=== PATIENT | female | born 1980 | race Caucasian/White ===

== ENCOUNTER 2017-12-31 21:08 | Emergency (ER) | payer SELFPAY ==
[2017-12-31 21:57] LABS: Absolute Lymphocytes (CBC) 3.4 K/uL (0.7-4.9); Absolute Neutrophil 9.4 K/uL (1.8-8.0); Eosinophils % 1.1 % (0-4.4); Hematocrit 43.8 % (36.0-45.0); Lymphocytes % 24.2 % (15.3-44.8); MCH 34.2 pg (27.0-35.0); MCV 102.4 fL (80-100); MPV 8.1 fL (7.6-11.3); Monocytes % 6.9 % (3.3-12.3); RBC Red Blood Cell Count 4.27 M/uL (3.86-4.86)
[2017-12-31 22:00] LABS: Protime INR 1.01
[2017-12-31 22:06] LABS: Bicarbonate 31 mEq/L (21-31); Glucose Level 117 mg/dL (65-120); Potassium 3.5 mEq/L (3.6-5.0); Sodium Level 138 mEq/L (135-145)
[2017-12-31 22:12] LABS: ALT/SGPT 33 IU/L (10-60); AST/SGOT 57 IU/L (10-42); Albumin 3.6 g/dL (3.2-5.5); Alkaline Phosphatase 134 IU/L (42-121); BUN Blood Urea Nitrogen 8 mg/dL (6-20); Bilirubin Direct 0.2 mg/dL (0-0.2); Bilirubin Total 0.6 mg/dL (0.3-1.2); Creatine Phosphokinase 36 IU/L (22-269); Glomerular Filtration Rate > 90 mL/min (=/>90); Magnesium 1.7 mg/dL (1.8-2.5); Protein, Total 7.1 g/dL (6.0-8.3)
[2017-12-31 22:15] LABS: CKMB Creatine Kinase MB 1.4 ng/ml (0.3-4.0)
[2017-12-31] MEDS ORDERED: KETOROLAC 30 MG/ML INJ ONE (23:55)
[2018-01-01 00:05] LABS: Urine Blood NEGATIVE (NEG); Urine Glucose NEGATIVE (NEG); Urine Protein 1+ (NEG)
--- NOTE | 2018-01-01 03:12 | EDPHYS ---
Physician Documentation [facility] Name: Yari Smith Age: 37 yrs Sex: Female : 1980 Arrival Date: 12/31/2017 Time: 21:10 Bed 8 Private MD: ED Physician Jaylen Gutierrez HPI: 12/31 23:33 This 37 yrs old Female presents to ER via Wheelchair with complaints of LEG tw4 NUMBNESS, High Blood Pressure. 23:33 The patient has elevated blood pressure and discovered this at home. Onset: The tw4 symptoms/episode began/occurred today. Modifying factors:. Severity of symptoms: At its worst the blood pressure was moderate, in the emergency department the blood pressure is unchanged. The patient has not experienced similar symptoms in the past. 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 - Social history:: Smoking status: Patient uses tobacco products, smokes one pack cigarettes per day. Patient uses street drugs, marijuana. ROS: 23:33 Constitutional: Negative for fever, chills, and weight loss, Cardiovascular: Negative tw4 for chest pain, palpitations, and edema, Respiratory: Negative for shortness of breath, cough, wheezing, and pleuritic chest pain, Abdomen/GI: Negative for abdominal pain, nausea, vomiting, diarrhea, and constipation, MS/Extremity: Negative for injury and deformity, Skin: Negative for injury, rash, and discoloration. 23:33 Neuro: Positive for numbness, Negative for altered mental status, dizziness, gait disturbance, headache, speech changes, syncope, near syncope, tingling, tinnitus, tremor, visual changes. Exam: 23:33 Constitutional: This is a well developed, well nourished patient who is awake, alert, tw4 and in no acute distress. Head/Face: Normocephalic, atraumatic. Chest/axilla: Normal chest wall appearance and motion. Nontender with no deformity. No lesions are appreciated. Cardiovascular: Regular rate and rhythm with a normal S1 and S2. No gallops, murmurs, or rubs. Normal PMI, no JVD. No pulse deficits. Respiratory: Lungs have equal breath sounds bilaterally, clear to auscultation and percussion. No rales, rhonchi or wheezes noted. No increased work of breathing, no retractions or nasal flaring. Abdomen/GI: Soft, non-tender, with normal bowel sounds. No distension or tympany. No guarding or rebound. No evidence of tenderness throughout. Back: No spinal tenderness. No costovertebral tenderness. Full range of motion. 23:33 Musculoskeletal/extremity: Extremities: grossly normal except: left foot cool to touch compared to right, good cap refill and perfusion, ROM: no acute changes, Perfusion: the patient is normally perfused throughout, Perfusion: the extremity is pink, warm. Vital Signs: 21:20 BP 128 / 80; Pulse 96; Resp 16; Temp 97.4; Pulse Ox 100% on R/A; Weight 63.5 kg (R); la1 Height 5 ft. 3 in. (160.02 cm); 21:52 BP 139 / 104; Pulse 88; Resp 14; Pulse Ox 97% on R/A; Pain 8/10; tl1 22:19 BP 115 / 79; Pulse 77; Resp 19; Pulse Ox 98% ; tl1 0407 00:44 BP 137 / 86; Pulse 90; Resp 18; Pulse Ox 98% on R/A; tl2 01:30 BP 136 / 97; Pulse 83; Resp 16; Pulse Ox 97% on R/A; tl2 03:18 BP 139 / 81; Pulse 87; Resp 17; Temp 97.6; Pulse Ox 98% ; Pain 2/10; tl1 12/31 21:20 Body Mass Index 24.80 (63.50 kg, 160.02 cm) la1 MDM: 12/31 21:28 Patient medically screened. tw4 23:33 Differential diagnosis: hypertensive crisis, arterial occlusion, deep venous tw4 thrombosis. Data reviewed: vital signs, nurses notes. Counseling: I had a detailed discussion with the patient and/or guardian regarding: the historical points, exam findings, and any diagnostic results supporting the discharge/admit diagnosis. 12/31 21:31 Order name: Basic Metabolic Panel; Complete Time: 22:48 tw4 12/31 21:31 Order name: BNP; Complete Time: 22:48 12/31 21:31 Order name: CBC with Diff; Complete Time: 22:48 12/31 21:31 Order name: Ckmb; Complete Time: 22:48 12/31 21:31 Order name: CPK; Complete Time: 22:48 12/31 21:31 Order name: LFT's; Complete Time: 22:48 12/31 21:31 Order name: Magnesium; Complete Time: 22:48 12/31 21:31 Order name: PT-INR; Complete Time: 22:48 12/31 21:31 Order name: Ptt, Activated; Complete Time: 22:48 12/31 21:31 Order name: Troponin (emerg Dept Use Only); Complete Time: 22:48 12/31 21:31 Order name: XRAY Chest (1 view) 12/31 22:39 Order name: Urine Dipstick--Ancillary (enter results); Complete Time: 00:19 oe 12/31 22:40 Order name: Urine --Ancillary (enter results); Complete Time: 00:19 oe 01/01 00:55 Order name: Troponin (emerg Dept Use Only) 12/31 21:31 Order name: Urine Test (obtain specimen); Complete Time: 22:38 12/31 21:31 Order name: Cardiac monitoring; Complete Time: 21:45 12/31 21:31 Order name: EKG - Nurse/Tech; Complete Time: 21:38 12/31 21:31 Order name: IV Saline Lock; Complete Time: 21:39 12/31 21:31 Order name: Labs collected and sent; Complete Time: 21:39 12/31 21:31 Order name: O2 Per Protocol; Complete Time: 21:45 12/31 21:31 Order name: O2 Sat Monitoring; Complete Time: 21:45 12/31 21:31 Order name: Urine Dipstick-Ancillary (obtain specimen); Complete Time: 22:38 12/31 21:36 Order name: Extrem Venous W Compress Adrian EDMS 12/31 21:38 Order name: CT Chest For PE Angio tw4 Administered Medications: 23:58 Drug: TORadol 30 mg Route: IVP; Infused Over: 2 mins; Site: left upper arm; tl1 01/01 03:17 Follow up: Response: No adverse reaction; Marked relief of symptoms; Pain is decreased tl1 Disposition: 01/01/18 03:11 Discharged to Home. Impression: Myalgia. - Condition is Stable. - Discharge Instructions: Musculoskeletal Pain, Muscle Pain, Adult, Smoking Cessation, Smoking Cessation, Tips For Success. - Prescriptions for Ibuprofen 800 mg Oral Tablet - take 1 tablet by ORAL route every 8 hours As needed take with food; 30 tablet. - Medication Reconciliation Form, Thank You Letter, Antibiotic Education, Prescription Opioid Use form. - Follow up: Private Physician; When: As needed; Reason: Recheck today's complaints, Continuance of care, Re-evaluation by your physician. - Problem is new. - Symptoms have improved. Signatures: Dispatcher [employer] EDMS Kali Pope RN RN la1 Yaneth Ng RN RN tl1 Jaylen Gutierrez MD MD tw4 Corrections: (The following items were deleted from the chart) 12/31 21:36 21:32 Extremity Venous Uni Ltd+VAS.RAD.BRZ ordered. EDMS EDMS 21:36 21:32 Extremity Venous Uni Ltd+VAS.RAD.BRZ ordered. EDMS EDMS 21:38 21:32 Lower Extremity Artery Uni Ltd+VAS.RAD.BRZ ordered. EDMS EDMS 21:38 21:32 Lower Extremity Artery Uni Ltd+VAS.RAD.BRZ ordered. EDMS EDMS
--- NOTE | 2018-01-01 03:12 | ER ---
Nurse's Notes [facility] Name: Yari Smith Age: 37 yrs Sex: Female : 1980 Arrival Date: 12/31/2017 Time: 21:10 Bed 8 Private MD: Diagnosis: Myalgia Presentation: 12/31 21:19 Presenting complaint: Patient states: I am having pain in numbness in both of my legs, la1 last time this happened I had ULICES DVT and was [place]. Pt reports pain started today. Pt reports chest pain that started last night as well. Transition of care: patient was not received from another setting of care. Onset of symptoms was December 31, 2017. Care prior to arrival: None. 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 - Social history:: Smoking status: Patient uses tobacco products, smokes one pack cigarettes per day. Patient uses street drugs, marijuana. Screenin:37 Abuse screen: Denies threats or abuse. Denies injuries from another. Nutritional tl1 screening: No deficits noted. Tuberculosis screening: No symptoms or risk factors identified. Fall Risk IV access (20 points). Assessment: 21:53 General: Appears uncomfortable, Behavior is calm, cooperative, appropriate for age. tl1 Pain: Complains of pain in chest, right arm, left arm, right leg and left leg Pain currently is 8 out of 10 on a pain scale. Quality of pain is described as burning, aching, sharp. Neuro: Level of Consciousness is awake, alert, obeys commands, Oriented to person, place, time, situation. Cardiovascular: Reports chest pain, Capillary refill < 3 seconds Patient's skin is warm and dry. Respiratory: Airway is patent Trachea midline Respiratory effort is even, unlabored, Respiratory pattern is regular, symmetrical, Breath sounds are clear bilaterally. GI: Abdomen is non-distended, Bowel sounds present X 4 quads. Abd is soft and non tender X 4 quads. : No signs and/or symptoms were reported regarding the genitourinary system. Musculoskeletal: Reports numbness in right leg and left leg pain in right leg and left leg. 22:25 Reassessment: Patient appears in no apparent distress at this time. Patient and/or tl2 family updated on plan of care and expected duration. Pain level reassessed. Patient is alert, oriented x 3, equal unlabored respirations, skin warm/dry/pink. sent pt to restroom to give urine sample for UPT before CT scan. 01/01 00:44 Reassessment: Patient appears in no apparent distress at this time. Patient and/or tl2 family updated on plan of care and expected duration. Pain level reassessed. Patient is alert, oriented x 3, equal unlabored respirations, skin warm/dry/pink. Vital Signs: 12/31 21:20 BP 128 / 80; Pulse 96; Resp 16; Temp 97.4; Pulse Ox 100% on R/A; Weight 63.5 kg (R); la1 Height 5 ft. 3 in. (160.02 cm); 21:52 BP 139 / 104; Pulse 88; Resp 14; Pulse Ox 97% on R/A; Pain 8/10; tl1 22:19 BP 115 / 79; Pulse 77; Resp 19; Pulse Ox 98% ; tl1 01/01 00:44 BP 137 / 86; Pulse 90; Resp 18; Pulse Ox 98% on R/A; tl2 01:30 BP 136 / 97; Pulse 83; Resp 16; Pulse Ox 97% on R/A; tl2 03:18 BP 139 / 81; Pulse 87; Resp 17; Temp 97.6; Pulse Ox 98% ; Pain 2/10; tl1 12/31 21:20 Body Mass Index 24.80 (63.50 kg, 160.02 cm) la1 ED Course: 12/31 21:10 Patient arrived in ED. al2 21:20 Triage completed. la1 21:21 Arm band placed on left wrist. la1 21:21 Patient has correct armband on for positive identification. Placed in gown. Bed in low tl1 position. Call light in reach. Side rails up X 1. Adult w/ patient. 21:28 Jaylen Gutierrez MD is Attending Physician. tw4 21:37 Yaneth Ng, RN is Primary Nurse. tl1 21:37 No provider procedures requiring assistance completed. Inserted saline lock: 20 gauge tl1 in right antecubital area, using aseptic technique. Blood collected. 21:41 Radiology exam delayed due to lab results not completed at this time. (BUN/Creatinine) jg1 test not completed at this time. 21:51 XRAY Chest (1 view) In Process Unspecified. EDMS 21:51 X-ray completed. Portable x-ray completed in exam room. Patient tolerated procedure kc2 well. 22:27 Radiology exam delayed due to test not completed at this time. jg1 22:37 Patient taken to ultrasound. abel 23:[address] abel 23:31 Extrem Venous W Compress Ulices In Process Unspecified. EDMS 23:44 Radiology exam delayed due to IV insertion attempt and/or patient not having jg1 appropriate IV at this time. 23:50 Inserted 18 gauge 10 cm midline to left upper basilic vein on first attempt. Line with fc good blood return and flushes well. 0407 00:09 CT Chest For PE Angio In Process Unspecified. EDMS 03:18 IV discontinued, intact, bleeding controlled, No redness/swelling at site. Pressure tl1 dressing applied. Administered Medications: 04 23:58 Drug: TORadol 30 mg Route: IVP; Infused Over: 2 mins; Site: left upper arm; tl1 04 03:17 Follow up: Response: No adverse reaction; Marked relief of symptoms; Pain is decreased tl1 Outcome: 03:11 Discharge ordered by . tw4 03:19 Discharged to home ambulatory, with family. tl1 03:19 Condition: good 03:19 Discharge instructions given to patient, family, Instructed on discharge instructions, follow up and referral plans. medication usage, Demonstrated understanding of instructions, follow-up care, medications, Prescriptions given X 1. 03:19 Patient left the ED. tl1 Signatures: Dispatcher [employer] EDMS Felicia Patterson Felicia, RN RN fc Attema, Lee, RN RN stephen1 Yaneth Ng, RN RN tl1 Dmitri Cook jd, Kelsie 2 Margaret Thornton RN RN gene2 Love, Jaylen Perez, [place] tw4
[2018-01-01 03:32] VITALS: BP 139/81; TEMP 97.6; O2SAT 98
--- NOTE | 2018-01-01 10:05 | RAD REPORT ---
EXAM DESCRIPTION: VAS - Extrem Venous W Compress Adrian - 12/31/2017 11:31 pm CLINICAL HISTORY: Bilateral leg edema and swelling. COMPARISON: None. TECHNIQUE: Real-time sonographic interrogation of the left and right lower extremity deep venous sys tems was performed. FINDINGS: Normal compressibility, flow augmentation, phasic flow and spontaneous flow is identified in both the left and right lower extremity deep venous systems. IMPRESSION: No sonographic evidence of left or right lower extremity deep venous thrombosis.
--- NOTE | 2018-01-01 10:38 | RAD REPORT ---
EXAM DESCRIPTION: RAD - Chest Single View - 12/31/2017 9:52 pm CLINICAL HISTORY: Chest pain. COMPARISON: 05/12/2016 FINDINGS: Portable technique limits examination quality. The lungs are grossly clear. The heart is normal in size. No displaced fractures. IMPRESSION: No acute intrathoracic process suspected.
--- NOTE | 2018-01-01 11:02 | RAD REPORT ---
EXAM DESCRIPTION: VAS - Lower Extremity Arterial Bilat - 12/31/2017 11:31 pm CLINICAL HISTORY: Leg pain COMPARISON: None. TECHNIQUE: Bilateral lower extremity arterial Doppler examination was performed with waveform charlotte santo FINDINGS: The right common femoral artery, superficial femoral artery and popliteal artery are triphasic. The r ight posterior tibial artery appears biphasic. The right dorsalis pedis artery appears monophasic and blunted. The left common femoral artery, superficial femoral artery and popliteal artery appear triphasic. The left posterior tibial artery and dorsalis pedis artery are biphasic. No occlusion is seen. IMPRESSION: Monophasic flow seen in the right dorsalis pedis artery suggesting distal disease on the right. Consider followup CT angiography of the lower extremities for better detailed assessment and evaluation for possible treatable lesion.
--- NOTE | 2018-01-01 11:07 | RAD REPORT ---
EXAM DESCRIPTION: CT - Chest For Pe Angio - 01/01/2018 6:47 am CLINICAL HISTORY: Chest pain. COMPARISON: None. TECHNIQUE: CT angiogram of the pulmonary arteries was performed with MIP. All CT scans are performed using dose optimization technique as appropriate and may include automated exposure control or mA/KV adjustment according to patient size. FINDINGS: No evidence of pulmonary thromboembolism. No acute aortic finding demonstrated. The lungs are clear. No significant pericardial or pleural fluid. No concerning bony finding. Fatty liver. IMPRESSION: No evidence of pulmonary thromboembolism. No acute lung findings.
--- NOTE | 2018-01-01 12:04 | EKG ---
Test Date: 2017-12-31 Test Time: 21:37:28 [employer]: CHAKA MEASUREMENT RESULTS: Intervals: Rate: 82 AK: 150 QRSD: 76 QT: 378 QTc: 441 [place]: P: 66 AK: 150 QRS: 25 T: 44 INTERPRETIVE STATEMENTS: Normal sinus rhythm Normal ECG Compared to ECG 05/10/2016 09:24:20 Sinus arrhythmia no longer present Myocardial infarct finding no longer present Electronically Signed On 01-01-18 12:03:31 CDT by Heraclio Aguilar
== END 2018-01-01 03:19 | disposition home or self-care (01) ==
LOC: ER 21:08
DX: M79.1 Myalgia (principal); Z86.718 Personal history of other venous thrombosis and embolism; Z79.01 Long term (current) use of anticoagulants
CPT/HCPCS: 36415; 71045; 71275; 80048; 80076; 81003; 81025; 82550; 82553; 83735; 83880; 84484; 85025; 85610; 85730; 93005; 93925; 93970; 96374; 99284; Q9967

== ENCOUNTER 2018-02-16 18:24 | Emergency (ER) | payer SELFPAY ==
[2018-02-16] MEDS ORDERED: ASPIRIN 81 MG CHEWABLE TABLET ONE (19:08)
[2018-02-16] MEDS ORDERED: CLOPIDOGREL 75 MG TABLET ONE (19:09)
[2018-02-16] MEDS ORDERED: ONDANSETRON 4 MG/2 ML VIAL ONE (19:18)
[2018-02-16] MEDS ORDERED: MORPHINE 4 MG/ML SYR ONE ×2 (19:24→19:40)
[2018-02-16 19:29] LABS: Absolute Lymphocytes (CBC) 2.9 K/uL (0.7-4.9); Absolute Monocytes 0.6 K/uL (0.1-1.3); Absolute Neutrophil 14.8 K/uL (1.8-8.0); Basophils % 0.8 % (0-1.3); Eosinophils % 0.6 % (0-4.4); Hematocrit 47.1 % (36.0-45.0); Lymphocytes % 15.5 % (15.3-44.8); MCV 102.1 fL (80-100); MPV 7.9 fL (7.6-11.3); Monocytes % 3.1 % (3.3-12.3); RBC Red Blood Cell Count 4.61 M/uL (3.86-4.86)
[2018-02-16] MEDS ORDERED: HEPARIN 5000 UNIT/ML 1 ML VIAL ONE (19:32)
[2018-02-16] MEDS ORDERED: HEPARIN/D5W 25,000 UNIT/500 ML BAG IV ONE (19:32)
[2018-02-16 19:36] LABS: Bicarbonate 21 mEq/L (21-31); Glucose Level 200 mg/dL (65-120); Potassium 3.9 mEq/L (3.6-5.0); Sodium Level 138 mEq/L (135-145)
[2018-02-16 19:42] LABS: ALT/SGPT 48 IU/L (10-60); AST/SGOT 51 IU/L (10-42); Albumin 4.4 g/dL (3.2-5.5); Alkaline Phosphatase 123 IU/L (42-121); BUN Blood Urea Nitrogen 14 mg/dL (6-20); Bilirubin Direct 0.1 mg/dL (0-0.2); Bilirubin Total 0.8 mg/dL (0.3-1.2); Creatine Phosphokinase 90 IU/L (22-269); Protein, Total 8.1 g/dL (6.0-8.3)
--- NOTE | 2018-02-16 19:55 | RAD REPORT ---
EXAM DESCRIPTION: RAD - Chest Single View - 02/16/2018 7:45 pm CLINICAL HISTORY: Chest pain COMPARISON: December 31 TECHNIQUE: AP portable chest image was obtained 1943 hours . FINDINGS: Lungs are clear. Heart and vasculature are normal. No measurable pleural effusion and no p neumothorax. No gross bony abnormality seen. No acute aortic findings suspected. IMPRESSION: No acute cardiopulmonary process. No significant interval change.
[2018-02-16 20:07] LABS: CKMB Creatine Kinase MB 6.4 ng/ml (0.3-4.0)
--- NOTE | 2018-02-16 21:08 | ER ---
Nurse's Notes [facility] Name: Yari Smith Age: 37 yrs Sex: Female : 1980 Arrival Date: 02/16/2018 Time: 18:25 Bed 2 Private MD: Out, [facility] Diagnosis: STEMI Presentation: 02/16 18:40 Presenting complaint: Patient states: Chest pain started 30-40 min. ago, goes down jl7 bilateral arms. Transition of care: patient was not received from another setting of care. Onset of symptoms was February 16, 2018. Risk Assessment: Do you want to hurt yourself or someone else? Patient reports no desire to harm self or others. Initial Sepsis Screen: Does the patient meet any 2 criteria? No. Patient's initial sepsis screen is negative. Does the patient have a suspected source of infection? No. Patient's initial sepsis screen is negative. Care prior to arrival: None. 18:40 Method Of Arrival: Ambulatory jl7 18:40 Acuity: RITO 2 jl7 Triage Assessment: 18:43 General: Appears uncomfortable, Behavior is cooperative, anxious. Pain: Complains of jl7 pain in diaphragm \\T\\ chest Pain radiates to right arm and left arm Pain currently is 10 out of 10 on a pain scale. Quality of pain is described as pressure, stabbing, Pain began 1 hour ago. Is continuous. EENT: No signs and/or symptoms were reported regarding the EENT system. Neuro: Level of Consciousness is awake, alert, obeys commands, Oriented to person, place, time, situation. Cardiovascular: Patient's skin is warm and dry. Respiratory: Airway is patent Respiratory effort is even, unlabored, Respiratory pattern is regular, symmetrical. Derm: Skin is pink, warm \\T\\ dry. 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 - Social history:: Smoking status: Patient uses tobacco products, smokes one pack cigarettes per day. Patient uses alcohol, on a daily basis. couple glasses of wine/day. street drugs, marijuana. - Ebola Screening: : No symptoms or risks identified at this time. Screenin:52 Abuse screen: Denies threats or abuse. Denies injuries from another. Nutritional hb screening: No deficits noted. Tuberculosis screening: No symptoms or risk factors identified. Fall Risk None identified. Assessment: 19:00 Also complains of nausea, shortness of breath. bp 19:00 General: Appears distressed, uncomfortable, Behavior is cooperative, appropriate for bp age, anxious. Pain: Complains of pain in chest Pain radiates to right arm and left arm. Neuro: Level of Consciousness is awake, alert, obeys commands, Oriented to person, place, time, situation, Appropriate for age. Cardiovascular: Reports chest pain, Chest pain is described as "worst pain of my life". Respiratory: Reports shortness of breath. GI: No signs and/or symptoms were reported involving the gastrointestinal system. : No signs and/or symptoms were reported regarding the genitourinary system. EENT: No deficits noted. Derm: No deficits noted. Musculoskeletal: No deficits noted. 19:33 Reassessment: Spoke to life flight who will be here in about 20 min. ao 19:53 Reassessment: [facility] AT B/S FOR TRANSPORT. bp Vital Signs: 18:35 BP 152 / 126; Pulse 81; Resp 24 S; Temp 98; Pulse Ox 100% on R/A; Weight 63.5 kg (R); jl7 Height 5 ft. 3 in. (160.02 cm) (R); Pain 10/10; 18:49 BP 147 / 125; Pulse 90; Resp 20; Pulse Ox 100% ; Pain 10/10; jl7 18:50 BP 146 / 113; Pulse 97; Resp 20; Pulse Ox 100% on R/A; mt 19:00 BP 152 / 127; Pulse 108; Resp 20; Pulse Ox 100% on R/A; mt 19:12 BP 148 / 122; Pulse 107; Resp 20; Pulse Ox 99% on R/A; mt 19:30 BP 156 / 123; Pulse 105; Resp 22; Pulse Ox 99% on R/A; mt 18:35 Body Mass Index 24.80 (63.50 kg, 160.02 cm) 7 ED Course: 18:25 Patient arrived in ED. sb2 18:29 Out, [facility] is Private Physician. sb2 18:32 Alisson Bone, SYDNI is Primary Nurse. jl7 18:41 Triage completed. jl7 18:43 Arm band placed on right wrist. jl7 18:52 Patient has correct armband on for positive identification. Placed in gown. Bed in low hb position. Call light in reach. Side rails up X 1. 18:52 Inserted saline lock: 22 gauge in left antecubital area, using aseptic technique. Blood hb collected. 19:00 campus monitor on. Pulse ox on. NIBP on. bp 19:03 Easton Toscano PA is PHCP. cp 19:03 Chang Daigle MD is Attending Physician. cp 19:10 Inserted saline lock: 20 gauge in right antecubital area, using aseptic technique. ao 19:15 Attending Physician role handed off by Chang Daigle MD ps1 19:15 Clemente Portillo MD is Attending Physician. ps1 19:18 Primary Nurse role handed off by Alisson Bone RN bp 19:18 Houston Wilson, SYDNI is Primary Nurse. bp 19:40 Report given to MONO TROY AT [facility] CON[facility]. bp 19:40 No provider procedures requiring assistance completed. Patient transferred, IV remains bp in place. Oxygen administration via nasal cannula \\T\\ 2L/min. Administered Medications: 19:08 Drug: Aspirin Chewable Tablet 324 mg Route: PO; jl7 19:56 Follow up: Response: No adverse reaction bp 19:10 Drug: PlaVIX 600 mg Route: PO; jl7 19:56 Follow up: Response: No adverse reaction bp 19:22 Drug: Zofran 4 mg Route: IVP; Site: right antecubital; fc 19:55 Follow up: Response: Nausea is decreased bp 19:27 Drug: morphine 4 mg Route: IVP; Site: right antecubital; fc 19:55 Follow up: Response: Pain is decreased bp 19:36 Drug: Heparin (OH-Bolus No thrombolytic) - HEParin 60 units/kg {Co-Signature: bp (Dana Self RN).} Route: IVP; Site: left antecubital; 19:56 Follow up: Response: No adverse reaction bp 19:36 Drug: Heparin (OH Drip) 12 units/kg/hr - (HEParin 79187 units, D5W 500 ml) bp {Co-Signature: fc (Dana Self RN).} Route: IV; Rate: calculated rate; Site: left antecubital; 19:55 Follow up: IV Status: Infusion continued upon transfer bp 19:43 Drug: morphine 4 mg Route: IVP; Site: left antecubital; bp 19:55 Follow up: Response: No adverse reaction; Pain is decreased bp Outcome: 19:54 Transferred by helicopter to [facility]. bp 19:54 critical 19:54 Instructed on the need for transfer. 20:02 ER care complete, transfer ordered by . ps1 20:13 Patient left the ED. bp Signatures: Dispatcher [employer] Dana Vuong RN RN fc Easton Toscano PA PA cp Ortiz, Alex, RN RN Viola Flores RN RN Alisson Underwood RN RN jl7 Irma Norton mo Houston Wilson RN RN bp Clemente Portillo MD MD ps1 Nicolasa Lanza kw1 Velma Yan sb2 Dana Self RN fc Corrections: (The following items were deleted from the chart) 19:40 19:[address] via stretcher. kw1 mw3 19:42 19:40 BP 146 / 113; Pulse 97bpm; Resp 20bpm; Pulse Ox 100% RA; mt mo 20:06 19:46 In radiology for Chest Single View+RAD.RAD.BRLuis. ED mw3
--- NOTE | 2018-02-16 21:08 | EDPHYS ---
Physician Documentation [facility] Name: Yari Smith Age: 37 yrs Sex: Female : 1980 Arrival Date: 02/16/2018 Time: 18:25 Bed 2 Private MD: Out, [facility] ED Physician Clemente Portillo HPI: 02/16 19:15 This 37 yrs old Female presents to ER via Ambulatory with complaints of Chest ps1 Pain. 19:15 The patient or guardian reports chest pain that is located primarily in the anterior ps1 chest wall. The pain radiates to both shoulders. Associated signs and symptoms: Pertinent positives: diaphoresis, nausea. The chest pain is described as a pressure. started 45 min manager paper. Non exertional. Hx of DVT on warfarin 2mg. Has not had levels checked in a while. STEMI on EKG. . 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 - Social history:: Smoking status: Patient uses tobacco products, smokes one pack cigarettes per day. Patient uses alcohol, on a daily basis. couple glasses of wine/day. street drugs, marijuana. - Ebola Screening: : No symptoms or risks identified at this time. ROS: 19:15 Constitutional: Negative for fever, chills, and weight loss, Eyes: Negative for injury, ps1 pain, redness, and discharge, ENT: Negative for injury, pain, and discharge, Neck: Negative for injury, pain, and swelling, Respiratory: Negative for shortness of breath, cough, wheezing, and pleuritic chest pain, Abdomen/GI: Negative for abdominal pain, nausea, vomiting, diarrhea, and constipation, Back: Negative for injury and pain, : Negative for injury, bleeding, discharge, and swelling, MS/Extremity: Negative for injury and deformity. 19:15 Cardiovascular: Positive for chest pain, of the anterior aspect of left upper chest. Exam: 19:15 Constitutional: This is a well developed, well nourished patient who is awake, alert, ps1 and in no acute distress. Head/Face: Normocephalic, atraumatic. Eyes: Pupils equal round and reactive to light, extra-ocular motions intact. Lids and lashes normal. Conjunctiva and sclera are non-icteric and not injected. Chest/axilla: Normal chest wall appearance and motion. Nontender with no deformity. No lesions are appreciated. Respiratory: Lungs have equal breath sounds bilaterally, clear to auscultation and percussion. No rales, rhonchi or wheezes noted. No increased work of breathing, no retractions or nasal flaring. Abdomen/GI: Soft, non-tender, with normal bowel sounds. No distension or tympany. No guarding or rebound. No evidence of tenderness throughout. Back: No spinal tenderness. No costovertebral tenderness. Full range of motion. Skin: Warm, dry with normal turgor. Normal color with no rashes, no lesions, and no evidence of cellulitis. MS/ Extremity: Pulses equal, no cyanosis. Neurovascular intact. Full, normal range of motion. Neuro: Awake and alert, GCS 15, oriented to person, place, time, and situation. Cranial nerves II-XII grossly intact. Sensory grossly intact. 19:15 Cardiovascular: Rate: tachycardic, Rhythm: regular, Pulses: no pulse deficits are appreciated, Edema: is not appreciated. 19:15 ECG was reviewed by the Attending Physician. ps1 Vital Signs: 18:35 BP 152 / 126; Pulse 81; Resp 24 S; Temp 98; Pulse Ox 100% on R/A; Weight 63.5 kg (R); jl7 Height 5 ft. 3 in. (160.02 cm) (R); Pain 10/10; 18:49 BP 147 / 125; Pulse 90; Resp 20; Pulse Ox 100% ; Pain 10/10; jl7 18:50 BP 146 / 113; Pulse 97; Resp 20; Pulse Ox 100% on R/A; mt 19:00 BP 152 / 127; Pulse 108; Resp 20; Pulse Ox 100% on R/A; mt 19:12 BP 148 / 122; Pulse 107; Resp 20; Pulse Ox 99% on R/A; mt 19:30 BP 156 / 123; Pulse 105; Resp 22; Pulse Ox 99% on R/A; mt 18:35 Body Mass Index 24.80 (63.50 kg, 160.02 cm) jl7 MDM: 19:03 Patient medically screened. cp 19:10 ED course: Pt brought back, when triage was doen, ECG performed, ECG at [address] rn elevation anterolateral leads with depression inferior leads. 40 min chest pain. Paged Dr. aguilar, returned call at 1911, recommends transfer given no after hours capability at this facility.. 19:15 Data reviewed: vital signs, nurses notes, EKG. ps1 19:37 Data interpreted: riprap placer: Pulse oximetry:. Test interpretation: by ED ps1 physician or midlevel provider: ECG. Physician consultation: Called Dr. Aguilar for STEMI requested pt to be transferred as they do not have staff to activate labor arbitrator hearing office.. Special discussion:. ED course: STEMI protocol initiated. Pt to be flown to [facility] with STEMI activation. Pt unable to be scanned for PE as this would delay care. Pt given ASA, Morphine, Plavix. Any episodes of hypotension we will thrombolyse. . 02/16 19:06 Order name: Basic Metabolic Panel 02/16 19:06 Order name: BNP; Complete Time: 20:08 02/16 19:06 Order name: CBC with Diff; Complete Time: 19:46 02/16 19:06 Order name: Ckmb 02/16 19:06 Order name: CPK 02/16 19:06 Order name: LFT's; Complete Time: 20:08 02/16 19:06 Order name: Magnesium; Complete Time: 20:08 02/16 19:06 Order name: PT-INR; Complete Time: 19:46 rn 02/16 19:06 Order name: Ptt, Activated; Complete Time: 19:46 rn 02/16 19:06 Order name: Troponin (emerg Dept Use Only); Complete Time: 19:46 rn 02/16 19:07 Order name: Basic Metabolic Panel; Complete Time: 20:08 EDCA 02/16 19:07 Order name: CKMB Creatine Kinase MB; Complete Time: 20:08 [facility] 02/16 19:07 Order name: Creatine Phosphokinase; Complete Time: 20:08 EDCA 02/16 19:04 Order name: EKG; Complete Time: 19:05 cp 02/16 19:04 Order name: EKG - Nurse/Tech; Complete Time: 19:23 cp 02/16 19:06 Order name: XRAY Chest (1 view); Complete Time: 20: rn 02/16 19:06 Order name: EKG; Complete Time: : rn 02/16 19:06 Order name: Cardiac monitoring; Complete Time: : rn 02/16 19:06 Order name: EKG - Nurse/Tech; Complete Time: : rn 02/16 19:06 Order name: IV Saline Lock; Complete Time: : rn 02/16 19:06 Order name: Labs collected and sent; Complete Time: : rn 02/16 19:06 Order name: O2 Per Protocol; Complete Time: rn 02/16 19:06 Order name: O2 Sat Monitoring; Complete Time: rn EC:15 Rate is 108 beats/min. Rhythm is regular. QRS [place] is Normal. MN interval is normal. ps1 QRS interval is normal. QT interval is normal. Q waves are Present. ST Segment is elevated in leads V2, V3, V4, V5. ST Segment is depressed in leads II, III, aVF. Clinical impression: STEMI. Interpreted by me. Administered Medications: 19:08 Drug: Aspirin Chewable Tablet 324 mg Route: PO; 7 19:56 Follow up: Response: No adverse reaction bp 19:10 Drug: PlaVIX 600 mg Route: PO; jl7 19:56 Follow up: Response: No adverse reaction bp 19:22 Drug: Zofran 4 mg Route: IVP; Site: right antecubital; 19:55 Follow up: Response: Nausea is decreased bp 19:27 Drug: morphine 4 mg Route: IVP; Site: right antecubital; fc 19:55 Follow up: Response: Pain is decreased bp 19:36 Drug: Heparin (CO-Bolus No thrombolytic) - HEParin 60 units/kg {Co-Signature: fc bp (Dana Self RN).} Route: IVP; Site: left antecubital; 19:56 Follow up: Response: No adverse reaction bp 19:36 Drug: Heparin (CO Drip) 12 units/kg/hr - (HEParin 15685 units, D5W 500 ml) bp {Co-Signature: fc (Dana Self RN).} Route: IV; Rate: calculated rate; Site: left antecubital; 19:55 Follow up: IV Status: Infusion continued upon transfer bp 19:43 Drug: morphine 4 mg Route: IVP; Site: left antecubital; bp 19:55 Follow up: Response: No adverse reaction; Pain is decreased bp Disposition: 19:37 Critical Care:. ps1 19:42 Critical Care:. ps1 Disposition: 02/16/18 20:02 Transfer ordered to [facility]. Diagnosis is STEMI. - Reason for transfer: Higher level of care. - Accepting physician is Mike. - Condition is Serious. - Problem is new. - Symptoms are unchanged. Critical care time excluding procedures: 19:37 Critical care time: Bedside Care: 30 minutes, Consultation: 10 minutes. Total time: 40 ps1 minutes Signatures: Dispatcher [employer] Dana Vuong RN RN fc Chang Daigle MD MD rn Page, Corey, PA PA cp Leal, Jahala RN RN jl7 Houston Wilson RN RN bp Singer, Phillip, MD MD ps1 Dana Self RN fc Corrections: (The following items were deleted from the chart) 20:13 20:02 02/16/2018 20:02 Transfer ordered to [facility]. bp Diagnosis is STEMI. Reason for transfer: Higher level of care. Accepting physician is Mike. Condition is Serious. Problem is new. Symptoms are unchanged. ps1
[2018-02-16 21:33] VITALS: TEMP 98
[2018-02-16 21:38] VITALS: O2SAT 99
[2018-02-16 21:39] VITALS: BP 156/123
--- NOTE | 2018-02-17 06:44 | EKG ---
Test Date: 2018-02-16 Test Time: 18:56:33 Geographic Analyst: NUNU MEASUREMENT RESULTS: Intervals: Rate: 100 TX: 130 QRSD: 84 QT: 362 QTc: 466 [place]: P: 63 TX: 130 QRS: -28 T: 40 INTERPRETIVE STATEMENTS: Sinus rhythm Anteroseptal infarct, possibly acute Lateral injury pattern ACUTE MS / STEMI Abnormal ECG Compared to ECG 02/16/2018 18:55:21 Atrial premature complex(es) no longer present Myocardial infarct finding still present Electronically Signed On 02-17-18 06:43:37 CDT by Heraclio Aguilar
--- NOTE | 2018-02-17 06:45 | EKG ---
Test Date: 2018-02-16 Test Time: 18:55:21 Cable Installer: NUNU MEASUREMENT RESULTS: Intervals: Rate: 99 LA: QRSD: 78 QT: 348 QTc: 446 [place]: P: LA: QRS: -57 T: -13 INTERPRETIVE STATEMENTS: Sinus rhythm with premature supraventricular complexes Anteroseptal infarct, possibly acute Lateral injury pattern ACUTE PA / STEMI Abnormal ECG Compared to ECG 12/31/2017 21:37:28 Atrial premature complex(es) now present Myocardial infarct finding now present Electronically Signed On 02-17-18 06:44:40 CDT by Heraclio Aguilar
--- NOTE | 2018-02-17 10:04 | EKG ---
Test Date: 2018-02-16 Test Time: 18:58:51 Senior Hr Generalist: NUNU MEASUREMENT RESULTS: Intervals: Rate: 108 LA: 134 QRSD: 104 QT: 354 QTc: 474 [place]: P: 75 LA: 134 QRS: -50 T: 51 INTERPRETIVE STATEMENTS: Age and gender specific ECG analysis Sinus tachycardia with occasional premature ventricular complexes and fusion complexes Incomplete right bundle branch block Left anterior fascicular block Anteroseptal infarct, possibly acute Lateral injury pattern ACUTE MO / STEMI Abnormal ECG Compared to ECG 02/16/2018 18:57:37 Fusion complex(es) now present Ventricular premature complex(es) now present Incomplete right bundle-branch block now present Myocardial infarct finding still present Electronically Signed On 02-17-18 10:03:28 CDT by Tomás Rivera
--- NOTE | 2018-02-17 10:05 | EKG ---
Test Date: 2018-02-16 Test Time: 18:57:37 House Servant: NUNU MEASUREMENT RESULTS: Intervals: Rate: 96 [place]: QRSD: 84 QT: 356 QTc: 449 [place]: P: AL: QRS: -46 T: 23 INTERPRETIVE STATEMENTS: Age and gender specific ECG analysis Undetermined rhythm Left anterior fascicular block Anterolateral infarct, possibly acute ACUTE PR / STEMI Abnormal ECG Compared to ECG 02/16/2018 18:56:33 Left anterior fascicular block now present Sinus rhythm no longer present Myocardial infarct finding still present Electronically Signed On 02-17-18 10:03:29 CDT by Tomás Rivera
== END 2018-02-16 20:13 | disposition short-term general hospital (02) ==
LOC: ER 18:24
DX: I21.3 ST elevation (STEMI) myocardial infarction of unspecified site (principal); F17.210 Nicotine dependence, cigarettes, uncomplicated; Z79.01 Long term (current) use of anticoagulants; Z86.718 Personal history of other venous thrombosis and embolism
CPT/HCPCS: 36415; 71045; 80048; 80076; 82550; 82553; 83735; 83880; 84484; 85025; 85610; 85730; 93005; 99285; J1644; J2405

== ENCOUNTER 2018-03-05 23:51 | Emergency (ER) | payer OTHER, SELFPAY ==
[2018-03-06] MEDS ORDERED: MORPHINE 4 MG/ML SYR ONE ×2 (00:42→03:14)
[2018-03-06 01:12] LABS: Absolute Lymphocytes (CBC) 1.4 K/uL (0.7-4.9); Absolute Monocytes 0.6 K/uL (0.1-1.3); Absolute Neutrophil 8.2 K/uL (1.8-8.0); Basophils % 1.3 % (0-1.3); Eosinophils % 1.5 % (0-4.4); Hematocrit 33.3 % (36.0-45.0); Lymphocytes % 12.9 % (15.3-44.8); MCH 34.2 pg (27.0-35.0); MCV 101.2 fL (80-100); MPV 7.8 fL (7.6-11.3); Monocytes % 6.1 % (3.3-12.3); RBC Red Blood Cell Count 3.29 M/uL (3.86-4.86)
[2018-03-06 01:20] LABS: Protime INR 4.45
[2018-03-06 01:21] LABS: Bicarbonate 26 mEq/L (21-31); Glucose Level 106 mg/dL (65-120); Potassium 3.7 mEq/L (3.6-5.0); Sodium Level 141 mEq/L (135-145)
[2018-03-06 01:24] LABS: BUN Blood Urea Nitrogen 6 mg/dL (6-20); Creatine Phosphokinase 39 IU/L (22-269)
[2018-03-06 01:30] LABS: CKMB Creatine Kinase MB 2.9 ng/ml (0.3-4.0)
--- NOTE | 2018-03-06 01:57 | ER ---
Nurse's Notes [facility] Name: Yari Smith Age: 37 yrs Sex: Female : 1980 Arrival Date: 03/05/2018 Time: 23:53 Bed 4 Private MD: Diagnosis: Chest pain, unspecified;Elevated troponin Presentation: 03/05 23:45 Presenting complaint: Patient states: that she started to have left arm pain at 2130. fc She thought if she rested it would go away. The pain progressed to her chest and then she became short of breath. EMS called. Transition of care: patient was not received from another setting of care. Onset of symptoms was March 05, 2018 at 21:30. Risk Assessment: Do you want to hurt yourself or someone else? Patient reports no desire to harm self or others. Initial Sepsis Screen: Does the patient meet any 2 criteria? HR > 90 bpm. Does the patient have a suspected source of infection? No. Patient's initial sepsis screen is negative. Care prior to arrival: Medication(s) given: ASA, 81 mg, x 3, IV initiated. 20 GA, in the right wrist. 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 - Social history:: Smoking status: Patient/guardian denies using tobacco, the patient reports quitting approximately .1 years ago. - Family history:: not pertinent. - Ebola Screening: : Patient negative for fever greater than or equal to 101.5 degrees Fahrenheit, and additional compatible Ebola Virus Disease symptoms Patient denies exposure to infectious person Patient denies travel to an Ebola-affected area in the 21 days before illness onset. - Hospitalizations: : Patient was recently seen at. Screenin/09 23:58 Abuse screen: Denies threats or abuse. Nutritional screening: No deficits noted. fc Tuberculosis screening: No symptoms or risk factors identified. Fall Risk None identified. Assessment: 03/06 00:00 General: Appears in no apparent distress. Behavior is calm, cooperative. Pain: bb Complains of pain in mid-sternal area Pain currently is 4 out of 10 on a pain scale. Neuro: Level of Consciousness is awake, alert, obeys commands, Oriented to person, place, time, situation. Cardiovascular: Heart tones S1 S2 present Capillary refill < 3 seconds Patient's skin is warm and dry. Pulses are all present. Edema is absent. Rhythm is sinus rhythm. Respiratory: Airway is patent Respiratory effort is even, unlabored, Respiratory pattern is regular, Breath sounds are clear bilaterally. GI: Abdomen is non-distended, Bowel sounds present X 4 quads. Abd is soft and non tender X 4 quads. : No signs and/or symptoms were reported regarding the genitourinary system. Derm: Skin is dry, Skin is pale, Skin temperature is warm. Musculoskeletal: Circulation, motion, and sensation intact. 00:11 Reassessment: attempted to draw blood from IV unsuccessful, attempted butterfly draw bb from R AC unsuccessful lab called for blood draw. 01:01 Reassessment: Patient and/or family updated on plan of care and expected duration. Pain bb level reassessed. Patient is alert, oriented x 3, equal unlabored respirations, skin warm/dry/pink. Patient states feeling better. 02:02 Reassessment: Patient and/or family updated on plan of care and expected duration. Pain bb level reassessed. Patient is alert, oriented x 3, equal unlabored respirations, skin warm/dry/pink. pt instructed on need for transfer verbalized understanding of and agrees to plan of care. 02:44 Reassessment: report called to Suzette Espana RN at [facility]. bb 02:56 Reassessment: Patient and/or family updated on plan of care and expected duration. Pain bb level reassessed. Patient is alert, oriented x 3, equal unlabored respirations, skin warm/dry/pink. pt resting quietly, IV site intact, awaiting transport to [facility] for further evaluation and treatment. 03:16 Reassessment: EMS at bedside for transfer of pt to [facility] pt c/o bb worsening chest pain 03/06 Dr Daigle notified pt medicated see NOV. Pt is A\T\O x 4, resp unlabored, IV site intact, patent. Vital Signs: 03/05 23:45 BP 118 / 87; Pulse 97; Resp 18; Temp 98.2(O); Pulse Ox 99% on R/A; Weight 66.22 kg (R); fc Height 5 ft. 3 in. (160.02 cm) (R); Pain 02/03; 03/06 01:01 BP 108 / 87; Pulse 95; Resp 14 S; Pulse Ox 96% on R/A; Pain 01/04; bb 02:02 BP 102 / 75; Pulse 97; Resp 12 S; Pulse Ox 100% on R/A; bb 02:56 BP 114 / 86; Pulse 99; Resp 18; Temp 98.1(O); Pulse Ox 97% on R/A; bb 03/05 23:45 Body Mass Index 25.86 (66.22 kg, 160.02 cm) fc ED Course: 03/05 23:45 Arm band placed on Patient placed in an exam room, on a stretcher, on cardiac/vascular sonographer, fc on pulse oximetry. 23:45 Patient has correct armband on for positive identification. Placed in gown. Bed in low fc position. Call light in reach. Side rails up X2. traffic monitor specialist on. Pulse ox on. NIBP on. 23:45 No provider procedures requiring assistance completed. Maintain EMS IV. Dressing fc intact. Good blood return noted. Site clean \T\ dry. Gauge \T\ site: 20 gauge to right wrist. 23:53 Patient arrived in ED. rn 23:53 Chang Daigle MD is Attending Physician. rn 23:57 Triage completed. fc 03/06 00:07 Amna Gómez RN is Primary Nurse. bb 00:42 X-ray completed. Portable x-ray completed in exam room. Patient tolerated procedure kw well. 00:43 XRAY Chest (1 view) In Process Unspecified. EDMS 01:20 Notified ED physician of a critical lab result(s). INR of 4.45. 02:58 Patient transferred, IV remains in place. bb Administered Medications: 00:38 Drug: morphine 4 mg Route: IVP; Site: right wrist; bb 01:02 Follow up: Response: No adverse reaction; Pain is decreased bb 03:15 Drug: morphine 4 mg Route: IVP; Site: right wrist; bb 03:16 Follow up: Response: medication administered at transfer bb Outcome: 01:57 ER care complete, transfer ordered by . rn 02:58 Instructed on the need for transfer. bb 03:18 Transferred by ground EMS to [facility], Transfer form completed. X-rays sent bb w/ patient. 03:18 Condition: unchanged 03:18 Patient left the ED. bb Signatures: Dispatcher [employer] Dana Vuong RN RN fc Ballard, Brenda, RN RN bb Chang Daigle MD MD rn Whitley, Kimberlee kw
--- NOTE | 2018-03-06 01:57 | EDPHYS ---
Physician Documentation [facility] Department Name: Yari Smith Age: 37 yrs Sex: Female : 1980 Arrival Date: 03/05/2018 Time: 23:53 Bed 4 Private MD: ED Physician Chang Daigle HPI: 03/05 23:55 This 37 yrs old Female presents to ER via Unassigned with complaints of chest rn pain. 23:56 The patient or guardian reports chest pain that is located primarily in the chest rn diffusely. The pain radiates to both arms. Associated signs and symptoms: Pertinent positives: None. Pertinent negatives: shortness of breath, syncope, vomiting. The chest pain is described as dull. Duration: The patient or guardian reports multiple episodes, that are intermittent. Modifying factors: The symptoms are alleviated by nothing. the symptoms are aggravated by nothing. Severity of pain: At its worst the pain was moderate in the emergency department the pain has improved. The patient has experienced a previous episode. Pt with STEMI 1.5 weeks ago, home for 1 week, had stent placed, told prob had clotting disorder, on warfarin, report aching to left arm, spread to chest, now spread to right arm, feels different from recentMI. . 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 - Social history:: Smoking status: Patient/guardian denies using tobacco, the patient reports quitting approximately .1 years ago. - Family history:: not pertinent. - Ebola Screening: : Patient negative for fever greater than or equal to 101.5 degrees Fahrenheit, and additional compatible Ebola Virus Disease symptoms Patient denies exposure to infectious person Patient denies travel to an Ebola-affected area in the 21 days before illness onset. - Hospitalizations: : Patient was recently seen at. ROS: 03/05 23:57 Constitutional: Negative for fever, chills, and weight loss, Eyes: Negative for injury, rn pain, redness, and discharge, Neck: Negative for injury, pain, and swelling, Cardiovascular: Negative for palpitations, and edema, Respiratory: Negative for shortness of breath, cough, wheezing, and pleuritic chest pain, Abdomen/GI: Negative for abdominal pain, nausea, vomiting, diarrhea, and constipation, MS/Extremity: Negative for injury and deformity, Skin: Negative for injury, rash, and discoloration, Neuro: Negative for headache, weakness, numbness, tingling, and seizure. Exam: 23:57 Constitutional: This is a well developed, well nourished patient who is awake, alert, rn and in no acute distress. Head/Face: Normocephalic, atraumatic. Eyes: Pupils equal round and reactive to light, extra-ocular motions intact. Lids and lashes normal. Conjunctiva and sclera are non-icteric and not injected. Cornea within normal limits. Periorbital areas with no swelling, redness, or edema. Neck: Trachea midline, no thyromegaly or masses palpated, and no cervical lymphadenopathy. Supple, full range of motion without nuchal rigidity, or vertebral point tenderness. No Meningismus. Chest/axilla: Pacemaker in place with healing wounds, c/d/i Cardiovascular: Regular rate and rhythm with a normal S1 and S2. No gallops, murmurs, or rubs. Normal PMI, no JVD. No pulse deficits. Respiratory: Lungs have equal breath sounds bilaterally, clear to auscultation and percussion. No rales, rhonchi or wheezes noted. No increased work of breathing, no retractions or nasal flaring. Abdomen/GI: Soft, non-tender, with normal bowel sounds. No distension or tympany. No guarding or rebound. No evidence of tenderness throughout. MS/ Extremity: Pulses equal, no cyanosis. Neurovascular intact. Full, normal range of motion. Equal circumference. Neuro: Awake and alert, GCS 15, oriented to person, place, time, and situation. Cranial nerves II-XII grossly intact. Motor strength 5/5 in all extremities. Sensory grossly intact. Vital Signs: 23:45 BP 118 / 87; Pulse 97; Resp 18; Temp 98.2(O); Pulse Ox 99% on R/A; Weight 66.22 kg (R); fc Height 5 ft. 3 in. (160.02 cm) (R); Pain 5/10; 03/06 01:01 BP 108 / 87; Pulse 95; Resp 14 S; Pulse Ox 96% on R/A; Pain 4/10; bb 02:02 BP 102 / 75; Pulse 97; Resp 12 S; Pulse Ox 100% on R/A; bb 02:56 BP 114 / 86; Pulse 99; Resp 18; Temp 98.1(O); Pulse Ox 97% on R/A; bb 03/05 23:45 Body Mass Index 25.86 (66.22 kg, 160.02 cm) fc MDM: 03/05 23:53 Patient medically screened. 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 rn 03/06 01:56 Differential diagnosis: acute myocardial infarction, acute pericarditis, anxiety, rn coronary artery disease pleurisy, pneumonia, pneumothorax. Data reviewed: vital signs, nurses notes, lab test result(s), EKG, radiologic studies, plain films, and as a result, I will admit patient. Counseling: I had a detailed discussion with the patient and/or guardian regarding: the historical points, exam findings, and any diagnostic results supporting the discharge/admit diagnosis, lab results, radiology results, the need to transfer to another facility, for higher level of care. Response to treatment: the patient's symptoms have markedly improved after treatment. Admission orders: after a detailed discussion of the patient's condition and case, the admit orders are written by me. 03/05 23:54 Order name: Basic Metabolic Panel; Complete Time: rn 03/05 23:54 Order name: BNP rn 03/05 23:54 Order name: CBC with Diff; Complete Time: 01: rn 03/05 23:54 Order name: Ckmb; Complete Time: : rn 03/05 23:54 Order name: CPK; Complete Time: rn 03/05 23:54 Order name: PT-INR; Complete Time: 01:21 rn 03/05 23:54 Order name: Ptt, Activated; Complete Time: 01:21 rn 03/05 23:54 Order name: Troponin (emerg Dept Use Only); Complete Time: 01:30 rn 03/05 23:54 Order name: XRAY Chest (1 view) 03/05 23:54 Order name: EKG; Complete Time: 23:55 rn 03/06 02:40 Order name: Urine Dipstick--Ancillary (enter results) [facility] 03/06 02:40 Order name: Urine --Ancillary (enter results) [facility] 03/05 23:54 Order name: Cardiac monitoring; Complete Time: 00:07 rn 03/05 23:54 Order name: EKG - Nurse/Tech; Complete Time: 00:07 rn 03/05 23:54 Order name: IV Saline Lock; Complete Time: 00:07 rn 03/05 23:54 Order name: Labs collected and sent; Complete Time: 00:38 rn 03/05 23:54 Order name: O2 Per Protocol; Complete Time: 00:08 rn 03/05 23:54 Order name: O2 Sat Monitoring; Complete Time: 00:08 rn Administered Medications: 00:38 Drug: morphine 4 mg Route: IVP; Site: right wrist; bb 01:02 Follow up: Response: No adverse reaction; Pain is decreased bb 03:15 Drug: morphine 4 mg Route: IVP; Site: right wrist; bb 03:16 Follow up: Response: medication administered at transfer bb Disposition: 03/06/18 01:57 Transfer ordered to [facility]. Diagnosis are Chest pain, unspecified, Elevated troponin. - Reason for transfer: Higher level of care. - Accepting physician is MD Gustabo. - Condition is Stable. - Problem is new. - Symptoms have improved. Signatures: Dispatcher [employer] EDMS Dana Self RN RN fc Amna Gómez RN RN bb Chang Daigle MD MD furnace reliner: (The following items were deleted from the chart) 03:18 01:57 03/06/2018 01:57 Transfer ordered to [facility]. bb Diagnosis is Chest pain, unspecified; Elevated troponin. Reason for transfer: Higher level of care. Accepting physician is MD Gustabo. Condition is Stable. Problem is new. Symptoms have improved. rn
[2018-03-06 03:32] LABS: Urine Blood NEGATIVE (NEG); Urine Glucose NEGATIVE (NEG); Urine Protein NEGATIVE (NEG); Urine pH 5.5 (5.0-7.0)
[2018-03-06 03:43] VITALS: BP 114/86; TEMP 98.1; O2SAT 97
--- NOTE | 2018-03-06 09:10 | EKG ---
Test Date: 2018-03-05 Test Time: 23:53:10 [employer] L[employer] Monitor: CHAKA MEASUREMENT RESULTS: Intervals: Rate: 96 IA: 148 QRSD: 90 QT: 404 QTc: 510 [place]: P: 27 IA: 148 QRS: 151 T: 256 INTERPRETIVE STATEMENTS: Normal sinus rhythm Anterolateral infarct, age undetermined Prolonged QT Abnormal ECG Compared to ECG 02/16/2018 18:58:51 Prolonged QT interval now present Sinus tachycardia no longer present Fusion complex(es) no longer present Ventricular premature complex(es) no longer present Incomplete right bundle-branch block no longer present Left anterior fascicular block no longer present Myocardial infarct finding still present Electronically Signed On 03-06-18 09:08:29 CDT by Tomás Rivera
--- NOTE | 2018-03-06 10:46 | RAD REPORT ---
EXAM DESCRIPTION: Aryan Single View03/06/2018 12:45 am CLINICAL HISTORY: Chest pain COMPARISON: January 2018 FINDINGS: The lungs appear clear of acute infiltrate. The heart is borderline enlarged. Pacemaker l elsa are in place. IMPRESSION: No acute abnormalities displayed
== END 2018-03-06 03:18 | disposition short-term general hospital (02) ==
LOC: ER 23:51
DX: R07.9 Chest pain, unspecified (principal); R79.89 Other specified abnormal findings of blood chemistry; Z79.01 Long term (current) use of anticoagulants
CPT/HCPCS: 36415; 71045; 80048; 81003; 81025; 82550; 82553; 83880; 84484; 85025; 85610; 85730; 93005; 96374; 99285

== ENCOUNTER 2018-03-11 13:25 | Emergency (ER) | payer OTHER, SELFPAY ==
[2018-03-11] MEDS ORDERED: NA CHLORIDE 0.9% 500 ML ONE (13:44)
[2018-03-11] MEDS ORDERED: MORPHINE 4 MG/ML SYR ONE ×2 (13:44→14:02)
[2018-03-11] MEDS ORDERED: ONDANSETRON 4 MG/2 ML VIAL ONE (13:44)
[2018-03-11] MEDS ORDERED: METOPROLOL TARTRATE 5 MG/5 ML INJ IV ONE (13:44)
[2018-03-11] MEDS ORDERED: ASPIRIN 81 MG CHEWABLE TABLET ONE (13:58)
--- NOTE | 2018-03-11 14:05 | EKG ---
Test Date: 2018-03-11 Test Time: 13:27:31 Stitch Wheeler: MERCEDES MEASUREMENT RESULTS: Intervals: Rate: 102 WV: 150 QRSD: 84 QT: 346 QTc: 450 [place]: P: 56 WV: 150 QRS: 162 T: 85 INTERPRETIVE STATEMENTS: Sinus tachycardia Low voltage QRS Anterolateral infarct, age undetermined Abnormal ECG Compared to ECG 03/05/2018 23:53:10 Low QRS voltage now present Sinus rhythm no longer present Prolonged QT interval no longer present Myocardial infarct finding still present Electronically Signed On 03-11-18 14:04:05 CDT by Heraclio Aguilar
[2018-03-11 14:08] LABS: Absolute Lymphocytes (CBC) 2.2 K/uL (0.7-4.9); Absolute Monocytes 0.5 K/uL (0.1-1.3); Absolute Neutrophil 6.2 K/uL (1.8-8.0); Basophils % 1.3 % (0-1.3); Eosinophils % 1.4 % (0-4.4); Hematocrit 35.5 % (36.0-45.0); MCH 33.6 pg (27.0-35.0); MCV 100.8 fL (80-100); MPV 8.2 fL (7.6-11.3); RBC Red Blood Cell Count 3.52 M/uL (3.86-4.86)
[2018-03-11] MEDS ORDERED: FENTANYL CITR 100 MCG/2 ML ONE (14:12)
[2018-03-11] MEDS ORDERED: LEVALBUTEROL 1.25 MG/3 ML NEB ONE (14:31)
[2018-03-11] MEDS ORDERED: FUROSEMIDE 40 MG/4 ML VIAL ONE ×2 (14:32→15:22)
[2018-03-11 14:47] LABS: Bicarbonate 21 mEq/L (21-31); Glucose Level 156 mg/dL (65-120); Sodium Level 137 mEq/L (135-145)
[2018-03-11 14:54] LABS: ALT/SGPT 11 IU/L (10-60); AST/SGOT 20 IU/L (10-42); Albumin 3.2 g/dL (3.2-5.5); Alkaline Phosphatase 134 IU/L (42-121); BUN Blood Urea Nitrogen 7 mg/dL (6-20); Bilirubin Direct 0.1 mg/dL (0-0.2); Bilirubin Total 0.7 mg/dL (0.3-1.2); Magnesium 1.7 mg/dL (1.8-2.5); Protein, Total 7.3 g/dL (6.0-8.3)
[2018-03-11 15:09] LABS: Protime INR 3.16
--- NOTE | 2018-03-11 15:15 | RAD REPORT ---
EXAM DESCRIPTION: CT - Chest For Pe Angio - 03/11/2018 3:04 pm CLINICAL HISTORY: Chest pain. Chest pain;SOB COMPARISON: Chest For Pe Angio dated 12/31/2017; Chest Single View dated 03/11/2018; Chest Single View dated 03/06/2018 TECHNIQUE: CT angiogram of the pulmonary arteries was performed with MIP. All CT scans are performed using dose optimization technique as appropriate and may include automated exposure control or mA/KV adjustment according to patient size. FINDINGS: No evidence of pulmonary thromboembolism. No acute aortic finding demonstrated, although contrast opacification is somewhat suboptimal. Pacer d evice is noted. Moderate bilateral pulmonary opacities are noted likely representing pulmonary edema. Small moderate bilateral pleural effusions. Atelectasis is suspected in both bases. No concerning bony finding. IMPRESSION: No evidence of pulmonary thromboembolism. Moderate CHF/ volume overload pattern is seen.
--- NOTE | 2018-03-11 15:24 | RAD REPORT ---
EXAM DESCRIPTION: Aryan Single View03/11/2018 2:14 pm CLINICAL HISTORY: Chest pain COMPARISON: March 06, 2018 FINDINGS: Mild bilateral pulmonary opacities are present. Small pleural effusions are seen. The hea rt is normal size. Pacemaker leads in place IMPRESSION: Mild bilateral pulmonary opacities may represent pulmonary edema
[2018-03-11 15:36] LABS: Arterial Blood Carboxyhemoglob 0.9 % (0-1.5); Blood Gas Oxyhemoglobin 96.2 % (94-97)
--- NOTE | 2018-03-11 19:12 | EDPHYS ---
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 - Social history:: Smoking status: unknown. - Ebola Screening: : No symptoms or risks identified at this time. Vital Signs: 13:26 BP 175 / 135; Pulse 102; Resp 36; Pulse Ox 94% on 3 lpm NC; sv 13:46 BP 127 / 104; Pulse 108; Resp 34; Pulse Ox 100% on 3 lpm NC; sv 14:00 BP 131 / 100; Pulse 111; Resp 36; Pulse Ox 92% on 5 lpm NC; sv 14:10 Pain 8/10; sv 14:27 BP 132 / 105; Pulse 116; Resp 42; Pulse Ox 96% on 15% Non-rebreather mask; sv 14:30 Pain 8/10; sv 14:41 BP 124 / 101; Pulse 120; Resp 33; Pulse Ox 98% on 15% Non-rebreather mask; sv 15:00 Pain 8/10; sv 15:01 BP 149 / 93; Pulse 118; Resp 32; Pulse Ox 96% on 15% Non-rebreather mask; sv 15:15 Pulse Ox 88% on Mask: Nebulizer Mask; sv 15:30 BP 106 / 95; Pulse 111; Resp 38; Pulse Ox 99% on 15% Non-rebreather mask; sv 16:00 BP 103 / 82; Pulse 102; Resp 20; Pulse Ox 100% on 15% Non-rebreather mask; sv 17:00 BP 102 / 68; Pulse 101; Resp 24; Pulse Ox 100% on 15% Non-rebreather mask; sv 17:30 BP 106 / 84; Pulse 97; Resp 30; Pulse Ox 100% on 15% Non-rebreather mask; sv 18:00 BP 110 / 75; Pulse 97; Resp 18; Pulse Ox 100% on 15% Non-rebreather mask; sv 18:30 BP 106 / 90; Pulse 101; Resp 22; Pulse Ox 99% on 15% Non-rebreather mask; sv 18:31 Temp 97.6(TE); Weight 66.22 kg (R); Height 5 ft. 3 in. (160.02 cm); sv 18:31 Body Mass Index 25.86 (66.22 kg, 160.02 cm) sv 14:00 Pt placed on 50% venturi mask. O2 sat up to 95%. sv MDM: 19:11 Patient medically screened. [facility] 03/11 13:35 Order name: Basic Metabolic Panel; Complete Time: 15:18 kdr 03/11 13:35 Order name: BNP; Complete Time: 15:18 kdr 03/11 13:35 Order name: CBC with Diff; Complete Time: 14:19 [facility] 03/11 13:35 Order name: LFT's; Complete Time: 15:18 kdr 03/11 13:35 Order name: Magnesium; Complete Time: 15:18 [facility] 03/11 13:35 Order name: PT-INR; Complete Time: 15:18 [facility] 03/11 13:35 Order name: Ptt, Activated; Complete Time: 15:18 [facility] 03/11 13:35 Order name: Troponin (emerg Dept Use Only); Complete Time: 15:18 kdr 03/11 13:35 Order name: XRAY Chest (1 view); Complete Time: 15:35 kdr 03/11 14:20 Order name: CT Chest For PE Angio; Complete Time: 15:18 kdr 03/11 15:19 Order name: ABG kdr 03/11 16:45 Order name: Echo w/ Doppler bd 03/11 17:34 Order name: Urine Dipstick--Ancillary (enter results) em1 03/11 13:35 Order name: EKG; Complete Time: 13:36 kdr 03/11 13:35 Order name: Cardiac monitoring; Complete Time: 15:31 kdr 03/11 15:31 Order name: EKG; Complete Time: 15:31 sv 03/11 13:35 Order name: EKG - Nurse/Tech; Complete Time: 15:30 kdr 03/11 13:35 Order name: IV Saline Lock; Complete Time: 15:31 kdr 03/11 13:35 Order name: Labs collected and sent; Complete Time: 15:31 kdr 03/11 13:35 Order name: O2 Per Protocol; Complete Time: 15:31 kdr 03/11 13:35 Order name: O2 Sat Monitoring; Complete Time: 15:30 kdr 03/11 13:35 Order name: Urine Dipstick-Ancillary (obtain specimen); Complete Time: 17:29 kdr 03/11 15:31 Order name: EKG - Nurse/Tech; Complete Time: 17:28 sv Administered Medications: 13:50 Drug: Zofran 4 mg Route: IVP; Site: right antecubital; sv 14:00 Follow up: Response: No adverse reaction sv 13:50 Drug: NS 0.9% 500 ml Route: IV; Rate: bolus; Site: right antecubital; sv 14:20 Follow up: Response: No adverse reaction; IV Status: Completed infusion; IV Intake: sv 500ml 13:52 Drug: morphine 5 mg Route: IVP; Site: right antecubital; sv 14:00 Follow up: Response: No adverse reaction sv 14:00 Drug: morphine 5 mg Route: IVP; Site: right antecubital; sv 14:10 Follow up: Pain 8/10 Adult; Response: No adverse reaction sv 14:14 Drug: Aspirin Chewable Tablet 324 mg Route: PO; sv 14:30 Follow up: Response: No adverse reaction sv 14:14 Drug: fentaNYL (PF) 25 mcg Route: IVP; Site: right antecubital; sv 14:30 Follow up: Pain 8/10 Adult; Response: No adverse reaction sv 14:50 Drug: fentaNYL (PF) 25 mcg Route: IVP; Site: left antecubital; sv 15:00 Follow up: Pain 8/10 Adult; Response: No adverse reaction sv 14:52 Drug: Lasix 40 mg Route: IVP; Site: left antecubital; sv 15:27 Follow up: Response: No adverse reaction sv 15:09 Drug: Xopenex (3) 1.25 mg Route: Inhalation; sv 15:15 Follow up: Pulse Ox 88% Mask: Nebulizer Mask; Response: No adverse reaction; Pt sv switched back to 100% NRB. Informed Dr Freitas of the pt's O2 sat of 88% during nebulizer treatment. Pt up to 96%. 15:20 Drug: fentaNYL (PF) 25 mcg Route: IVP; Site: right forearm; sv 15:30 Follow up: Response: No adverse reaction sv 15:26 Drug: Lasix 40 mg Route: IVP; Site: right forearm; sv 15:30 Follow up: Response: No adverse reaction sv 17:45 Drug: fentaNYL (PF) 25 mcg Route: IVP; Site: right forearm; sv 18:00 Follow up: Response: No adverse reaction sv 17:56 CANCELLED (not needed at this time): Lopressor 5 mg IVP every 5 minutes; Hold for SBP < sv 100 or HR < 60. x3 Disposition: 14:49 Critical Care:. kdr Disposition: 03/11/18 19:11 Transfer ordered to [facility]. Diagnosis are Unspecified combined systolic (congestive) and diastolic (congestive) heart failure, Chest pain, unspecified, ACS. - Reason for transfer: Higher level of care. - Accepting physician is [facility]/Cardiolgy. - Condition is Serious. - Problem is an acute exacerbation. - Symptoms have improved. Critical care time excluding procedures: 14:49 Critical care time: Bedside Care: 45 minutes, Consultation: 15 minutes, Family kdr Intervention: 10 minutes. 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 She states she had an CT last week and had a stent placed. Her pain today is similar to the pain she had at that time. . Addendum: ROS: Const: No fever, chills or weight loss Eyes: no visual changes or c/o, Neck: no pain or injury, CV: no palpitations - she had chest pain 45 minutes WHEEL BUFFER Resp: no SOB, cough or congestion, Abd: no n/v/d or pain, Back: no pain or injury, : no pain or bleeding, MS/Ext: no pain, injury, swelling, tingling, Skin: no lacerations, pain, injury, skin turgor good, Neuro: CN grossly intact and no other deficits, Psych: Appropriate for age, Allergy/Immunology: no rashes or other s/s, Endo: no evidence of polyuria, polydipsia, temperature control or other s/s . Addendum: Exam: Const: WDWN WF in mild distress, Head/Face: no injury, pain or deformity, Eyes: PERRLA, ENT: no pain, injury or bleeding, Neck: no pain, injury or deformity, full ROM, Chest/Axilla: No pain, injury or deformity, CV: no rubs, gallops, murmurs, regular rate, Resp: CTAB, regular rate, Abd/GI: soft, NT, BS present in all quads and normal, Back: no injury or deformity, full ROM, MS/Extremity: no injury or deformity, FROM, distal pulses good and equal, Skin: no rashes, ecchymosis skin turgor good, Neuro: CN grossly intact, no other neuro deficits, Psych: appropriate for age, no SI/HI, no depression . Addendum: MDM (Transfer) All VS and nursing notes reviewed. The patient and/or family was counseled on the results and need for transfer. The patient was transferred in stable condition. They were happy with the care they received and the plan for transfer for further evaluation and treatment. . Signatures: Dispatcher [employer] [facility] Julianne Horn RN RN Colin Freitas MD MD [facility] Anuradha Talley RN RN ss Corrections: (The following items were deleted from the chart) 03/11 14:26 14:26 CREATININE, SERUM+C.LAB.BRZ ordered. EDWV EDMS 17:56 13:55 Lopressor 5 mg IVP every 5 minutes; Hold for SBP < 100 or HR < 60. x3 ordered. sv 17:56 17:56 Lopressor 5 mg IVP every 5 minutes; Hold for SBP < 100 or HR < 60. x3 ordered. sv sv 19:26 19:11 03/11/2018 19:11 Transfer ordered to [facility]. Diagnosis is sv Unspecified combined systolic (congestive) and diastolic (congestive) heart failure; Chest pain, unspecified; ACS. Reason for transfer: Higher level of care. Accepting physician is [facility] /Cardiolgy. Condition is Serious. Problem is an acute exacerbation. Symptoms have improved. kdr
--- NOTE | 2018-03-11 19:12 | ER ---
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 Pt reports a history of [place] last weekend. Pt states that they placed a stent. Transition of care: patient was not received from another setting of care. Onset of symptoms was March 11, 2018. Risk Assessment: Do you want to hurt yourself or someone else? Patient reports no desire to harm self or others. Initial Sepsis Screen: Does the patient meet any 2 criteria? RR > 20 per min. Does the patient have a suspected source of infection? No. Patient's initial sepsis screen is negative. Care prior to arrival: None. 13:36 Method Of Arrival: Ambulatory ss 13:36 Acuity: RITO 1 ss Historical: - Allergies: 15:33 No Known Allergies; sv - Home Meds: 13:41 warfarin 2 mg Oral tab 1 tab once daily [Active]; Plavix 75 mg Oral tab 1 tab once ss daily [Active]; aspirin 81 mg Oral TbEC 1 tab once daily [Active]; atorvastatin 40 mg Oral tab 1 tab once daily [Active]; amiodarone 200 mg Oral tab 1 tab once daily [Active]; - PMHx: 13:41 Anxiety; blood clots in legs in hips; CHRONIC NAUSEA; Depression; DVT; HEART FAILURE; ss Myocardial infarction; PTSD; pulmonary emboli; UTI; - PSHx: 13:41 pacer; Heart stents; dvt's on bilateral legs; ss - Immunization history:: Adult Immunizations up to date. - Social history:: Smoking status: unknown. - Ebola Screening: : No symptoms or risks identified at this time. Screenin:50 Abuse screen: Denies threats or abuse. Denies injuries from another. Nutritional sv screening: No deficits noted. Tuberculosis screening: No symptoms or risk factors identified. Fall Risk None identified. Assessment: 13:50 General: Appears distressed, uncomfortable, well developed, Behavior is cooperative, sv appropriate for age, anxious. Pain: Complains of pain in chest Pain radiates to right arm and left arm Pain currently is 10 out of 10 on a pain scale. Quality of pain is described as sharp, Pain began 1 hour ago. Is continuous, Alleviated by nothing. Noted to be grimacing, Also complains of diaphoresis, shortness of breath, Current management - is no interventions. Neuro: Level of Consciousness is awake, alert, obeys commands, Oriented to person, place, time, situation, Moves all extremities. Full function Gait is steady, Speech is normal. Cardiovascular: Heart tones S1 S2 present Patient's skin is warm and dry. Pulses are 3+ in right radial artery and left radial artery Rhythm is sinus tachycardia. Respiratory: Reports shortness of breath at rest on exertion labored breathing since an hour ago Airway is patent Respiratory effort is even, labored, Respiratory pattern is symmetrical, tachypnea. GI: No signs and/or symptoms were reported involving the gastrointestinal system. : No signs and/or symptoms were reported regarding the genitourinary system. EENT: No signs and/or symptoms were reported regarding the EENT system. Derm: Skin is clammy, Skin is normal. Musculoskeletal: Range of motion: intact in all extremities. 14:14 Reassessment: Patient and/or family updated on plan of care and expected duration. Pain sv level reassessed. Respiratory: Respiratory effort is even, labored, Respiratory pattern is symmetrical, tachypnea. 14:27 Reassessment: Patient and/or family updated on plan of care and expected duration. Pain sv level reassessed. Respiratory: Reports shortness of breath at rest labored breathing Respiratory effort is even, labored, Respiratory pattern is symmetrical, tachypnea. 14:50 Reassessment: Patient appears in no apparent distress at this time. Patient and/or sv family updated on plan of care and expected duration. Pain level reassessed. Pain: Complains of pain in chest Pain currently is 8 out of 10 on a pain scale. Aggravated by "deep breathing". 15:20 Reassessment: Patient and/or family updated on plan of care and expected duration. Pain sv level reassessed. Respiratory: Respiratory effort is even, labored, Respiratory pattern is symmetrical, tachypnea. 16:00 Reassessment: Patient and/or family updated on plan of care and expected duration. Pain sv level reassessed. Neuro: Level of Consciousness is awake, alert, obeys commands, Oriented to person, place, time, situation. Respiratory: Respiratory effort is even, unlabored, Respiratory pattern is symmetrical, tachypnea. 17:45 Reassessment: Patient and/or family updated on plan of care and expected duration. Pain sv level reassessed. Respiratory: Reports SOB has improved and is only now when she takes a deep breath. Airway is patent Respiratory effort is even, unlabored, Respiratory pattern is symmetrical, tachypnea. 18:05 Reassessment: Patient appears in no apparent distress at this time. Patient and/or sv family updated on plan of care and expected duration. Pain level reassessed. Patient is alert, oriented x 3, equal unlabored respirations, skin warm/dry/pink. Patient states feeling better. Patient states symptoms have improved. 18:49 Reassessment: Patient appears in no apparent distress at this time. Patient and/or sv family updated on plan of care and expected duration. Pain level reassessed. Patient is alert, oriented x 3, equal unlabored respirations, skin warm/dry/pink. Report given to [facility]. Vital Signs: 13:26 BP 175 / 135; Pulse 102; Resp 36; Pulse Ox 94% on 3 lpm NC; sv 13:46 BP 127 / 104; Pulse 108; Resp 34; Pulse Ox 100% on 3 lpm NC; sv 14:00 BP 131 / 100; Pulse 111; Resp 36; Pulse Ox 92% on 5 lpm NC; sv 14:10 Pain 8/10; sv 14:27 BP 132 / 105; Pulse 116; Resp 42; Pulse Ox 96% on 15% Non-rebreather mask; sv 14:30 Pain 8/10; sv 14:41 BP 124 / 101; Pulse 120; Resp 33; Pulse Ox 98% on 15% Non-rebreather mask; sv 15:00 Pain 8/10; sv 15:01 BP 149 / 93; Pulse 118; Resp 32; Pulse Ox 96% on 15% Non-rebreather mask; sv 15:15 Pulse Ox 88% on Mask: Nebulizer Mask; sv 15:30 BP 106 / 95; Pulse 111; Resp 38; Pulse Ox 99% on 15% Non-rebreather mask; sv 16:00 BP 103 / 82; Pulse 102; Resp 20; Pulse Ox 100% on 15% Non-rebreather mask; sv 17:00 BP 102 / 68; Pulse 101; Resp 24; Pulse Ox 100% on 15% Non-rebreather mask; sv 17:30 BP 106 / 84; Pulse 97; Resp 30; Pulse Ox 100% on 15% Non-rebreather mask; sv 18:00 BP 110 / 75; Pulse 97; Resp 18; Pulse Ox 100% on 15% Non-rebreather mask; sv 18:30 BP 106 / 90; Pulse 101; Resp 22; Pulse Ox 99% on 15% Non-rebreather mask; sv 18:31 Temp 97.6(TE); Weight 66.22 kg (R); Height 5 ft. 3 in. (160.02 cm); sv 18:31 Body Mass Index 25.86 (66.22 kg, 160.02 cm) sv 14:00 Pt placed on 50% venturi mask. O2 sat up to 95%. sv ED Course: 13:27 Patient arrived in ED. sb2 13:27 Bert Bone MD is Private Physician. sb2 13:34 Colin Freitas MD is Attending Physician. kdr 13:38 Triage completed. ss 13:40 EKG done, by test lab technician. reviewed by Colin Freitas MD. at1 13:50 Inserted saline lock: 22 gauge in right antecubital area, using aseptic technique. sv ,using aseptic technique. done by foundry technician. 13:50 Oxygen administration via nasal cannula \\T\\ 2L/min. sv 13:50 Patient has correct armband on for positive identification. Bed in low position. Call sv light in reach. Side rails up X2. Adult w/ patient. monitoring and evaluation advisor on. Pulse ox on. NIBP on. Head of bed elevated. 13:50 Arm band placed on right wrist. sv 13:54 Julianne Horn, SYDNI is Primary Nurse. sv 14:03 X-ray completed. Portable x-ray completed in exam room. Patient tolerated procedure jb2 well. 14:12 XRAY Chest (1 view) In Process Unspecified. EDMS 14:15 Initial lab(s) drawn, by me, sent to lab. Inserted saline lock: 22 gauge in left sv antecubital area, using aseptic technique. Blood collected. 14:45 Radiology exam delayed due to PT GETTING MEDS AND A YEUNG AT THIS TIME, NURSE TO CALL jj2 WHEN READY. 14:45 Yeung cath inserted, using sterile technique, 16 Fr., by me, balloon inflated, to sv gravity drainage, returned clear yellow urine. 14:45 IV discontinued, intact, bleeding controlled, Pressure dressing applied, to left AC, sv d/t infiltration. 14:50 Missed attempt(s): 22 gauge in right forearm. Bleeding controlled, band aid applied, sv catheter tip intact. 14:52 Missed attempt(s): 22 gauge in left forearm. done by Ro foundry technician. Bleeding sv controlled, band aid applied, catheter tip intact. 15:00 Inserted saline lock: 22 gauge in right forearm, using aseptic technique. Blood sv collected. Flushed right forearm with 5 ml normal saline. 15:04 CT Chest For PE Angio In Process Unspecified. EDMS 15:45 EKG done, by test lab technician. reviewed by Colin Freitas MD. sm3 16:16 attempted transfer to [facility], they are currently have no beds. bd 18:50 No provider procedures requiring assistance completed. sv Administered Medications: 13:50 Drug: Zofran 4 mg Route: IVP; Site: right antecubital; sv 14:00 Follow up: Response: No adverse reaction sv 13:50 Drug: NS 0.9% 500 ml Route: IV; Rate: bolus; Site: right antecubital; sv 14:20 Follow up: Response: No adverse reaction; IV Status: Completed infusion; IV Intake: sv 500ml 13:52 Drug: morphine 5 mg Route: IVP; Site: right antecubital; sv 14:00 Follow up: Response: No adverse reaction sv 14:00 Drug: morphine 5 mg Route: IVP; Site: right antecubital; sv 14:10 Follow up: Pain 8/10 Adult; Response: No adverse reaction sv 14:14 Drug: Aspirin Chewable Tablet 324 mg Route: PO; sv 14:30 Follow up: Response: No adverse reaction sv 14:14 Drug: fentaNYL (PF) 25 mcg Route: IVP; Site: right antecubital; sv 14:30 Follow up: Pain 8/10 Adult; Response: No adverse reaction sv 14:50 Drug: fentaNYL (PF) 25 mcg Route: IVP; Site: left antecubital; sv 15:00 Follow up: Pain 8/10 Adult; Response: No adverse reaction sv 14:52 Drug: Lasix 40 mg Route: IVP; Site: left antecubital; sv 15:27 Follow up: Response: No adverse reaction sv 15:09 Drug: Xopenex (3) 1.25 mg Route: Inhalation; sv 15:15 Follow up: Pulse Ox 88% Mask: Nebulizer Mask; Response: No adverse reaction; Pt sv switched back to 100% NRB. Informed Dr Freitas of the pt's O2 sat of 88% during nebulizer treatment. Pt up to 96%. 15:20 Drug: fentaNYL (PF) 25 mcg Route: IVP; Site: right forearm; sv 15:30 Follow up: Response: No adverse reaction sv 15:26 Drug: Lasix 40 mg Route: IVP; Site: right forearm; sv 15:30 Follow up: Response: No adverse reaction sv 17:45 Drug: fentaNYL (PF) 25 mcg Route: IVP; Site: right forearm; sv 18:00 Follow up: Response: No adverse reaction sv 17:56 CANCELLED (not needed at this time): Lopressor 5 mg IVP every 5 minutes; Hold for SBP < sv 100 or HR < 60. x3 Intake: 14:20 IV: 500ml; Total: 500ml. sv Output: 18:50 Urine: 600ml (Yeung); Total: 600ml. sv Outcome: 18:38 Transferred by helicopter to [facility], Transfer form completed. sv X-rays sent w/ patient. Note: Report called to Cornelia TROY at [facility]. 18:38 Condition: stable 18:38 Instructed on the need for transfer. 19:00 Patient left the ED. sv 19:11 ER care complete, transfer ordered by . kdr Signatures: Dispatcher [employer] EDMS Glenda Edge Stephanie RN Colin Gregorio MD MD kdr Buechter, Jesse jb2 Jaramillo, Justin jj2 Jones, Susan sj Smirch, Shelby, RN RN ss Matilde meredith, carcass splitter EKG Tat1 Velma Yan sb2 Stella Garcia sm3 Corrections: (The following items were deleted from the chart) 14:45 14:[address] via stretcher. sj jj2 18:50 18:31 66.22 kg Reported; sv sv 20:00 19:26 Patient left the ED. sv sv
[2018-03-11 19:18] LABS: Urine Blood NEGATIVE (NEG); Urine Glucose NEGATIVE (NEG); Urine Protein NEGATIVE (NEG); Urine Specific Gravity <1.005 (1.005-1.030); Urine pH 5.5 (5.0-7.0)
[2018-03-11 20:06] VITALS: BP 106/90; O2SAT 99
[2018-03-11 20:07] VITALS: TEMP 97.6
--- NOTE | 2018-03-12 06:15 | EKG ---
Test Date: 2018-03-11 Test Time: 15:39:04 [employer] Machine Tender: NAJMA MEASUREMENT RESULTS: Intervals: Rate: 111 DC: 152 QRSD: 92 QT: 342 QTc: 465 [place]: P: 70 DC: 152 QRS: -64 T: 79 INTERPRETIVE STATEMENTS: Sinus tachycardia Low voltage QRS Left anterior fascicular block Anterolateral infarct, age undetermined Abnormal ECG Compared to ECG 03/11/2018 13:27:31 Left anterior fascicular block now present Myocardial infarct finding still present Electronically Signed On 03-12-18 06:15:18 CDT by Heraclio Aguilar
--- NOTE | 2018-03-14 07:37 | ECHO ---
HEIGHT: 5 ft 3 in WEIGHT: 146 lb 0 oz DATE OF STUDY: 03/11/[address]: Colin Freitas MD 2-DIMENSIONAL: YES M.MODE: YES DOPPLER: YES COLOR FLOW: YES TDS: NO PORTABLE: NO DEFINITY: NO BUBBLE STUDY: NO DIAGNOSIS: SHORTNESS OF BREATH CARDIAC HISTORY: CATHERIZATION: YES SURGERY: NO PROSTHETIC VALVE: NO PACEMAKER: YES MEASUREMENTS (cm) DIASTOLIC (NORMALS) SYSTOLIC (NORMALS) IVSd 0.8 (0.6-1.2) LA Diam 3.7 (1.9-4.0) LVEF 20-25% LVIDd 5.3 (3.5-5.7) LVIDs 4.6 (2.0-3.5) %FS 12% LVPWd 0.8 (0.6-1.2) Ao Diam 2.5 (2.0-3.7) 2 DIMENSIONAL ASSESSMENT: RIGHT ATRIUM: DILATED LEFT ATRIUM: DILATED RIGHT VENTRICLE: PACEMAKER CATHETER LEFT VENTRICLE: NORMAL TRICUSPID VALVE: NORMAL MITRAL VALVE: NORMAL PULMONIC VALVE: NORMAL AORTIC VALVE: NORMAL PERICARDIAL EFFUSION: NONE AORTIC ROOT: NORMAL LEFT VENTRICULAR WALL MOTION: SEPTAL ANTERIOR, LATERAL, APICAL AKINESIS. DOPPLER/COLOR FLOW: MILD MITRAL REGURGITATION. COMMENTS: DEPRESSED LEFT VENTRICULAR EJECTION FRACTION WITH WALL MOTION ABNORMALITY. PACEMAKER CATHETER IN RIGHT VENTRICLE. DILATED LEFT AND RIGHT ATRIUM. MILD MITRAL REGURGITATION. TECHNOLOGIST: MILLIE SHIRLEY
== END 2018-03-11 19:26 | disposition short-term general hospital (02) ==
LOC: ER 13:25
DX: I50.40 Unspecified combined systolic (congestive) and diastolic (congestive) heart failure (principal); I24.9 Acute ischemic heart disease, unspecified; I25.2 Old myocardial infarction; F32.9 Major depressive disorder, single episode, unspecified; F41.9 Anxiety disorder, unspecified; Z95.818 Presence of other cardiac implants and grafts; Z79.01 Long term (current) use of anticoagulants; Z79.82 Long term (current) use of aspirin; Z95.0 Presence of cardiac pacemaker
CPT/HCPCS: 36415; 51702; 71045; 71275; 80048; 80076; 81003; 82805; 83735; 83880; 84484; 85025; 85610; 85730; 93005; 93306; 99291; 99292; J2405; J3010; Q9967

== ENCOUNTER 2018-04-05 05:39 | Observation (INO) | payer OTHER ==
--- OUTSIDE RECORDS SUMMARY | 2018-04-05 05:42 | XMS REPORT | Clinical Summary ---
:1980 Author Organization [facility] Address [address] [place] [address] Phone Care Team Providers Name Role Phone Unavailable Primary Care Provider Unavailable Allergies No Known Allergies Current Medications Prescription Sig. Disp. Refills Start Date End Date Status acetaminophen-codei Take 1 tablet Active ne (TYLENOL #3) by mouth every 300-30 mg per 6 (six) hours tablet as needed for Pain From PPM insertion . warfarin (COUMADIN) Take 2 mg by Active 2 MG tablet mouth daily. clopidogrel Take 75 mg by Active (PLAVIX) 75 mg mouth daily. tablet amiodarone Take 200 mg by Active (PACERONE) 200 MG mouth daily. tablet levothyroxine Take 100 mcg by Active (SYNTHROID, mouth daily. LEVOTHROID) 100 MCG tablet fLUoxetine (PROZAC) Take 1 capsule 90 capsule 0 03/18/2018 Active 10 MG capsule (10 mg total) 9 by mouth nightly. folic acid Take 1 tablet 90 tablet 0 03/19/2018 Active (FOLVITE) 1 MG (1 mg total) by 8 tablet mouth daily for 90 days. furosemide (LASIX) Take 1 tablet 20 tablet 0 03/19/2018 Active 20 MG tablet (20 mg total) 8 by mouth daily for 90 days. neomycin-bacitracnZ Apply 1 packet 30 packet 0 03/18/2018 Active n-polymyxnB topically 2 (NEOSPORIN) (two) times 3.5-400-5,000 daily. rh-mirm-wcvp OiPk packet atorvastatin Take 1 tablet 90 tablet 0 03/18/2018 Active (LIPITOR) 80 MG (80 mg total) tablet by mouth daily. gabapentin Take by mouth 3 Discontinued (NEURONTIN) 100 MG (three) times 8 capsule daily. warfarin (COUMADIN) Take 2 mg by Discontinued 3 MG tablet mouth daily . 8 HYDROcodone-acetami Take 1 tablet Discontinued nophen (NORCO by mouth every 8 5-325) 5-325 mg per 6 (six) hours tablet as needed for Pain. aspirin 81 MG EC Take 81 mg by Discontinued tablet mouth daily. 8 atorvastatin Take 40 mg by Discontinued (LIPITOR) 40 MG mouth daily. 8 tablet metoprolol Take 6.125 mg Discontinued (LOPRESSOR) 25 MG by mouth every 8 tablet 12 (twelve) hours. atorvastatin Take 1 tablet 90 tablet 0 03/18/2018 Discontinued (LIPITOR) 80 MG (80 mg total) 8 tablet by mouth daily. fLUoxetine (PROZAC) Take 1 capsule 90 capsule 0 03/18/2018 Discontinued 10 MG capsule (10 mg total) 8 by mouth nightly. folic acid Take 1 tablet 90 tablet 0 03/19/2018 Discontinued (FOLVITE) 1 MG (1 mg total) by 8 tablet mouth daily for 90 days. furosemide (LASIX) Take 1 tablet 20 tablet 0 03/19/2018 Discontinued 20 MG tablet (20 mg total) 8 by mouth daily for 90 days. neomycin-bacitracnZ Apply 1 packet 30 packet 0 03/18/2018 Discontinued n-polymyxnB topically 2 8 (NEOSPORIN) (two) times 3.5-400-5,000 daily. uk-yrma-uijc OiPk packet Active Problems Problem Noted Date Moderate protein-calorie malnutrition (HCC) 03/14/2018 Acute hypoxemic respiratory failure (HCC) 03/14/2018 Paroxysmal atrial fibrillation (HCC) 03/14/2018 Acute systolic heart failure (HCC) 03/14/2018 Chest pain 03/11/2018 Ulcerative proctitis with complication (HCC) 05/15/2016 Concern for pancreatitis, low amylase/lipase. Peripanc fluid on CT, US neg for stones. H/o UC, multiple DVTs here with pancreatitis, improving Deep vein thrombosis (DVT) of iliac vein of both lower extremities (HCC) 05/15 Chronic anticoagulation 05/15/2016 Ulcerative colitis (HCC) 05/15/2016 Essential hypertension 05/15/2016 Encounters Date Type Specialty Care Team Description 03/17/2018 Documentation Transplant Ashely Pearson 03/16/2018 Abstract Transplant Deo Vora 03/15/2018 Procedure Pass 03/15/2018 Surgery Asher Saavedra MD R CATH 03/14/2018 Procedure Pass 03/12/2018 Procedure Pass 03/12/2018 Surgery Asher Saavedra MD L CATH & PCI 03/11/2018 - Hospital Encounter Cardiology Fabi Rock, Unstable angina 03/18/2018 Dale Salas ([facility]);Chronic deep MD Heraclio vein thrombosis Viola Foote (DVT) of iliac vein MD Alyse of both lower [place] joana Salcido MD ([facility]);Essential hypertension;Ulcera tive pancolitis without complication ([facility]);Chronic anticoagulation;Car diogenic shock ([facility]);NSTEMI (non-ST elevated myocardial infarction) ([facility]);Percutaneous transluminal coronary angioplasty (PTCA) within last 14 to 24 months;Acute hypoxemic respiratory failure ([facility]) 03/11/2018 Orders Only General Internal Medicine after 04/04/2017 Family History Medical History Relation Name Comments Alcohol abuse Father Deep vein thrombosis Maternal Grandfather Stroke Maternal Grandfather Heart attack Maternal Grandmother Diabetes Mother Heart attack Mother Hyperlipidemia Mother Hypertension Mother Stroke Mother Relation Name Status Comments Father Maternal Grandfather Maternal Grandmother Mother Social History Tobacco Use Types Packs/Day Years Used Date Former Smoker Cigarettes 1 15 Quit: 02/16/2018 Smokeless Tobacco: Never Used Alcohol Use Drinks/Week oz/Week Comments No 24oz 3/night or every other night Sex Assigned at Date Recorded Not on file Last Filed Vital Signs Vital Sign Reading Time Taken Blood Pressure 80/47 03/18/2018 12:30 PM CDT Pulse 96 03/18/2018 12:30 PM CDT Temperature 36.4 C (97.5 F) 03/18/2018 12:30 PM CDT Respiratory Rate 18 03/18/2018 12:30 PM CDT Oxygen Saturation 96% 03/18/2018 12:30 PM CDT Inhaled Oxygen Concentration - - Weight 64.2 kg (141 lb 8.6 oz) 03/17/2018 6:00 AM CDT Height 160 cm (5' 3") 03/11/2018 7:30 PM CDT Body Mass Index 25.07 03/17/2018 6:00 AM CDT Plan of Treatment Not on file Implants Implanted Type Area Ct Scan Technician Device Expiration Model / Identifier Date Serial / Lot Promus Premier Stents-C N/A: [place] 10/24/2018 [id number] / Implanted: Qty: 1 on 03/12/2018 by Asher Saavedra MD [facility] Coronary [employer] / [id number] Procedures Procedure Name Priority Date/Time Associated Diagnosis Comments R CATH 03/15/2018 7:08 PM CDT Disease of cardiovascular system Case Notes [id number] 1719mGy L CATH & PCI 03/12/2018 8:00 AM CDT Coronary artery disease with angina pectoris, unspecified vessel or lesion type, unspecified whether nikolski or transplanted heart (HCC) after 04/04/2017 Results CARDIAC CATH REPORT - SCAN (03/22/2018 4:22 PM)Only the most recent of3 resultswithin the time period is included.ARRYTHMIA IMPLANT REPORT - SCAN (03/21 12:12 PM)RHYTHM STRIP - SCAN (03/21/2018 12:12 PM)VASCULAR DIAGRAM -SCAN ( 03/21/2018 12:12 PM)Magnesium (03/18/2018 5:16 PM)Only the most recent of15 resultswithin the time period is included. Component Value Ref Range Magnesium 2.0 1.6 - 2.6 mg/dL Specimen Performing Laboratory Blood - Arm, Left [facility] [address] [address] Basic Metabolic Panel (03/18/2018 5:16 PM)Only the most recent of15 resultswithin the time period is included. Component Value Ref Range Sodium 139 136 - 145 meq/L Potassium 4.0 3.5 - 5.1 meq/L Chloride 101 98 - 107 meq/L CO2 28 22 - 29 meq/L BUN 10 7 - 21 mg/dL Creatinine 0.73 0.57 - 1.25 mg/dL Glucose 115 (H) 70 - 105 mg/dL Calcium 9.6 8.4 - 10.2 mg/dL EGFR 90Comment: ESTIMATED GFR IS NOT ACCURATE mL/min/1.73 sq m CREATININE CLEARANCE IN PREDICTING GLOMERULAR FILTRATION RATE. ESTIMATED GFR IS NOT APPLICABLE FOR DIALYSIS PATIENTS. Specimen Performing Laboratory Blood - Arm, Left [address] [address] CBC with platelet count + automated diff (03/18/2018 5:36 AM)Only the most recent of8 resultswithin the time period is included. Component Value Ref Range WBC 6.7 3.5 - 10.5 K/L RBC 2.38 (L) 3.93 - 5.22 M/L Hemoglobin 7.6 (L) 11.2 - 15.7 GM/DL Hematocrit 23.2 (L) 34.1 - 44.9 % MCV 97.5 (H) 79.4 - 94.8 fL MCH 31.9 25.6 - 32.2 pg MCHC 32.8 32.2 - 35.5 GM/DL RDW 14.1 11.7 - 14.4 % Platelets 294 150 - 450 K/CU MM MPV 10.1 9.4 - 12.3 fL nRBC 0 0 - 0 /100 WBC % Neutros 62 % % Lymphs 23 % % Monos 7 % % Eos 6 % % Baso 2 % # Neutros 4.11 1.56 - 6.13 K/L # Lymphs 1.51 1.18 - 3.74 K/L # Monos 0.49 (H) 0.24 - 0.36 K/L # Eos 0.43 (H) 0.04 - 0.36 K/L # Baso 0.10 (H) 0.01 - 0.08 K/L Immature Granulocytes-Relative 0 0 - 1 % Specimen Performing Laboratory Blood [address] [address] Prothrombin time/INR (03/18/2018 5:36 AM)Only the most recent of8 resultswithin the time period is included. Component Value Ref Range Protime 24.2 (H) 11.7 - 14.7 seconds INR 2.2 <=5.9 Specimen Performing Laboratory Blood [address] [address] Narrative RECOMMENDED COUMADIN/WARFARIN INR THERAPY RANGES STANDARD DOSE: 2.0 - 3.0 Includes: PROPHYLAXIS for venous thrombosis, systemic embolization; TREATMENT for venous thrombosis and/or pulmonary embolus. HIGH RISK: Target INR is 2.5-3.5 for patients with mechanical heart valves. CBC with platelet count + automated diff (03/18/2018 5:36 AM)Only the most recent of8 resultswithin the time period is included. Specimen Performing Laboratory Blood Narrative The following orders were created for panel order CBC with platelet count + automated diff. Procedure Abnormality Status --------- ------ CBC with platelet count ...[[id number]]AbnormalFinal result Please view results for these tests on the individual orders. Screen, urine (03/17/2018 4:27 PM)Only the most recent of2 resultswithin the time period is included. Component Value Ref Range Preg Test, Ur Negative Specimen Performing Laboratory Urine - Urine, Voided [address] [address] Fibrin soluble monomer (03/16/2018 4:46 PM) Component Value Ref Range Fibrin Soluble Monomer Negative Specimen Performing Laboratory Blood - Arm, [address] [address] Fibrinogen (03/16/2018 4:46 PM) Component Value Ref Range Fibrinogen 862 (H) 225 - 434 mg/dl Specimen Performing Laboratory Blood - Arm, [address] [address] D-dimer (03/16/2018 4:46 PM) Component Value Ref Range D-Dimer, Quant 2.06 (H) <0.50 MG/L FEU Specimen Performing Laboratory Blood - Arm, [address] [address] Narrative Intended Use: The D-Dimer Assay can be used to aid in the diagnosis of Deep Vein Thrombosis (DVT) and Pulmonary Embolism Disease (PED). In patients with low pre-test probability, various studies concerning STA Liatest D-dimer test have reported that with a cutoff value of 0.50 MG/L FEU, the Negative Predictive Value (NPV) regarding the exclusion of thrombosis is within 95-100% range. Peripheral Blood Smear - Path Review (03/16/2018 1:38 PM) Component Value Ref Range Pathologist Review No circulating blasts. No significantly increased schistocytes. Pathologist: Yovani Oh M.D.(electronic signature) Specimen Performing Laboratory Blood - Line, [address] [address] Vitamin B12 and Folate (03/16/2018 1:38 PM) Component Value Ref Range Vitamin B12 500 213 - 816 pg/mL Folate 3.3 (L) >=7.0 ng/mL Specimen Performing Laboratory Blood - Line, [address] [address] Reticulocyte count (03/16/2018 1:38 PM) Component Value Ref Range % Retic 4.3 (H) 0.5 - 1.7 % Specimen Performing Laboratory Blood - Line, [address] [address] Lactate dehydrogenase (LDH) (03/16/2018 1:38 PM) Component Value Ref Range LDH 475 (H) 125 - 220 U/L Specimen Performing Laboratory Blood - Line, [address] [address] Haptoglobin (03/16/2018 1:38 PM) Component Value Ref Range Haptoglobin 226 14 - 258 mg/dL Specimen Performing Laboratory Blood - Line, [address] [address] Beta-2 glycoprotein antibodies (03/14/2018 4:20 AM) Component Value Ref Range B2 Glcoprotein Ab Profile Refer to individual B2-Glycoprotein IgG, IgM and IgA results. Specimen Performing Laboratory Blood - Central Venous Line [facility] [id number] [place] [address] Cardiolipin Antibodies, IgG and IgM (03/14/2018 4:20 AM) Component Value Ref Range Anticardiolipin IgG <1.6 <20.0 GPL Anticardiolipin IgM 0.5 <20.0 MPL Specimen Performing Laboratory Blood - Central Venous Line [address] [address] Narrative Anticardiolipin IgG Result Interpretation: <20.0 GPL Normal >/=20.0 GPL Positive Anticardiolipin IgM Result Interpretation: <20.0 MPL Normal >/=20.0 MPL Positive ECHOCARDIOGRAM REPORT - SCAN (03/13/2018 4:20 PM)2D Echo W/Doppler(CW/PW/Color ) (03/13/2018 11:33 AM) Component Value Ref Range Ejection Fraction Specimen Performing Laboratory [facility] TARIQ CPACS Narrative Transthoracic Echocardiography Report (TTE) Demographics Patient NameYARI SMITH Date of Study03/13/2018 BRANDON Female Visit [id number] Unknown Room Number 6215 Number Date of 1980RefMell Saavedra MD Physician Age 37 year(s)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 Clinical History HGB 10.6 HCT 32.8 % CP, DVT, HTN, NICMP H/O IN ACID H/O PCI Contrast Medium: Definity. Amount - 2 ml Height: 63 inches Weight: 62.6 kg (138 lbs) BSA: 1.65 m^2 BMI: 24.45 kg/m^2 HR: 106 bpm BP: 115/85 mmHg Summary Sinus tachycardia during the exam. The left ventricle is chamber size (by vol index) is severely enlarged (female - LVED vol >80ml/m2). Normal LV wall thickness. The following segment(s) appear akinetic: apex, all mid-distal segments, anteroseptum . [place], mid-distal anteroseptum are heavily trabeculated. Global LV systolic function severely reduced . LVEF by Saavedra's method of disk assessment is severely reduced (<20%) . The LVEF was measured using Saavedra's bi-plane method of disk . LV endocardium is adequately visualized with IV ultrasound enhancing agent. Low (cardiac index <2 L/min/m2) cardiac output state at rest is noted. Normal diastolic function. Unable to estimate peak systolic PA pressure; inadequate TR velocity signal. The estimated RA pressure by IVC dynamics 0-5mmHg . RV chamber size is normal . Previous Study No prior exam available for comparison. Signature Findings Rhythm/BPSinus tachycardia during the exam. Left Ventricle The left ventricle is chamber size (by vol index) is severely enlarged (female - LVED vol >80ml/m2). Normal LV wall thickness. The following segment(s) appear akinetic: apex, all mid- distal segments, anteroseptum . [place], mid-distal anteroseptum are heavily trabeculated. Global LV systolic function severely reduced . LVEF by Saavedra's method of disk assessment is severely reduced (<20%) . The LVEF was measured using Saavedra's bi -plane method of disk . LV endocardium is adequately visualized with IV ultrasound enhancing agent. Low (cardiac index <2 L/min/m2) cardiac output state at rest is noted. Normal diastolic function. Left AtriumLA size is mildly enlarged (35-41 ml/m2) . Right VentricleRV pacing wire is visualized . RV chamber size is normal . Global RV systolic function is depressed . Right Atrium RA cavity size is normal . RA pacing wire is visualized . Aortic Valve Normal AoV structure and function. Mitral Valve Normal MV structure and function. Trace mitral regurgitation. Tricuspid ValveTV structure is normal. A trace of tricuspid regurgitation. Unable to estimate peak systolic PA pressure; inadequate TR velocity signal. Pulmonic Valve Normal PV structure and function. AortaAortic root size (SInus of Valsalva diameter) is normal . PericardiumNo significant pericardial effusion is visualized. IVC/SVC/PA/PV/PleuralThe right upper pulmonary vein (RUPV) is normal . The estimated RA pressure by IVC dynamics 0-5mmHg . Chambers/Structures Left Atrium LA Volume: 58.2 mlLA Area: 19.55 cm^2 LA Vol. Index: 35 ml/m^2 Left Ventricle LV Septum Diastolic: 0.68 cm LV PW Diastolic: 0.71 cm LVEDV Saavedra's:149.51 ml LVESV Saavedra's:123.31 ml LVEF Saavedra's: 17.5 % LVEDVI: 91 ml/m^2 LVOT Diameter: 1.85 cmLVESVI: 75 ml/m^2 Right Ventricle TAPSE: 0.74 cm Aorta Ao Root S of Estela.: 2.46 cm Doppler/Quantitative Measurements Mitral Valve MV Peak E-Wave: 0.75 m/sMV Peak A-Wave: 0.56 m/s E/ A Ratio: 1.35 Peak Gradient: 2.26 mmHg Deceleration Time: 96.5 msec MV Leonel. Peak: Tissue Doppler E' Lateral Velocity: 0.1 m/sE/E': 7.55 LVOT Peak Velocity: 0.68 m/s Peak Gradient: 1.87 mmHg Mean Velocity: 0.46 m/s Mean Gradient: 0.97 mmHg LVOT Diameter: 1.85 cmLVOT VTI: 9.55 cm LVOT Area: 2.69 cm^2LVOT SV:25.66 ml LVOT CO: 2.72 l/min LVOT CI: 1.65 l/min/m^2 Tricuspid Valve TR Velocity: 2.19 m/s TR Gradient: 19.21 mmHg Procedure Note Interface, External Ris In - 03/13/2018 3:32 PM CDT Transthoracic Echocardiography Report (TTE) Demographics Patient Name YARI SMITH Date of Study 03/13/2018 BRANDON Gender Female Visit Number [id number] Race Unknown Room Number 6215 Number Date of 1980 Referring Asher Saavedra MD Physician 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 Clinical History HGB 10.6 HCT 32.8 % CP, DVT, HTN, NICMP H/O IN ACID H/O PCI Contrast Medium: Definity. Amount - 2 ml Height: 63 inches Weight: 62.6 kg (138 lbs) BSA: 1.65 m^2 BMI: 24.45 kg/m^2 HR: 106 bpm BP: 115/85 mmHg Summary Sinus tachycardia during the exam. The left ventricle is chamber size (by vol index) is severely enlarged (female - LVED vol >80ml/m2). Normal LV wall thickness. The following segment(s) appear akinetic: apex, all mid-distal segments, anteroseptum . [place], mid-distal anteroseptum are heavily trabeculated. Global LV systolic function severely reduced . LVEF by Saavedra's method of disk assessment is severely reduced (<20%) . The LVEF was measured using Saavedra's bi-plane method of disk . LV endocardium is adequately visualized with IV ultrasound enhancing agent. Low (cardiac index <2 L/min/m2) cardiac output state at rest is noted. Normal diastolic function. Unable to estimate peak systolic PA pressure; inadequate TR velocity signal. The estimated RA pressure by IVC dynamics 0-5mmHg . RV chamber size is normal . Previous Study No prior exam available for comparison. Signature Findings Rhythm/BP Sinus tachycardia during the exam. Left Ventricle The left ventricle is chamber size (by vol index) is severely enlarged (female - LVED vol >80ml/m2). Normal LV wall thickness. The following segment(s) appear akinetic: apex, all mid-distal segments, anteroseptum . [place], mid-distal anteroseptum are heavily trabeculated. Global LV systolic function severely reduced . LVEF by Saavedra's method of disk assessment is severely reduced (<20%) . The LVEF was measured using Saavedra's bi-plane method of disk . LV endocardium is adequately visualized with IV ultrasound enhancing agent. Low (cardiac index <2 L/min/m2) cardiac output state at rest is noted. Normal diastolic function. Left Atrium LA size is mildly enlarged (35-41 ml/m2) . Right Ventricle RV pacing wire is visualized . RV chamber size is normal . Global RV systolic function is depressed . Right Atrium RA cavity size is normal . RA pacing wire is visualized . Aortic Valve Normal AoV structure and function. Mitral Valve Normal MV structure and function. Trace mitral regurgitation. Tricuspid Valve TV structure is normal. A trace of tricuspid regurgitation. Unable to estimate peak systolic PA pressure; inadequate TR velocity signal. Pulmonic Valve Normal PV structure and function. Aorta Aortic root size (SInus of Valsalva diameter) is normal . Pericardium No significant pericardial effusion is visualized. IVC/SVC/PA/PV/Pleural The right upper pulmonary vein (RUPV) is normal . The estimated RA pressure by IVC dynamics 0-5mmHg . Chambers/Structures Left Atrium LA Volume: 58.2 ml LA Area: 19.55 cm^2 LA Vol. Index: 35 ml/m^2 Left Ventricle LV Septum Diastolic: 0.68 cm LV PW Diastolic: 0.71 cm LVEDV Saavedra's:149.51 ml LVESV Saavedra's:123.31 ml LVEF Saavedra's: 17.5 % LVEDVI: 91 ml/m^2 LVOT Diameter: 1.85 cm LVESVI: 75 ml/m^2 Right Ventricle TAPSE: 0.74 cm Aorta Ao Root S of [place].: 2.46 cm Doppler/Quantitative Measurements Mitral Valve MV Peak E-Wave: 0.75 m/s MV Peak A-Wave: 0.56 m/s E/A Ratio: 1.35 Peak Gradient: 2.26 mmHg Deceleration Time: 96.5 msec MV Leonel. Peak: Tissue Doppler E' Lateral Velocity: 0.1 m/s E/E': 7.55 LVOT Peak Velocity: 0.68 m/s Peak Gradient: 1.87 mmHg Mean Velocity: 0.46 m/s Mean Gradient: 0.97 mmHg LVOT Diameter: 1.85 cm LVOT VTI: 9.55 cm LVOT Area: 2.69 cm^2 LVOT SV:25.66 ml LVOT CO: 2.72 l/min LVOT CI: 1.65 l/min/m^2 Tricuspid Valve TR Velocity: 2.19 m/s TR Gradient: 19.21 mmHg XR chest 1 view portable / bedside (03/13/2018 9:45 AM)Only the most recent of3 resultswithin the time period is included. Specimen Performing Laboratory GE RIS Narrative FINAL REPORT TECHNIQUE: Frontal view of the chest. INDICATION: 37-year-old woman after central line placement. COMPARISON: Chest radiograph from earlier same date. FINDINGS: LINES/TUBES: Interval repositioning of a right internal jugular central venous catheter, the tip now projects over the expected region of the right atrium. Unchanged implanted cardiac device with intact lead. LUNGS: The lungs are well inflated and clear. PLEURA: No pneumothorax or significant pleural effusions. HEART AND MEDIASTINUM: The cardiomediastinal silhouette is within normal limits. Coronary stents. SOFT TISSUES AND BONES: Unremarkable. IMPRESSION: Interval repositioning of the right internal jugular central venous catheter, the tip now projects over the expected region of the right atrium. Otherwise, no significant change since chest radiograph from earlier same date. Signed: Marcos Shaffer MD Report Verified Date/Time:03/13/2018 10:21:51 Reading Location: [address] Body Reading Room Procedure Note Interface, External Ris In - 03/13/2018 10:23 AM CDT FINAL REPORT TECHNIQUE: Frontal view of the chest. INDICATION: 37-year-old woman after central line placement. COMPARISON: Chest radiograph from earlier same date. FINDINGS: LINES/TUBES: Interval repositioning of a right internal jugular central venous catheter, the tip now projects over the expected region of the right atrium. Unchanged implanted cardiac device with intact lead. LUNGS: The lungs are well inflated and clear. PLEURA: No pneumothorax or significant pleural effusions. HEART AND MEDIASTINUM: The cardiomediastinal silhouette is within normal limits. Coronary stents. SOFT TISSUES AND BONES: Unremarkable. IMPRESSION: Interval repositioning of the right internal jugular central venous catheter, the tip now projects over the expected region of the right atrium. Otherwise, no significant change since chest radiograph from earlier same date. Signed: Marcos Shaffer MD Report Verified Date/Time: 03/13/2018 10:21:51 Reading Location: [address] Body Reading Room ACTIVATED CLOTTING TIME (03/13/2018 5:32 AM)Only the most recent of9 resultswithin the time period is included. Component Value Ref Range Activated Clotting Time 175Comment: TESTED AT [address] sec [id number] Specimen Performing Laboratory Blood [address] [address] Hemoglobin A1c (03/13/2018 5:32 AM)Only the most recent of2 resultswithin the time period is included. Component Value Ref Range Hemoglobin A1C 4.4 4.3 - 6.1 % Specimen Performing Laboratory Blood - Central Venous Line [address] [address] Lipid panel (03/12/2018 11:04 AM)Only the most recent of2 resultswithin the time period is included. Component Value Ref Range Triglycerides 92Comment: Specimen slightly hemolyzed mg/dL Cholesterol 126Comment: Specimen slightly hemolyzed mg/dL HDL 40 mg/dL LDL Calculated 68 mg/dL Specimen Performing Laboratory Blood - Line, Venous [address] [address] Narrative Triglyceride Reference Range: Low Risk <150 [id number] High Risk 200-499 Very High Risk>=500 Cholesterol Reference Range: Low Risk <200 [id number] High Risk>240 HDL Cholesterol Reference Range: Low Risk >=60 High Risk <40 LDL Cholesterol Reference Range: Optimal<100 Near [id number] [id number] [id number] Very High >=190 TSH/Free T4 If Indicated (03/12/2018 10:13 AM) Component Value Ref Range TSH 2.63 0.35 - 4.94 uIU/mL Specimen Performing Laboratory Blood - Arm, [address] [address] Troponin I (03/12/2018 10:13 AM)Only the most recent of3 resultswithin the time period is included. Component Value Ref Range Troponin I 14.03 (HH) 0.00 - 0.03 ng/mL Specimen Performing Laboratory Blood - Arm, [address] [address] Narrative Troponin I (TnI) levels must be interpreted in the context of the presenting symptoms and the clinical findings. Elevated TnI levels indicate myocardial damage, but are not specific for ischemic heart disease. Elevated TnI levels are seen in patients with other cardiac conditions (including myocarditis and congestive heart failure), and slight TnI elevations occur in patients with other conditions, including sepsis, renal failure, acidosis, acute neurological disease, and persistent tachyarrhythmia. aPTT (03/11/2018 8:40 PM) Component Value Ref Range PTT 39.7 (H) 22.5 - 36.0 seconds Specimen Performing Laboratory Blood - Arm, [facility] [address] [place] [id number] B-type natriuretic peptide (03/11/2018 8:40 PM) Component Value Ref Range BNP 1863 (H) 0 - 100 pg/mL Specimen Performing Laboratory Blood - Arm, [address] [address] ECG 12 lead (03/11/2018 7:45 PM) Specimen Performing Laboratory GE MUSE Narrative Ventricular Rate 101 BPM Atrial Rate 101 BPM P-R Interval 144 ms QRS Duration 82 ms Q-T Interval 392 ms QTC Calculation(Bazett) 508 ms P [place] 63 degrees R [place] 156 degrees T [place] -2 degrees Sinus tachycardia Possible Left atrial enlargement Low voltage QRS Right axis deviation Anterolateral infarct infarct of uncertain age Minimal ST elevation in I, aVL and V2 can indicate recent STEMI Prolonged QT Abnormal ECG No previous ECGs available Confirmed by MD CLEARY YOCHAI ([id number]) on 03/13/2018 5:41:29 AM Procedure Note Interface, External Ris In - 03/13/2018 5:41 AM CDT Ventricular Rate 101 BPM Atrial Rate 101 BPM P-R Interval 144 ms QRS Duration 82 ms Q-T Interval 392 ms QTC Calculation(Bazett) 508 ms P [place] 63 degrees R [place] 156 degrees T [place] -2 degrees Sinus tachycardia Possible Left atrial enlargement Low voltage QRS Right axis deviation Anterolateral infarct infarct of uncertain age Minimal ST elevation in I, aVL and V2 can indicate recent STEMI Prolonged QT Abnormal ECG No previous ECGs available Confirmed by MD CLEARY YOCHAI ([id number]) on 03/13/2018 5:41:29 AM after 04/04/2017
--- OUTSIDE RECORDS SUMMARY | 2018-04-05 05:43 | XMS REPORT ---
:1980 [facility] [address] [place] [address] Care Team Providers Name Role Phone TONY FRANCISCO Unavailable Unavailable Problems This patient has no known problems. Allergies, Adverse Reactions, Alerts This patient has no known allergies or adverse reactions. Medications This patient has no known medications. Results Test Description Test Time Test Comments Text Results Atomic Results Result Comments MAGNESIUM 2018-03-18 18:10:00 Test Item Value Reference Range Comments MAGNESIUM (BEAKER) (test hpso=389) 2.0 mg/dL 1.6-2.6 BASIC METABOLIC [id number] 18:10:00 Test Item Value Reference Range Comments SODIUM (BEAKER) (test 139 meq/L 136-145 vjks=119) POTASSIUM (BEAKER) (test 4.0 meq/L 3.5-5.1 vkqg=955) CHLORIDE (BEAKER) (test 101 meq/L 98-107 dfam=528) CO2 (BEAKER) (test 28 meq/L 22-29 bkmd=534) BLOOD UREA NITROGEN 10 mg/dL 7-21 (BEAKER) (test ztvt=282) CREATININE (BEAKER) (test 0.73 mg/dL 0.57-1.25 xean=878) GLUCOSE RANDOM (BEAKER) 115 mg/dL 70-105 (test agml=748) CALCIUM (BEAKER) (test 9.6 mg/dL 8.4-10.2 uilb=722) EGFR (BEAKER) (test 90 mL/min/1.73 sq m ESTIMATED GFR IS NOT jiie=5876) ACCURATE CREATININE CLEARANCE IN PREDICTING GLOMERULAR FILTRATION RATE. ESTIMATED GFR IS NOT APPLICABLE FOR DIALYSIS PATIENTS. CBC W/PLT COUNT & AUTO [id number] 07:00:00 Test Item Value Reference Range Comments WHITE BLOOD CELL COUNT (BEAKER) (test klmr=528) 6.7 K/ L 3.5-10.5 RED BLOOD CELL COUNT (BEAKER) (test bmoz=430) 2.38 M/ L 3.93-5.22 HEMOGLOBIN (BEAKER) (test djsf=468) 7.6 GM/DL 11.2-15.7 HEMATOCRIT (BEAKER) (test yqob=139) 23.2 % 34.1-44.9 MEAN CORPUSCULAR VOLUME (BEAKER) (test vdlw=757) 97.5 fL 79.4-94.8 MEAN CORPUSCULAR HEMOGLOBIN (BEAKER) (test 31.9 pg 25.6-32.2 bbew=334) MEAN CORPUSCULAR HEMOGLOBIN CONC (BEAKER) (test 32.8 GM/DL 32.2-35.5 mwsa=617) RED CELL DISTRIBUTION WIDTH (BEAKER) (test 14.1 % 11.7-14.4 mtlh=437) PLATELET COUNT (BEAKER) (test qnch=842) 294 K/CU MM 150-450 MEAN PLATELET VOLUME (BEAKER) (test lcap=461) 10.1 fL 9.4-12.3 NUCLEATED RED BLOOD CELLS (BEAKER) (test 0 /100 WBC 0-0 dpnw=347) NEUTROPHILS RELATIVE PERCENT (BEAKER) (test 62 % opiq=220) LYMPHOCYTES RELATIVE PERCENT (BEAKER) (test 23 % cpcu=494) MONOCYTES RELATIVE PERCENT (BEAKER) (test 7 % mpax=116) EOSINOPHILS RELATIVE PERCENT (BEAKER) (test 6 % ojlc=168) BASOPHILS RELATIVE PERCENT (BEAKER) (test 2 % tdmm=526) NEUTROPHILS ABSOLUTE COUNT (BEAKER) (test 4.11 K/ L 1.56-6.13 tkfo=254) LYMPHOCYTES ABSOLUTE COUNT (BEAKER) (test 1.51 K/ L 1.18-3.74 hdri=199) MONOCYTES ABSOLUTE COUNT (BEAKER) (test 0.49 K/ L 0.24-0.36 xabq=653) EOSINOPHILS ABSOLUTE COUNT (BEAKER) (test 0.43 K/ L 0.04-0.36 scgz=008) BASOPHILS ABSOLUTE COUNT (BEAKER) (test 0.10 K/ L 0.01-0.08 lhbq=788) IMMATURE GRANULOCYTES-RELATIVE PERCENT (BEAKER) 0 % 0-1 (test altk=4335) PROTHROMBIN [id number] 06:58:00 Test Item Value Reference Range Comments PROTIME (BEAKER) (test ohho=205) 24.2 seconds 11.7-14.7 INR (BEAKER) (test lkwe=160) 2.2 <=5.9 RECOMMENDED COUMADIN/WARFARIN INR THERAPY RANGESSTANDARD DOSE: 2.0 - 3.0 Includes: PROPHYLAXIS forvenous thrombosis, systemic embolization; TREATMENT for venous thrombosis and/or pulmonary embolus.HIGH RISK: Target INR is 2.5-3.5 for patients with mechanical heart valves.[id number] 06:55:00 Test Item Value Reference Range Comments MAGNESIUM (BEAKER) (test ijtl=494) 2.4 mg/dL 1.6-2.6 BASIC METABOLIC [id number] 06:55:00 Test Item Value Reference Range Comments SODIUM (BEAKER) (test 137 meq/L 136-145 adzq=270) POTASSIUM (BEAKER) (test 3.8 meq/L 3.5-5.1 tkkf=597) CHLORIDE (BEAKER) (test 102 meq/L 98-107 gedc=432) CO2 (BEAKER) (test 27 meq/L 22-29 vere=442) BLOOD UREA NITROGEN 11 mg/dL 7-21 (BEAKER) (test yjax=158) CREATININE (BEAKER) (test 0.61 mg/dL 0.57-1.25 bqzz=795) GLUCOSE RANDOM (BEAKER) 98 mg/dL 70-105 (test pjmz=259) CALCIUM (BEAKER) (test 9.2 mg/dL 8.4-10.2 rsen=892) EGFR (BEAKER) (test 111 mL/min/1.73 sq m ESTIMATED GFR IS NOT jdvi=7086) ACCURATE CREATININE CLEARANCE IN PREDICTING GLOMERULAR FILTRATION RATE. ESTIMATED GFR IS NOT APPLICABLE FOR DIALYSIS PATIENTS. [id number] 17:06:00 Test Item Value Reference Range Comments MAGNESIUM (BEAKER) (test xvdq=251) 1.8 mg/dL 1.6-2.6 BASIC METABOLIC [id number] 17:06:00 Test Item Value Reference Range Comments SODIUM (BEAKER) (test 138 meq/L 136-145 khmr=773) POTASSIUM (BEAKER) (test 4.2 meq/L 3.5-5.1 lqzd=975) CHLORIDE (BEAKER) (test 102 meq/L 98-107 axsx=992) CO2 (BEAKER) (test 27 meq/L 22-29 bpot=720) BLOOD UREA NITROGEN 10 mg/dL 7-21 (BEAKER) (test upbu=281) CREATININE (BEAKER) (test 0.64 mg/dL 0.57-1.25 mbxp=734) GLUCOSE RANDOM (BEAKER) 111 mg/dL 70-105 (test ubct=427) CALCIUM (BEAKER) (test 9.5 mg/dL 8.4-10.2 dtko=757) EGFR (BEAKER) (test 105 mL/min/1.73 sq m ESTIMATED GFR IS NOT kloi=4383) ACCURATE CREATININE CLEARANCE IN PREDICTING GLOMERULAR FILTRATION RATE. ESTIMATED GFR IS NOT APPLICABLE FOR DIALYSIS PATIENTS. SCREEN, [id number] 17:05:00 Test Item Value Reference Range Comments TEST URINE (BEAKER) (test acah=755) Negative PROTHROMBIN [id number] 05:13:00 Test Item Value Reference Range Comments PROTIME (BEAKER) (test aftz=421) 23.1 seconds 11.7-14.7 INR (BEAKER) (test gloa=024) 2.1 <=5.9 RECOMMENDED COUMADIN/WARFARIN INR THERAPY RANGESSTANDARD DOSE: 2.0 - 3.0 Includes: PROPHYLAXIS forvenous thrombosis, systemic embolization; TREATMENT for venous thrombosis and/or pulmonary embolus.HIGH RISK: Target INR is 2.5-3.5 for patients with mechanical heart valves.CBC W/PLT COUNT & AUTO [id number] 05:10:00 Test Item Value Reference Range Comments WHITE BLOOD CELL COUNT (BEAKER) (test kcpm=631) 5.8 K/ L 3.5-10.5 RED BLOOD CELL COUNT (BEAKER) (test wwio=978) 2.52 M/ L 3.93-5.22 HEMOGLOBIN (BEAKER) (test bnys=859) 8.2 GM/DL 11.2-15.7 HEMATOCRIT (BEAKER) (test psza=725) 25.1 % 34.1-44.9 MEAN CORPUSCULAR VOLUME (BEAKER) (test spss=695) 99.6 fL 79.4-94.8 MEAN CORPUSCULAR HEMOGLOBIN (BEAKER) (test 32.5 pg 25.6-32.2 uxmn=060) MEAN CORPUSCULAR HEMOGLOBIN CONC (BEAKER) (test 32.7 GM/DL 32.2-35.5 meko=844) RED CELL DISTRIBUTION WIDTH (BEAKER) (test 13.8 % 11.7-14.4 rpyz=357) PLATELET COUNT (BEAKER) (test park=516) 302 K/CU MM 150-450 MEAN PLATELET VOLUME (BEAKER) (test dxbt=033) 9.9 fL 9.4-12.3 NUCLEATED RED BLOOD CELLS (BEAKER) (test 0 /100 WBC 0-0 ergd=860) NEUTROPHILS RELATIVE PERCENT (BEAKER) (test 59 % fxus=930) LYMPHOCYTES RELATIVE PERCENT (BEAKER) (test 25 % dlzx=297) MONOCYTES RELATIVE PERCENT (BEAKER) (test 7 % dyqp=692) EOSINOPHILS RELATIVE PERCENT (BEAKER) (test 8 % dcrc=251) BASOPHILS RELATIVE PERCENT (BEAKER) (test 2 % nmlh=235) NEUTROPHILS ABSOLUTE COUNT (BEAKER) (test 3.46 K/ L 1.56-6.13 nmbr=581) LYMPHOCYTES ABSOLUTE COUNT (BEAKER) (test 1.44 K/ L 1.18-3.74 gtwq=117) MONOCYTES ABSOLUTE COUNT (BEAKER) (test 0.38 K/ L 0.24-0.36 ffsq=669) EOSINOPHILS ABSOLUTE COUNT (BEAKER) (test 0.46 K/ L 0.04-0.36 uotw=685) BASOPHILS ABSOLUTE COUNT (BEAKER) (test 0.09 K/ L 0.01-0.08 vvmy=537) IMMATURE GRANULOCYTES-RELATIVE PERCENT (BEAKER) 0 % 0-1 (test gmqe=8761) [id number] 05:10:00 Test Item Value Reference Range Comments MAGNESIUM (BEAKER) (test ojdh=460) 2.1 mg/dL 1.6-2.6 BASIC METABOLIC [id number] 05:10:00 Test Item Value Reference Range Comments SODIUM (BEAKER) (test 138 meq/L 136-145 sbwr=416) POTASSIUM (BEAKER) (test 3.8 meq/L 3.5-5.1 jlqc=992) CHLORIDE (BEAKER) (test 100 meq/L 98-107 ehoc=874) CO2 (BEAKER) (test 27 meq/L 22-29 drih=007) BLOOD UREA NITROGEN 11 mg/dL 7-21 (BEAKER) (test bsnf=572) CREATININE (BEAKER) (test 0.69 mg/dL 0.57-1.25 cphh=963) GLUCOSE RANDOM (BEAKER) 101 mg/dL 70-105 (test ncdl=056) CALCIUM (BEAKER) (test 9.6 mg/dL 8.4-10.2 fbak=180) EGFR (BEAKER) (test 96 mL/min/1.73 sq m ESTIMATED GFR IS NOT hoyx=5382) ACCURATE CREATININE CLEARANCE IN PREDICTING GLOMERULAR FILTRATION RATE. ESTIMATED GFR IS NOT APPLICABLE FOR DIALYSIS PATIENTS. FIBRIN SOLUBLE [id number] 18:22:00 Test Item Value Reference Range Comments FIBRIN SOLUBLE MONOMER (BEAKER) (test tuhp=1648) Negative [id number] 17:17:00 Test Item Value Reference Range Comments D-DIMER QUANTITATIVE (BEAKER) (test fimi=253) 2.06 MG/L FEU <0.50 Intended Use: The D-Dimer Assay can be used to aid in the diagnosis of Deep Vein Thrombosis (DVT) and Pulmonary Embolism Disease (PED).In patients with low pre-test probability, various studies concerning STA Liatest D-dimer test have reported that with a cutoff value of 0.50 MG/L FEU, the Negative Predictive Value (NPV) regarding the exclusion of thrombosis is within 95-100% range.PROTHROMBIN [id number] 17:15:00 Test Item Value Reference Range Comments PROTIME (BEAKER) (test jpyr=368) 24.2 seconds 11.7-14.7 INR (BEAKER) (test ilwq=567) 2.2 <=5.9 RECOMMENDED COUMADIN/WARFARIN INR THERAPY RANGESSTANDARD DOSE: 2.0 - 3.0 Includes: PROPHYLAXIS forvenous thrombosis, systemic embolization; TREATMENT for venous thrombosis and/or pulmonary embolus.HIGH RISK: Target INR is 2.5-3.5 for patients with mechanical heart valves.PROTHROMBIN [id number] 17:14: 00 Test Item Value Reference Range Comments PROTIME (BEAKER) (test eugk=871) 24.4 seconds 11.7-14.7 INR (BEAKER) (test nteh=645) 2.2 <=5.9 RECOMMENDED COUMADIN/WARFARIN INR THERAPY RANGESSTANDARD DOSE: 2.0 - 3.0 Includes: PROPHYLAXIS forvenous thrombosis, systemic embolization; TREATMENT for venous thrombosis and/or pulmonary embolus.HIGH RISK: Target INR is 2.5-3.5 for patients with mechanical heart valves.[id number] 17:14:00 Test Item Value Reference Range Comments FIBRINOGEN LEVEL (BEAKER) (test zubc=815) 862 mg/dl 225-434 PERIPHERAL BLOOD SMEAR - PATHOLOGIST [id number] 17:00:00 Test Item Value Reference Range Comments PERIPHERAL SMR REVIEW No circulating blasts. No (BEAKER) (test wois=0291) significantly increased schistocytes. [id number] Yovani Anjalilaeta (BEAKER) (test vhha=8186) Valerie(electronic signature) [id number] 16:22:00 Test Item Value Reference Range Comments HAPTOGLOBIN (BEAKER) (test uvxv=265) 226 mg/dL 14-258 VITAMIN B12 AND [id number] 14:58:00 Test Item Value Reference Range Comments VITAMIN B12 (BEAKER) (test nfvb=802) 500 pg/mL 213-816 FOLATE (BEAKER) (test tvqo=734) 3.3 ng/mL >=7.0 [id number] 14:23:00 Test Item Value Reference Range Comments MAGNESIUM (BEAKER) (test vxmi=107) 2.3 mg/dL 1.6-2.6 BASIC METABOLIC [id number] 14:23:00 Test Item Value Reference Range Comments SODIUM (BEAKER) (test 136 meq/L 136-145 clpl=819) POTASSIUM (BEAKER) (test 3.9 meq/L 3.5-5.1 houb=996) CHLORIDE (BEAKER) (test 100 meq/L 98-107 ekzt=475) CO2 (BEAKER) (test 27 meq/L 22-29 cnsl=091) BLOOD UREA NITROGEN 9 mg/dL 7-21 (BEAKER) (test dwuy=943) CREATININE (BEAKER) (test 0.68 mg/dL 0.57-1.25 joob=325) GLUCOSE RANDOM (BEAKER) 87 mg/dL 70-105 (test egca=794) CALCIUM (BEAKER) (test 9.5 mg/dL 8.4-10.2 decv=913) EGFR (BEAKER) (test 98 mL/min/1.73 sq m ESTIMATED GFR IS NOT lona=8061) ACCURATE CREATININE CLEARANCE IN PREDICTING GLOMERULAR FILTRATION RATE. ESTIMATED GFR IS NOT APPLICABLE FOR DIALYSIS PATIENTS. LACTATE DEHYDROGENASE (LDH)2018-03-16 14:21:00 Test Item Value Reference Range Comments LACTATE DEHYDROGENASE (BEAKER) (test hhmy=767) 475 U/L 125-220 RETICULOCYTE [id number] 14:11:00 Test Item Value Reference Range Comments RETICULOCYTE COUNT PCT (BEAKER) (test byis=448) 4.3 % 0.5-1.7 [id number] 06:07:00 Test Item Value Reference Range Comments MAGNESIUM (BEAKER) (test gvxh=983) 2.0 mg/dL 1.6-2.6 BASIC METABOLIC [id number] 06:07:00 Test Item Value Reference Range Comments SODIUM (BEAKER) (test 136 meq/L 136-145 urvd=879) POTASSIUM (BEAKER) (test 3.6 meq/L 3.5-5.1 flle=153) CHLORIDE (BEAKER) (test 99 meq/L 98-107 rnqt=648) CO2 (BEAKER) (test 26 meq/L 22-29 hzth=479) BLOOD UREA NITROGEN 11 mg/dL 7-21 (BEAKER) (test sncz=511) CREATININE (BEAKER) (test 0.67 mg/dL 0.57-1.25 gcbz=500) GLUCOSE RANDOM (BEAKER) 110 mg/dL 70-105 (test onrr=045) CALCIUM (BEAKER) (test 9.2 mg/dL 8.4-10.2 hrte=507) EGFR (BEAKER) (test 100 mL/min/1.73 sq m ESTIMATED GFR IS NOT jdaw=3225) ACCURATE CREATININE CLEARANCE IN PREDICTING GLOMERULAR FILTRATION RATE. ESTIMATED GFR IS NOT APPLICABLE FOR DIALYSIS PATIENTS. CBC W/PLT COUNT & AUTO [id number] 05:16:00 Test Item Value Reference Range Comments WHITE BLOOD CELL COUNT (BEAKER) (test cgux=929) 7.0 K/ L 3.5-10.5 RED BLOOD CELL COUNT (BEAKER) (test hwvb=825) 2.59 M/ L 3.93-5.22 HEMOGLOBIN (BEAKER) (test rlxq=117) 8.3 GM/DL 11.2-15.7 HEMATOCRIT (BEAKER) (test teai=038) 25.4 % 34.1-44.9 MEAN CORPUSCULAR VOLUME (BEAKER) (test ckrt=081) 98.1 fL 79.4-94.8 MEAN CORPUSCULAR HEMOGLOBIN (BEAKER) (test 32.0 pg 25.6-32.2 hptf=575) MEAN CORPUSCULAR HEMOGLOBIN CONC (BEAKER) (test 32.7 GM/DL 32.2-35.5 ftrm=460) RED CELL DISTRIBUTION WIDTH (BEAKER) (test 13.8 % 11.7-14.4 pvmu=302) PLATELET COUNT (BEAKER) (test ukdf=566) 276 K/CU MM 150-450 MEAN PLATELET VOLUME (BEAKER) (test zgrt=302) 9.9 fL 9.4-12.3 NUCLEATED RED BLOOD CELLS (BEAKER) (test 0 /100 WBC 0-0 zhsu=330) NEUTROPHILS RELATIVE PERCENT (BEAKER) (test 59 % vluv=410) LYMPHOCYTES RELATIVE PERCENT (BEAKER) (test 24 % zmvm=766) MONOCYTES RELATIVE PERCENT (BEAKER) (test 10 % yhoj=978) EOSINOPHILS RELATIVE PERCENT (BEAKER) (test 6 % vedr=330) BASOPHILS RELATIVE PERCENT (BEAKER) (test 2 % ojgu=574) NEUTROPHILS ABSOLUTE COUNT (BEAKER) (test 4.09 K/ L 1.56-6.13 qbeo=982) LYMPHOCYTES ABSOLUTE COUNT (BEAKER) (test 1.67 K/ L 1.18-3.74 nzym=985) MONOCYTES ABSOLUTE COUNT (BEAKER) (test 0.66 K/ L 0.24-0.36 quzt=860) EOSINOPHILS ABSOLUTE COUNT (BEAKER) (test 0.40 K/ L 0.04-0.36 otbb=816) BASOPHILS ABSOLUTE COUNT (BEAKER) (test 0.12 K/ L 0.01-0.08 huir=546) IMMATURE GRANULOCYTES-RELATIVE PERCENT (BEAKER) 0 % 0-1 (test ftij=1674) [id number] 16:31:00 Test Item Value Reference Range Comments MAGNESIUM (BEAKER) (test lvdg=408) 1.9 mg/dL 1.6-2.6 BASIC METABOLIC [id number] 16:31:00 Test Item Value Reference Range Comments SODIUM (BEAKER) (test 136 meq/L 136-145 ovbt=321) POTASSIUM (BEAKER) (test 3.7 meq/L 3.5-5.1 flpo=023) CHLORIDE (BEAKER) (test 97 meq/L 98-107 lfjr=527) CO2 (BEAKER) (test 28 meq/L 22-29 hpka=357) BLOOD UREA NITROGEN 10 mg/dL 7-21 (BEAKER) (test bmiv=277) CREATININE (BEAKER) (test 0.72 mg/dL 0.57-1.25 ypuk=834) GLUCOSE RANDOM (BEAKER) 100 mg/dL 70-105 (test bknt=102) CALCIUM (BEAKER) (test 9.2 mg/dL 8.4-10.2 jbqy=556) EGFR (BEAKER) (test 92 mL/min/1.73 sq m ESTIMATED GFR IS NOT hlca=8382) ACCURATE CREATININE CLEARANCE IN PREDICTING GLOMERULAR FILTRATION RATE. ESTIMATED GFR IS NOT APPLICABLE FOR DIALYSIS PATIENTS. [id number] 05:57:00 Test Item Value Reference Range Comments MAGNESIUM (BEAKER) (test oxia=968) 2.3 mg/dL 1.6-2.6 BASIC METABOLIC [id number] 05:57:00 Test Item Value Reference Range Comments SODIUM (BEAKER) (test 135 meq/L 136-145 zmbc=964) POTASSIUM (BEAKER) (test 3.6 meq/L 3.5-5.1 lawv=362) CHLORIDE (BEAKER) (test 97 meq/L 98-107 rvnf=231) CO2 (BEAKER) (test 29 meq/L 22-29 jody=214) BLOOD UREA NITROGEN 9 mg/dL 7-21 (BEAKER) (test pxsk=473) CREATININE (BEAKER) (test 0.65 mg/dL 0.57-1.25 jtsk=014) GLUCOSE RANDOM (BEAKER) 107 mg/dL 70-105 (test eoii=791) CALCIUM (BEAKER) (test 9.3 mg/dL 8.4-10.2 ftjr=067) EGFR (BEAKER) (test 103 mL/min/1.73 sq m ESTIMATED GFR IS NOT hezw=4081) ACCURATE CREATININE CLEARANCE IN PREDICTING GLOMERULAR FILTRATION RATE. ESTIMATED GFR IS NOT APPLICABLE FOR DIALYSIS PATIENTS. PROTHROMBIN TIME/[id number] 05:51:00 Test Item Value Reference Range Comments PROTIME (BEAKER) (test uefb=787) 29.0 seconds 11.7-14.7 INR (BEAKER) (test gwdd=894) 2.7 <=5.9 RECOMMENDED COUMADIN/WARFARIN INR THERAPY RANGESSTANDARD DOSE: 2.0 - 3.0 Includes: PROPHYLAXIS forvenous thrombosis, systemic embolization; TREATMENT for venous thrombosis and/or pulmonary embolus.HIGH RISK: Target INR is 2.5-3.5 for patients with mechanical heart valves.CBC W/PLT COUNT & AUTO [id number] 05:42:00 Test Item Value Reference Range Comments WHITE BLOOD CELL COUNT (BEAKER) (test ucuk=119) 8.1 K/ L 3.5-10.5 RED BLOOD CELL COUNT (BEAKER) (test mlut=564) 2.76 M/ L 3.93-5.22 HEMOGLOBIN (BEAKER) (test tybw=969) 8.9 GM/DL 11.2-15.7 HEMATOCRIT (BEAKER) (test bzow=914) 27.6 % 34.1-44.9 MEAN CORPUSCULAR VOLUME (BEAKER) (test qcgw=892) 100.0 fL 79.4-94.8 MEAN CORPUSCULAR HEMOGLOBIN (BEAKER) (test 32.2 pg 25.6-32.2 htiw=068) MEAN CORPUSCULAR HEMOGLOBIN CONC (BEAKER) (test 32.2 GM/DL 32.2-35.5 vnmm=154) RED CELL DISTRIBUTION WIDTH (BEAKER) (test 13.8 % 11.7-14.4 gpew=341) PLATELET COUNT (BEAKER) (test nemw=744) 312 K/CU MM 150-450 MEAN PLATELET VOLUME (BEAKER) (test bdcm=162) 9.9 fL 9.4-12.3 NUCLEATED RED BLOOD CELLS (BEAKER) (test 0 /100 WBC 0-0 lrzr=018) NEUTROPHILS RELATIVE PERCENT (BEAKER) (test 62 % ycng=081) LYMPHOCYTES RELATIVE PERCENT (BEAKER) (test 20 % btgq=715) MONOCYTES RELATIVE PERCENT (BEAKER) (test 11 % pkwi=292) EOSINOPHILS RELATIVE PERCENT (BEAKER) (test 5 % cgyj=452) BASOPHILS RELATIVE PERCENT (BEAKER) (test 1 % miop=810) NEUTROPHILS ABSOLUTE COUNT (BEAKER) (test 5.06 K/ L 1.56-6.13 dvvi=041) LYMPHOCYTES ABSOLUTE COUNT (BEAKER) (test 1.60 K/ L 1.18-3.74 wopw=870) MONOCYTES ABSOLUTE COUNT (BEAKER) (test 0.87 K/ L 0.24-0.36 zsar=214) EOSINOPHILS ABSOLUTE COUNT (BEAKER) (test 0.42 K/ L 0.04-0.36 apvu=393) BASOPHILS ABSOLUTE COUNT (BEAKER) (test 0.11 K/ L 0.01-0.08 mnww=964) IMMATURE GRANULOCYTES-RELATIVE PERCENT (BEAKER) 0 % 0-1 (test psus=8449) [id number] 18:05:00 Test Item Value Reference Range Comments MAGNESIUM (BEAKER) (test vnfh=856) 1.7 mg/dL 1.6-2.6 BASIC METABOLIC [id number] 18:05:00 Test Item Value Reference Range Comments SODIUM (BEAKER) (test 138 meq/L 136-145 eqaj=185) POTASSIUM (BEAKER) (test 3.4 meq/L 3.5-5.1 ryzc=149) CHLORIDE (BEAKER) (test 98 meq/L 98-107 bhst=098) CO2 (BEAKER) (test 32 meq/L 22-29 idwj=414) BLOOD UREA NITROGEN 9 mg/dL 7-21 (BEAKER) (test vask=957) CREATININE (BEAKER) (test 0.65 mg/dL 0.57-1.25 msam=092) GLUCOSE RANDOM (BEAKER) 122 mg/dL 70-105 (test ykly=496) CALCIUM (BEAKER) (test 9.4 mg/dL 8.4-10.2 ymok=832) EGFR (BEAKER) (test 103 mL/min/1.73 sq m ESTIMATED GFR IS NOT bldh=6883) ACCURATE CREATININE CLEARANCE IN PREDICTING GLOMERULAR FILTRATION RATE. ESTIMATED GFR IS NOT APPLICABLE FOR DIALYSIS PATIENTS. CARDIOLIPIN ANTIBODIES, IGG AND [id number] 12:59:00 Test Item Value Reference Range Comments ANTICARDIOLIPIN IGG ANTIBODY (BEAKER) (test < GPL <20.0 ugdc=730) ANTICARDIOLIPIN IGM ANTIBODY (BEAKER) (test 0.5 MPL <20.0 vipo=268) Anticardiolipin IgG Result Interpretation: <20.0 GPL Normal>/=20.0 GPL PositiveAnticardiolipin IgM Result Interpretation: <20.0 MPL Normal>/= 20.0 MPL [id number] 05:37:00 Test Item Value Reference Range Comments MAGNESIUM (BEAKER) (test vuky=724) 2.3 mg/dL 1.6-2.6 BASIC METABOLIC [id number] 05:37:00 Test Item Value Reference Range Comments SODIUM (BEAKER) (test 134 meq/L 136-145 ixzo=858) POTASSIUM (BEAKER) (test 3.6 meq/L 3.5-5.1 vixs=963) CHLORIDE (BEAKER) (test 97 meq/L 98-107 irue=709) CO2 (BEAKER) (test 28 meq/L 22-29 vipl=108) BLOOD UREA NITROGEN 8 mg/dL 7-21 (BEAKER) (test vkki=801) CREATININE (BEAKER) (test 0.65 mg/dL 0.57-1.25 kvwu=609) GLUCOSE RANDOM (BEAKER) 110 mg/dL 70-105 (test mdwh=353) CALCIUM (BEAKER) (test 9.0 mg/dL 8.4-10.2 dixt=779) EGFR (BEAKER) (test 103 mL/min/1.73 sq m ESTIMATED GFR IS NOT zvmc=5113) ACCURATE CREATININE CLEARANCE IN PREDICTING GLOMERULAR FILTRATION RATE. ESTIMATED GFR IS NOT APPLICABLE FOR DIALYSIS PATIENTS. PROTHROMBIN [id number] 04:43:00 Test Item Value Reference Range Comments PROTIME (BEAKER) (test pfgj=683) 28.9 seconds 11.7-14.7 INR (BEAKER) (test peml=151) 2.7 <=5.9 RECOMMENDED COUMADIN/WARFARIN INR THERAPY RANGESSTANDARD DOSE: 2.0 - 3.0 Includes: PROPHYLAXIS forvenous thrombosis, systemic embolization; TREATMENT for venous thrombosis and/or pulmonary embolus.HIGH RISK: Target INR is 2.5-3.5 for patients with mechanical heart valves.CBC W/PLT COUNT & AUTO [id number] 04:40:00 Test Item Value Reference Range Comments WHITE BLOOD CELL COUNT (BEAKER) (test miee=629) 8.8 K/ L 3.5-10.5 RED BLOOD CELL COUNT (BEAKER) (test glpc=146) 2.82 M/ L 3.93-5.22 HEMOGLOBIN (BEAKER) (test vjan=404) 9.2 GM/DL 11.2-15.7 HEMATOCRIT (BEAKER) (test yzet=774) 28.0 % 34.1-44.9 MEAN CORPUSCULAR VOLUME (BEAKER) (test dnfi=731) 99.3 fL 79.4-94.8 MEAN CORPUSCULAR HEMOGLOBIN (BEAKER) (test 32.6 pg 25.6-32.2 podn=092) MEAN CORPUSCULAR HEMOGLOBIN CONC (BEAKER) (test 32.9 GM/DL 32.2-35.5 zqvo=137) RED CELL DISTRIBUTION WIDTH (BEAKER) (test 13.9 % 11.7-14.4 cubf=804) PLATELET COUNT (BEAKER) (test hgup=472) 299 K/CU MM 150-450 MEAN PLATELET VOLUME (BEAKER) (test krlh=530) 9.5 fL 9.4-12.3 NUCLEATED RED BLOOD CELLS (BEAKER) (test 0 /100 WBC 0-0 oyrj=829) NEUTROPHILS RELATIVE PERCENT (BEAKER) (test 64 % vtek=376) LYMPHOCYTES RELATIVE PERCENT (BEAKER) (test 18 % clxn=309) MONOCYTES RELATIVE PERCENT (BEAKER) (test 13 % wkhs=363) EOSINOPHILS RELATIVE PERCENT (BEAKER) (test 4 % vrfz=059) BASOPHILS RELATIVE PERCENT (BEAKER) (test 1 % mpjt=079) NEUTROPHILS ABSOLUTE COUNT (BEAKER) (test 5.63 K/ L 1.56-6.13 jenb=736) LYMPHOCYTES ABSOLUTE COUNT (BEAKER) (test 1.57 K/ L 1.18-3.74 nipz=340) MONOCYTES ABSOLUTE COUNT (BEAKER) (test 1.10 K/ L 0.24-0.36 slsr=317) EOSINOPHILS ABSOLUTE COUNT (BEAKER) (test 0.35 K/ L 0.04-0.36 moyf=352) BASOPHILS ABSOLUTE COUNT (BEAKER) (test 0.09 K/ L 0.01-0.08 redn=812) IMMATURE GRANULOCYTES-RELATIVE PERCENT (BEAKER) 0 % 0-1 (test pdeu=3041) [id number] 16:33:00 Test Item Value Reference Range Comments MAGNESIUM (BEAKER) (test ryqo=895) 2.1 mg/dL 1.6-2.6 BASIC METABOLIC [id number] 16:33:00 Test Item Value Reference Range Comments SODIUM (BEAKER) (test 133 meq/L 136-145 xctx=283) POTASSIUM (BEAKER) (test 3.8 meq/L 3.5-5.1 swuy=762) CHLORIDE (BEAKER) (test 95 meq/L 98-107 wnso=998) CO2 (BEAKER) (test 27 meq/L 22-29 xsmm=498) BLOOD UREA NITROGEN 7 mg/dL 7-21 (BEAKER) (test esps=092) CREATININE (BEAKER) (test 0.67 mg/dL 0.57-1.25 aejw=929) GLUCOSE RANDOM (BEAKER) 130 mg/dL 70-105 (test tqmo=943) CALCIUM (BEAKER) (test 9.0 mg/dL 8.4-10.2 mpso=130) EGFR (BEAKER) (test 100 mL/min/1.73 sq m ESTIMATED GFR IS NOT zseb=8768) ACCURATE CREATININE CLEARANCE IN PREDICTING GLOMERULAR FILTRATION RATE. ESTIMATED GFR IS NOT APPLICABLE FOR DIALYSIS PATIENTS. PROTHROMBIN TIME/[id number] 11:16:00 Test Item Value Reference Range Comments PROTIME (BEAKER) (test ioqy=079) 28.4 seconds 11.7-14.7 INR (BEAKER) (test pukk=507) 2.7 <=5.9 RECOMMENDED COUMADIN/WARFARIN INR THERAPY RANGESSTANDARD DOSE: 2.0 - 3.0 Includes: PROPHYLAXIS forvenous thrombosis, systemic embolization; TREATMENT for venous thrombosis and/or pulmonary embolus.HIGH RISK: Target INR is 2.5-3.5 for patients with mechanical heart valves.HEMOGLOBIN [id number] 10:45:00 Test Item Value Reference Range Comments HEMOGLOBIN A1C (BEAKER) (test eegn=128) 4.4 % 4.3-6.1 RAD, CHEST, 1 VIEW, NON [id number] 10:21:00Reason for exam:->line placementShould this be performed at the bedside?->YesFINAL REPORT TECHNIQUE: Frontal view of the chest. INDICATION: 37-year-old woman after central line placement. COMPARISON: Chest radiograph from earlier same date. FINDINGS: LINES/TUBES: Interval repositioning of a right internal jugular central venous catheter, the tip now projects over the expected region of the right atrium. Unchanged implanted cardiac device with intact lead. LUNGS : The lungs are well inflated and clear. PLEURA: No pneumothorax or significant pleural effusions. HEART AND MEDIASTINUM: The cardiomediastinal silhouette is within normal limits. Coronary stents. SOFT TISSUES AND BONES: Unremarkable. IMPRESSION:Interval repositioning of the right internal jugular central venous catheter, the tip now projects over the expected region of the right atrium. Otherwise, no significant change since chest radiograph from earlier same date. Signed: Marcos Shaffer MDReport Verified Date/Time: 03/13/2018 10:21:51 Reading Location: [address] Body Reading Room RAD, CHEST, 1 VIEW, NON [id number] 08:15:00Reason for exam:->s/p central lineShould this be performed at the bedside?->YesFINAL REPORT TECHNIQUE: Frontal view of the chest. INDICATION: 37-year-old woman after central line placement. COMPARISON: Chest radiograph 03/11/2018. FINDINGS: LINES/TUBES: Thetip of a right internal jugular central venous catheter projects over the expected region of the right subclavian vein. Unchanged implanted cardiac device with intact lead. LUNGS: Central pulmonary venous congestion. The lungs are well inflated and clear. PLEURA: Resolved bilateral pleural effusions. No pneumothorax. HEART AND MEDIASTINUM: The cardiomediastinal silhouette is within normal limits. Coronary stents. SOFT TISSUES AND BONES: Unremarkable. IMPRESSION:The tip of a right internal jugular central venous catheter projects over the expected region of the right subclavian vein; recommend repositioning. Resolved central pulmonary venous congestion and bilateral pleural effusions. The above findings were discussed with patient's nurse Cornelia, who acknowledged the findings, on 03/13/2018 at 8:15 AM. Signed: Marcos Shaffer MDReport Verified Date/Time: 03/13/2018 08:15:50 Reading Location: [address] Body Reading Room Electronically signed by: MARCOS SHAFFER MD on 2017 08:15 [id number] 06:11:00 Test Item Value Reference Range Comments MAGNESIUM (BEAKER) (test 2.0 mg/dL 1.6-2.6 Specimen slightly hemolyzed tpkd=641) BASIC METABOLIC [id number] 06:11:00 Test Item Value Reference Range Comments SODIUM (BEAKER) (test 134 meq/L 136-145 vplm=062) POTASSIUM (BEAKER) (test 3.4 meq/L 3.5-5.1 Specimen slightly pjgf=688) hemolyzed CHLORIDE (BEAKER) (test 96 meq/L 98-107 lpso=810) CO2 (BEAKER) (test 27 meq/L 22-29 kebp=307) BLOOD UREA NITROGEN 7 mg/dL 7-21 (BEAKER) (test jiuf=425) CREATININE (BEAKER) (test 0.63 mg/dL 0.57-1.25 Specimen slightly nfpn=701) hemolyzed GLUCOSE RANDOM (BEAKER) 113 mg/dL 70-105 (test yiwk=632) CALCIUM (BEAKER) (test 8.9 mg/dL 8.4-10.2 wooe=674) EGFR (BEAKER) (test 107 mL/min/1.73 sq m ESTIMATED GFR IS NOT mzpy=9386) ACCURATE CREATININE CLEARANCE IN PREDICTING GLOMERULAR FILTRATION RATE. ESTIMATED GFR IS NOT APPLICABLE FOR DIALYSIS PATIENTS. [id number] 05:55:00 Test Item Value Reference Range Comments ACTIVATED CLOTTING TIME 175 sec TESTED AT [facility] [address] (BEAKER) (test miju=353) [facility] [address] CBC W/PLT COUNT & AUTO [id number] 05:45:00 Test Item Value Reference Range Comments WHITE BLOOD CELL COUNT (BEAKER) (test bcrk=226) 9.1 K/ L 3.5-10.5 RED BLOOD CELL COUNT (BEAKER) (test rkfz=719) 3.30 M/ L 3.93-5.22 HEMOGLOBIN (BEAKER) (test bzjp=227) 10.6 GM/DL 11.2-15.7 HEMATOCRIT (BEAKER) (test cwig=418) 32.8 % 34.1-44.9 MEAN CORPUSCULAR VOLUME (BEAKER) (test urtr=138) 99.4 fL 79.4-94.8 MEAN CORPUSCULAR HEMOGLOBIN (BEAKER) (test 32.1 pg 25.6-32.2 zaxt=877) MEAN CORPUSCULAR HEMOGLOBIN CONC (BEAKER) (test 32.3 GM/DL 32.2-35.5 omvy=210) RED CELL DISTRIBUTION WIDTH (BEAKER) (test 14.4 % 11.7-14.4 bjju=166) PLATELET COUNT (BEAKER) (test albe=831) 391 K/CU MM 150-450 MEAN PLATELET VOLUME (BEAKER) (test xldt=806) 9.4 fL 9.4-12.3 NUCLEATED RED BLOOD CELLS (BEAKER) (test 0 /100 WBC 0-0 epor=582) NEUTROPHILS RELATIVE PERCENT (BEAKER) (test 72 % krpf=269) LYMPHOCYTES RELATIVE PERCENT (BEAKER) (test 15 % mquw=083) MONOCYTES RELATIVE PERCENT (BEAKER) (test 10 % fcgj=552) EOSINOPHILS RELATIVE PERCENT (BEAKER) (test 2 % bvvf=884) BASOPHILS RELATIVE PERCENT (BEAKER) (test 1 % iljd=585) NEUTROPHILS ABSOLUTE COUNT (BEAKER) (test 6.52 K/ L 1.56-6.13 hmbv=870) LYMPHOCYTES ABSOLUTE COUNT (BEAKER) (test 1.36 K/ L 1.18-3.74 gkcg=821) MONOCYTES ABSOLUTE COUNT (BEAKER) (test 0.91 K/ L 0.24-0.36 zkzp=313) EOSINOPHILS ABSOLUTE COUNT (BEAKER) (test 0.16 K/ L 0.04-0.36 zjgv=466) BASOPHILS ABSOLUTE COUNT (BEAKER) (test 0.09 K/ L 0.01-0.08 ydxs=661) IMMATURE GRANULOCYTES-RELATIVE PERCENT (BEAKER) 0 % 0-1 (test klsj=2257) [id number] 02:57:00 Test Item Value Reference Range Comments ACTIVATED CLOTTING TIME 180 sec TESTED AT [address] (BEAKER) (test tmxc=970) [place] [address] [id number] 01:17:00 Test Item Value Reference Range Comments ACTIVATED CLOTTING TIME 175 sec TESTED AT [address] (BEAKER) (test pikt=469) [place] [address] [id number] 00:01:00 Test Item Value Reference Range Comments ACTIVATED CLOTTING TIME 164 sec TESTED AT [facility] [address] (BEAKER) (test ygcb=628) [place] [address] [id number] 22:57:00 Test Item Value Reference Range Comments ACTIVATED CLOTTING TIME 175 sec TESTED AT [facility] [address] (BEAKER) (test sukj=747) [place] [address] [id number] 20:50:00 Test Item Value Reference Range Comments ACTIVATED CLOTTING TIME 202 sec TESTED AT [facility] [address] (BEAKER) (test fzqy=008) [place] [address] [id number] 18:37:00 Test Item Value Reference Range Comments ACTIVATED CLOTTING TIME 175 sec TESTED AT [place] [id number] (BEAKER) (test rylm=574) [place] [address] [id number] 17:39:00 Test Item Value Reference Range Comments MAGNESIUM (BEAKER) (test 2.1 mg/dL 1.6-2.6 Specimen slightly hemolyzed rxpv=519) BASIC METABOLIC [id number] 17:39:00 Test Item Value Reference Range Comments SODIUM (BEAKER) (test 136 meq/L 136-145 ylay=101) POTASSIUM (BEAKER) (test 4.4 meq/L 3.5-5.1 Specimen slightly yflw=649) hemolyzed CHLORIDE (BEAKER) (test 100 meq/L 98-107 kvbo=959) CO2 (BEAKER) (test 25 meq/L 22-29 dtuv=565) BLOOD UREA NITROGEN 8 mg/dL 7-21 (BEAKER) (test jjyy=415) CREATININE (BEAKER) (test 0.68 mg/dL 0.57-1.25 Specimen slightly pmdn=304) hemolyzed GLUCOSE RANDOM (BEAKER) 116 mg/dL 70-105 (test ojij=156) CALCIUM (BEAKER) (test 9.5 mg/dL 8.4-10.2 edco=559) EGFR (BEAKER) (test 98 mL/min/1.73 sq m ESTIMATED GFR IS NOT bjjy=7567) ACCURATE CREATININE CLEARANCE IN PREDICTING GLOMERULAR FILTRATION RATE. ESTIMATED GFR IS NOT APPLICABLE FOR DIALYSIS PATIENTS. [id number] 15:33:00 Test Item Value Reference Range Comments ACTIVATED CLOTTING TIME 295 sec TESTED AT [facility] [address] [facility] (BEAKER) (test ruhv=560) [facility] [address] [id number] 13:47:00 Test Item Value Reference Range Comments ACTIVATED CLOTTING TIME 411 sec TESTED AT [facility] [address] [facility] (BEAKER) (test nzcf=650) [place] [id number] TSH/FREE T4 IF [id number] 12:48:00 Test Item Value Reference Range Comments THYROID STIMULATING HORMONE (BEAKER) (test 2.63 uIU/mL 0.35-4.94 wzae=471) SCREEN, [id number] 12:07:00 Test Item Value Reference Range Comments [facility] (test nuce=985) Negative TROPONIN [id number] 11:42:00 Test Item Value Reference Range Comments TROPONIN I (BEAKER) (test reoe=031) 14.03 ng/mL 0.00-0.03 Troponin I (TnI) levels must be interpreted [...] failure, acidosis, acute neurological disease, and persistent tachyarrhythmia.LIPID [id number] 11:36:00 Test Item Value Reference Range Comments TRIGLYCERIDES (BEAKER) (test 92 mg/dL Specimen slightly hemolyzed ntqk=086) CHOLESTEROL (BEAKER) (test 126 mg/dL Specimen slightly hemolyzed bduu=367) HDL CHOLESTEROL (BEAKER) (test 40 mg/dL ijfu=562) LDL CHOLESTEROL CALCULATED 68 mg/dL (BEAKER) (test ntnm=875) Triglyceride Reference Range: Low Risk <150 Borderline 150- 199 High Risk 200-499 Very High Risk >=500Cholesterol Reference Range: Low Risk <200 Borderline 200-239 High Risk > 240HDL Cholesterol Reference Range: Low Risk >=60 High Risk <40LDL Cholesterol Reference Range: Optimal <100 Near Optimal 100-129 Borderline 130-159 High 160-189 Very High >=190HEMOGLOBIN [id number] 10:01:00 Test Item Value Reference Range Comments HEMOGLOBIN A1C (BEAKER) (test omce=245) 4.4 % 4.3-6.1 [id number] 04:12:00 Test Item Value Reference Range Comments MAGNESIUM (BEAKER) (test abmp=230) 2.7 mg/dL 1.6-2.6 BASIC METABOLIC [id number] 04:12:00 Test Item Value Reference Range Comments SODIUM (BEAKER) (test 136 meq/L 136-145 jjtg=363) POTASSIUM (BEAKER) (test 3.7 meq/L 3.5-5.1 wccd=205) CHLORIDE (BEAKER) (test 101 meq/L 98-107 xzzw=322) CO2 (BEAKER) (test 24 meq/L 22-29 ipok=374) BLOOD UREA NITROGEN 7 mg/dL 7-21 (BEAKER) (test kiju=860) CREATININE (BEAKER) (test 0.67 mg/dL 0.57-1.25 vdxs=422) GLUCOSE RANDOM (BEAKER) 103 mg/dL 70-105 (test jtmc=597) CALCIUM (BEAKER) (test 9.2 mg/dL 8.4-10.2 pfhu=475) EGFR (BEAKER) (test 100 mL/min/1.73 sq m ESTIMATED GFR IS NOT sufn=8388) ACCURATE CREATININE CLEARANCE IN PREDICTING GLOMERULAR FILTRATION RATE. ESTIMATED GFR IS NOT APPLICABLE FOR DIALYSIS PATIENTS. CBC W/PLT COUNT & AUTO [id number] 03:51:00 Test Item Value Reference Range Comments WHITE BLOOD CELL COUNT (BEAKER) (test kimm=148) 10.5 K/ L 3.5-10.5 RED BLOOD CELL COUNT (BEAKER) (test zxzc=655) 3.37 M/ L 3.93-5.22 HEMOGLOBIN (BEAKER) (test epom=942) 10.9 GM/DL 11.2-15.7 HEMATOCRIT (BEAKER) (test wtvw=346) 33.9 % 34.1-44.9 MEAN CORPUSCULAR VOLUME (BEAKER) (test bime=623) 100.6 fL 79.4-94.8 MEAN CORPUSCULAR HEMOGLOBIN (BEAKER) (test 32.3 pg 25.6-32.2 ytbm=483) MEAN CORPUSCULAR HEMOGLOBIN CONC (BEAKER) (test 32.2 GM/DL 32.2-35.5 qqae=094) RED CELL DISTRIBUTION WIDTH (BEAKER) (test 14.6 % 11.7-14.4 nait=886) PLATELET COUNT (BEAKER) (test ciks=049) 410 K/CU MM 150-450 MEAN PLATELET VOLUME (BEAKER) (test ltlo=662) 9.4 fL 9.4-12.3 NUCLEATED RED BLOOD CELLS (BEAKER) (test 0 /100 WBC 0-0 ugax=757) NEUTROPHILS RELATIVE PERCENT (BEAKER) (test 79 % vtmx=796) LYMPHOCYTES RELATIVE PERCENT (BEAKER) (test 12 % eeqz=124) MONOCYTES RELATIVE PERCENT (BEAKER) (test 7 % kcmc=958) EOSINOPHILS RELATIVE PERCENT (BEAKER) (test 1 % mfhr=440) BASOPHILS RELATIVE PERCENT (BEAKER) (test 1 % gfbv=403) NEUTROPHILS ABSOLUTE COUNT (BEAKER) (test 8.31 K/ L 1.56-6.13 mpgn=190) LYMPHOCYTES ABSOLUTE COUNT (BEAKER) (test 1.24 K/ L 1.18-3.74 ywww=088) MONOCYTES ABSOLUTE COUNT (BEAKER) (test 0.78 K/ L 0.24-0.36 geii=511) EOSINOPHILS ABSOLUTE COUNT (BEAKER) (test 0.06 K/ L 0.04-0.36 fmif=877) BASOPHILS ABSOLUTE COUNT (BEAKER) (test 0.08 K/ L 0.01-0.08 nfoz=325) IMMATURE GRANULOCYTES-RELATIVE PERCENT (BEAKER) 1 % 0-1 (test qvqy=1406) TROPONIN [id number] 00:56:00 Test Item Value Reference Range Comments TROPONIN I (BEAKER) (test mabk=937) 9.74 ng/mL 0.00-0.03 Troponin I (TnI) levels must be interpreted [...] failure, acidosis, acute neurological disease, and persistent tachyarrhythmia.RAD, CHEST, 1 VIEW, NON [id number] 22:40:00Reason for exam:->chest painIs the patient ?->NoShould this be performed at the bedside?->YesFINAL REPORT History: Chest pain. Comparison: None. Findings: A single view of the chest is submitted. The cardiac silhouette is within normal limits for size. A left subclavian, single-lead ICD is in place. There is mild central pulmonary vascular prominence. Diffuse interstitial opacities may reflect mild pulmonary interstitial edema. There are small bilateral pleural effusions. Adjacent bibasilar opacities may reflect a combination of atelectasis, edema and effusion but pneumonitis should be excluded clinically. There is no pneumothorax or acute bony abnormality. Signed:Daniel Jensen MDReport Verified Date/Time: 03/11/2018 22:40:03 Reading Location: [address] Reading Room TROPONIN [id number] 21:15:00 Test Item Value Reference Range Comments TROPONIN I (BEAKER) (test nind=150) 4.61 ng/mL 0.00-0.03 Troponin I (TnI) levels must be interpreted [...] failure, acidosis, acute neurological disease, and persistent tachyarrhythmia.B-TYPE NATRIURETIC FACTOR (BNP) 21:14:00 Test Item Value Reference Range Comments B-TYPE NATRIURETIC PEPTIDE (BEAKER) (test 1863 pg/mL 0-100 keky=623) [id number] 21:10:00 Test Item Value Reference Range Comments MAGNESIUM (BEAKER) (test tcuh=025) 1.9 mg/dL 1.6-2.6 BASIC METABOLIC [id number] 21:10:00 Test Item Value Reference Range Comments SODIUM (BEAKER) (test 140 meq/L 136-145 vhpb=529) POTASSIUM (BEAKER) (test 4.0 meq/L 3.5-5.1 oudx=026) CHLORIDE (BEAKER) (test 106 meq/L 98-107 qkhh=489) CO2 (BEAKER) (test 23 meq/L 22-29 qohw=020) BLOOD UREA NITROGEN 6 mg/dL 7-21 (BEAKER) (test gkcz=158) CREATININE (BEAKER) (test 0.70 mg/dL 0.57-1.25 sifw=294) GLUCOSE RANDOM (BEAKER) 100 mg/dL 70-105 (test dexn=144) CALCIUM (BEAKER) (test 9.3 mg/dL 8.4-10.2 mvmd=279) EGFR (BEAKER) (test 95 mL/min/1.73 sq m ESTIMATED GFR IS NOT ltmj=7777) ACCURATE CREATININE CLEARANCE IN PREDICTING GLOMERULAR FILTRATION RATE. ESTIMATED GFR IS NOT APPLICABLE FOR DIALYSIS PATIENTS. LIPID [id number] 21:10:00 Test Item Value Reference Range Comments TRIGLYCERIDES (BEAKER) (test nnvj=669) 83 mg/dL CHOLESTEROL (BEAKER) (test koxz=147) 132 mg/dL HDL CHOLESTEROL (BEAKER) (test nguu=179) 43 mg/dL LDL CHOLESTEROL CALCULATED (BEAKER) (test 72 mg/dL zcwj=221) Triglyceride Reference Range: Low Risk <150 Borderline 150- 199 High Risk 200-499 Very High Risk >=500Cholesterol Reference Range: Low Risk <200 Borderline 200-239 High Risk > 240HDL Cholesterol Reference Range: Low Risk >=60 High Risk <40LDL Cholesterol Reference Range: Optimal <100 Near Optimal 100-129 Borderline 130-159 High 160-189 Very High [id number] 21:03:00 Test Item Value Reference Range Comments PARTIAL THROMBOPLASTIN TIME (BEAKER) (test 39.7 seconds 22.5-36.0 neqe=538) PROTHROMBIN TIME/[id number] 21:02:00 Test Item Value Reference Range Comments PROTIME (BEAKER) (test odyc=076) 29.0 seconds 11.7-14.7 INR (BEAKER) (test vnnd=755) 2.7 <=5.9 RECOMMENDED COUMADIN/WARFARIN INR THERAPY RANGESSTANDARD DOSE: 2.0 - 3.0 Includes: PROPHYLAXIS forvenous thrombosis, systemic embolization; TREATMENT for venous thrombosis and/or pulmonary embolus.HIGH RISK: Target INR is 2.5-3.5 for patients with mechanical heart valves.CBC W/PLT COUNT & AUTO [id number] 20:55:00 Test Item Value Reference Range Comments WHITE BLOOD CELL COUNT (BEAKER) (test xnkt=873) 13.8 K/ L 3.5-10.5 RED BLOOD CELL COUNT (BEAKER) (test szvf=387) 3.51 M/ L 3.93-5.22 HEMOGLOBIN (BEAKER) (test utqg=388) 11.4 GM/DL 11.2-15.7 HEMATOCRIT (BEAKER) (test cssm=792) 36.0 % 34.1-44.9 MEAN CORPUSCULAR VOLUME (BEAKER) (test mvgz=776) 102.6 fL 79.4-94.8 MEAN CORPUSCULAR HEMOGLOBIN (BEAKER) (test 32.5 pg 25.6-32.2 xqut=449) MEAN CORPUSCULAR HEMOGLOBIN CONC (BEAKER) (test 31.7 GM/DL 32.2-35.5 drbs=808) RED CELL DISTRIBUTION WIDTH (BEAKER) (test 14.6 % 11.7-14.4 ozej=398) PLATELET COUNT (BEAKER) (test aftv=603) 446 K/CU MM 150-450 MEAN PLATELET VOLUME (BEAKER) (test mqri=077) 9.6 fL 9.4-12.3 NUCLEATED RED BLOOD CELLS (BEAKER) (test 0 /100 WBC 0-0 dinl=360) NEUTROPHILS RELATIVE PERCENT (BEAKER) (test 84 % sgfb=389) LYMPHOCYTES RELATIVE PERCENT (BEAKER) (test 10 % wboj=055) MONOCYTES RELATIVE PERCENT (BEAKER) (test 6 % xfvg=647) EOSINOPHILS RELATIVE PERCENT (BEAKER) (test 0 % vmnm=449) BASOPHILS RELATIVE PERCENT (BEAKER) (test 1 % ogwq=073) NEUTROPHILS ABSOLUTE COUNT (BEAKER) (test 11.54 K/ L 1.56-6.13 fmsk=298) LYMPHOCYTES ABSOLUTE COUNT (BEAKER) (test 1.32 K/ L 1.18-3.74 ogbv=546) MONOCYTES ABSOLUTE COUNT (BEAKER) (test 0.80 K/ L 0.24-0.36 kdyk=204) EOSINOPHILS ABSOLUTE COUNT (BEAKER) (test 0.02 K/ L 0.04-0.36 qtaa=268) BASOPHILS ABSOLUTE COUNT (BEAKER) (test 0.07 K/ L 0.01-0.08 cbtb=054) IMMATURE GRANULOCYTES-RELATIVE PERCENT (BEAKER) 0 % 0-1 (test dbpt=2335)
[2018-04-05] MEDS ORDERED: NA CHLORIDE 0.9% 1,000 ML ONE (06:00)
[2018-04-05] MEDS ORDERED: MORPHINE 4 MG/ML SYR ONE (06:00)
[2018-04-05] MEDS ORDERED: ONDANSETRON 4 MG/2 ML VIAL ONE (06:00)
[2018-04-05 06:40] LABS: Absolute Lymphocytes (CBC) 2.2 K/uL (0.7-4.9); Absolute Monocytes 0.4 K/uL (0.1-1.3); Absolute Neutrophil 4.1 K/uL (1.8-8.0); Basophils % 2.5 % (0-1.3); Eosinophils % 1.9 % (0-4.4); Hematocrit 28.2 % (36.0-45.0); Lymphocytes % 31.5 % (15.3-44.8); MCH 30.8 pg (27.0-35.0); MCV 92.8 fL (80-100); MPV 7.6 fL (7.6-11.3); RBC Red Blood Cell Count 3.03 M/uL (3.86-4.86)
[2018-04-05 06:48] LABS: Protime INR 1.96
--- NOTE | 2018-04-05 07:02 | EDPHYS ---
Physician Documentation [facility] Name: Yari Smith Age: 37 yrs Sex: Female : 1980 Arrival Date: 04/05/2018 Time: 05:42 Bed 4 Private MD: ED Physician Easton Villar HPI: 04/05 05:50 This 37 yrs old Female presents to ER via EMS with complaints of chest pain antoni and sob. 05:50 The patient or guardian reports chest pain that is located primarily in the substernal antoni area. The pain does not radiate. Associated signs and symptoms: The patient has no apparent associated signs or symptoms. The chest pain is described as a heaviness. Modifying factors: The symptoms are alleviated by antacids, the symptoms are aggravated by nothing. Severity of pain: At its worst the pain was mild moderate in the emergency department the pain is unchanged. The patient has experienced similar episodes in the past, several times. 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 fc Historical: - Allergies: 05:54 No Known Allergies; fc - Home Meds: 05:54 atorvastatin 40 mg Oral tab 1 tab nightly [Active]; levothyroxine 100 mcg tab 1 tab fc once daily [Active]; Lasix 20 mg Oral tab 1 tab once daily [Active]; folic acid 1 mg Oral tab 1 tab once daily [Active]; Plavix 75 mg Oral tab 1 tab once daily [Active]; amiodarone 200 mg Oral tab 1 tab once daily [Active]; warfarin 2 mg Oral tab 1 tab once daily [Active]; fluoxetine 10 mg Oral tab nightly [Active]; promethazine 25 mg Oral tab 1 tab q6hrs prn [Active]; - PMHx: 05:54 Anxiety; CHRONIC NAUSEA; blood clots in legs in hips; DVT; Myocardial infarction; HEART fc FAILURE; Depression; PTSD; pulmonary emboli; UTI; Hypothyroidism; - PSHx: 05:54 pacer/defib; fc - Immunization history:: Last tetanus immunization: unknown. - Social history:: Smoking status: Patient/guardian denies using tobacco. - Ebola Screening: : Patient negative for fever greater than or equal to 101.5 degrees Fahrenheit, and additional compatible Ebola Virus Disease symptoms Patient denies exposure to infectious person Patient denies travel to an Ebola-affected area in the 21 days before illness onset. - Family history:: not pertinent. ROS: 05:50 Constitutional: Negative for fever, chills, and weight loss, Eyes: Negative for injury, antoni pain, redness, and discharge, ENT: Negative for injury, pain, and discharge, Neck: Negative for injury, pain, and swelling, Respiratory: Negative for shortness of breath, cough, wheezing, and pleuritic chest pain, Abdomen/GI: Negative for abdominal pain, nausea, vomiting, diarrhea, and constipation, Back: Negative for injury and pain, : Negative for injury, bleeding, discharge, and swelling, MS/Extremity: Negative for injury and deformity, Skin: Negative for injury, rash, and discoloration, Neuro: Negative for headache, weakness, numbness, tingling, and seizure, Psych: Negative for depression, anxiety, suicide ideation, homicidal ideation, and hallucinations, Allergy/Immunology: Negative for hives, rash, and allergies, Endocrine: Negative for neck swelling, polydipsia, polyuria, polyphagia, and marked weight changes, Hematologic/Lymphatic: Negative for swollen nodes, abnormal bleeding, and unusual bruising. 05:50 Cardiovascular: Positive for chest pain. Exam: 05:50 Constitutional: This is a well developed, well nourished patient who is awake, alert, antoni and in no acute distress. Head/Face: Normocephalic, atraumatic. Eyes: Pupils equal round and reactive to light, extra-ocular motions intact. Lids and lashes normal. Conjunctiva and sclera are non-icteric and not injected. Cornea within normal limits. Periorbital areas with no swelling, redness, or edema. ENT: Nares patent. No nasal discharge, no septal abnormalities noted. Tympanic membranes are normal and external auditory canals are clear. Oropharynx with no redness, swelling, or masses, exudates, or evidence of obstruction, uvula midline. Mucous membranes moist. Neck: Trachea midline, no thyromegaly or masses palpated, and no cervical lymphadenopathy. Supple, full range of motion without nuchal rigidity, or vertebral point tenderness. No Meningismus. Chest/axilla: Normal chest wall appearance and motion. Nontender with no deformity. No lesions are appreciated. Cardiovascular: Regular rate and rhythm with a normal S1 and S2. No gallops, murmurs, or rubs. Normal PMI, no JVD. No pulse deficits. Respiratory: Lungs have equal breath sounds bilaterally, clear to auscultation and percussion. No rales, rhonchi or wheezes noted. No increased work of breathing, no retractions or nasal flaring. Abdomen/GI: Soft, non-tender, with normal bowel sounds. No distension or tympany. No guarding or rebound. No evidence of tenderness throughout. Back: No spinal tenderness. No costovertebral tenderness. Full range of motion. Female : Normal external genitalia. Skin: Warm, dry with normal turgor. Normal color with no rashes, no lesions, and no evidence of cellulitis. MS/ Extremity: Pulses equal, no cyanosis. Neurovascular intact. Full, normal range of motion. Neuro: Awake and alert, GCS 15, oriented to person, place, time, and situation. Cranial nerves II-XII grossly intact. Motor strength 5/5 in all extremities. Sensory grossly intact. Cerebellar exam normal. Normal gait. Vital Signs: 05:35 BP 109 / 78; Pulse 107; Resp 24; Temp 97.1(O); Pulse Ox 94% on R/A; Weight 62.6 kg (R); fc Height 5 ft. 3 in. (160.02 cm) (R); Pain 7/10; 06:40 BP 122 / 82; Pulse 94; Resp 18; Pulse Ox 96% on R/A; aa1 05:35 Body Mass Index 24.45 (62.60 kg, 160.02 cm) MDM: 05:47 Patient medically screened. [facility] 05:56 Data reviewed: vital signs, nurses notes, lab test result(s), EKG, radiologic studies, [facility] plain films. 04/05 05:49 Order name: Basic Metabolic Panel [facility] 04/05 05:49 Order name: CBC with Diff; Complete Time: 06:42 [facility] 04/05 07:29 Interpretation: Normal except: RBC 3.03; HGB 9.4; HCT 28.2; MCV 92.8; PLT 527; RDW cp 17.7; BASO% 2.5. 04/05 05:49 Order name: Ckmb [facility] 04/05 05:49 Order name: CPK [facility] 04/05 05:49 Order name: LFT's [facility] 04/05 05:49 Order name: Magnesium [facility] 04/05 05:49 Order name: NT PRO-BNP [facility] 04/05 05:49 Order name: PT-INR; Complete Time: 06:58 [facility] 04/05 07:30 Interpretation: Reviewed. cp 04/05 05:49 Order name: Ptt, Activated; Complete Time: 06:58 [facility] 04/05 05:49 Order name: Troponin (emerg Dept Use Only); Complete Time: 06:58 [facility] 04/05 07:30 Interpretation: Abnormal: TROPED 0.06. cp 04/05 05:49 Order name: Lipase [facility] 04/05 06:10 Order name: UDS [facility] 04/05 06:10 Order name: ETOH Level [facility] 04/05 07:02 Order name: Type And Screen [facility] 04/05 05:49 Order name: XRAY Chest (1 view) [facility] 04/05 05:49 Order name: EKG; Complete Time: 05:50 [facility] 04/05 05:49 Order name: Cardiac monitoring; Complete Time: 05:53 [facility] 04/05 05:49 Order name: EKG - Nurse/Tech; Complete Time: 05:53 [facility] 04/05 05:49 Order name: IV Saline Lock; Complete Time: 05:53 [facility] 04/05 07:08 Order name: CONS Physician Consult [facility] 04/05 07:08 Order name: Echo with Doppler [facility] 04/05 07:41 Order name: Urine Dipstick--Ancillary (enter results) eb 04/05 07:41 Order name: Test, Serum eb 04/05 05:49 Order name: Labs collected and sent; Complete Time: 05:54 [facility] 04/05 05:49 Order name: O2 Per Protocol; Complete Time: 05:53 [facility] 04/05 05:49 Order name: O2 Sat Monitoring; Complete Time: 05:53 [facility] Administered Medications: 06:02 Drug: Zofran 4 mg Route: IVP; Site: left forearm; ao 06:02 Drug: NS 0.9% 1000 ml Route: IV; Rate: 125 ml/hr; Site: left hand; ao 07:51 Follow up: Response: No adverse reaction; IV Status: Infusion continued upon admission sv 06:03 Drug: morphine 2 mg Route: IVP; Site: left forearm; ao 07:38 Drug: Coumadin 2.5 mg Route: PO; sv 07:51 Follow up: Response: No adverse reaction sv 07:38 Drug: Lasix 20 mg Route: IVP; Site: right forearm; sv 07:51 Follow up: Response: No adverse reaction sv 07:53 CANCELLED (unable to give d/t BP): morphine 2 mg IVP once sv Disposition: 04/05/18 07:01 Hospitalization ordered by Jace Chand for Observation. Preliminary diagnosis are Other chest pain, Cardiomegaly, Anemia, unspecified. - Bed requested for Telemetry/MedSurg (observation). - Status is Observation. sv - Condition is Fair. - Problem is new. - Symptoms have improved. UTI on Admission? No Signatures: Dispatcher [employer] EDMS Julianne Horn RN Cristina Portillo RN RN dw Anderson, Corey, MD MD cha Chretien, Felicia RN RN Easton Sanderson PA PA cp Ortiz, Alex RN RN Kimberlee Vega Corrections: (The following items were deleted from the chart) 07:11 07:01 Hospitalization Ordered by Jace Chand MD for Observation. Preliminary diagnosis eb is Other chest pain; Cardiomegaly; Anemia, unspecified. Bed requested for Telemetry/MedSurg (observation). Status is Observation. Condition is Fair. Problem is new. Symptoms have improved. UTI on Admission? No. antoni 07:31 07:11 04/05/2018 07:01 Hospitalization Ordered by Jace Chand MD for Observation. dw Preliminary diagnosis is Other chest pain; Cardiomegaly; Anemia, unspecified. Bed requested for Telemetry/MedSurg (observation). Status is Observation. Condition is Fair. Problem is new. Symptoms have improved. UTI on Admission? No. eb 07:53 05:49 morphine 2 mg IVP once ordered. antoni sv 07:53 07:52 morphine 2 mg IVP once ordered. sv sv 08:00 07:31 04/05/2018 07:01 Hospitalization Ordered by Jace Chand MD for Observation. sv Preliminary diagnosis is Other chest pain; Cardiomegaly; Anemia, unspecified. Bed requested for Telemetry/MedSurg (observation). Status is Observation. Condition is Fair. Problem is new. Symptoms have improved. UTI on Admission? No. dw
--- NOTE | 2018-04-05 07:02 | ER ---
Nurse's Notes [facility] Name: Yari Smith Age: 37 yrs Sex: Female : 1980 Arrival Date: 04/05/2018 Time: 05:42 Bed 4 Private MD: Diagnosis: Other chest pain;Cardiomegaly;Anemia, unspecified Presentation: 04/05 05:35 Presenting complaint: Patient states: that she had a fight with her and she got arrested. She then started to have chest pain around 0300. +ETOH. bp 111/68, heart rate of 102 and sats of 99%. Transition of care: patient was not received from another setting of care. Onset of symptoms was April 05, 2018 at 03:00. Risk Assessment: Do you want to hurt yourself or someone else? Patient reports no desire to harm self or others. Initial Sepsis Screen: Does the patient meet any 2 criteria? HR > 90 bpm. Yes Does the patient have a suspected source of infection? No. Patient's initial sepsis screen is negative. Care prior to arrival: Medication(s) given: ASA, 81 mg, x 4, IV initiated. 20 GA, in the left hand. 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 fc Historical: - Allergies: 05:54 No Known Allergies; fc - Home Meds: 05:54 atorvastatin 40 mg Oral tab 1 tab nightly [Active]; levothyroxine 100 mcg tab 1 tab fc once daily [Active]; Lasix 20 mg Oral tab 1 tab once daily [Active]; folic acid 1 mg Oral tab 1 tab once daily [Active]; Plavix 75 mg Oral tab 1 tab once daily [Active]; amiodarone 200 mg Oral tab 1 tab once daily [Active]; warfarin 2 mg Oral tab 1 tab once daily [Active]; fluoxetine 10 mg Oral tab nightly [Active]; promethazine 25 mg Oral tab 1 tab q6hrs prn [Active]; - PMHx: 05:54 Anxiety; CHRONIC NAUSEA; blood clots in legs in hips; DVT; Myocardial infarction; HEART fc FAILURE; Depression; PTSD; pulmonary emboli; UTI; Hypothyroidism; - PSHx: 05:54 pacer/defib; fc - Immunization history:: Last tetanus immunization: unknown. - Social history:: Smoking status: Patient/guardian denies using tobacco. - Ebola Screening: : Patient negative for fever greater than or equal to 101.5 degrees Fahrenheit, and additional compatible Ebola Virus Disease symptoms Patient denies exposure to infectious person Patient denies travel to an Ebola-affected area in the 21 days before illness onset. - Family history:: not pertinent. Screenin:50 Abuse screen: Denies threats or abuse. Nutritional screening: No deficits noted. Tuberculosis screening: No symptoms or risk factors identified. Fall Risk None identified. Assessment: 05:30 General: Appears in no apparent distress. uncomfortable, Behavior is agitated, anxious, ao crying. Pain: Complains of pain in chest Pain currently is 8 out of 10 on a pain scale. Neuro: Level of Consciousness is awake, alert, obeys commands, Oriented to person, place, time, situation, Appropriate for age Moves all extremities. Full function Speech is normal, Facial symmetry appears normal, Pupils are PERRLA. Cardiovascular: Capillary refill < 3 seconds Patient's skin is warm and dry. Respiratory: Airway is patent Respiratory effort is even, unlabored, Respiratory pattern is regular, symmetrical. GI: Abdomen is non-distended. : No signs and/or symptoms were reported regarding the genitourinary system. EENT: No signs and/or symptoms were reported regarding the EENT system. Derm: No signs and/or symptoms reported regarding the dermatologic system. Musculoskeletal: Circulation, motion, and sensation intact. Range of motion: intact in all extremities. 06:40 Reassessment: Patient appears in no apparent distress at this time. Patient and/or ao family updated on plan of care and expected duration. Pain level reassessed. Patient is alert, oriented x 3, equal unlabored respirations, skin warm/dry/pink. 07:25 General: Appears uncomfortable, Behavior is calm, cooperative. Pain: Complains of pain sv in chest Pain currently is 6 out of 10 on a pain scale. Neuro: Level of Consciousness is awake, alert, obeys commands, Oriented to person, place, time, situation, Moves all extremities. Cardiovascular: Patient's skin is warm and dry. Rhythm is sinus tachycardia. Respiratory: Respiratory effort is even, unlabored, Respiratory pattern is regular, symmetrical. Derm: Skin is pink, warm \T\ dry. Vital Signs: 05:35 BP 109 / 78; Pulse 107; Resp 24; Temp 97.1(O); Pulse Ox 94% on R/A; Weight 62.6 kg (R); fc Height 5 ft. 3 in. (160.02 cm) (R); Pain 7/10; 06:40 BP 122 / 82; Pulse 94; Resp 18; Pulse Ox 96% on R/A; aa1 05:35 Body Mass Index 24.45 (62.60 kg, 160.02 cm) ED Course: 05:35 Arm band placed on Patient placed in an exam room, on a stretcher. 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 Pulse ox on. NIBP on. fc 05:35 Maintain EMS IV. Dressing intact. Good blood return noted. Site clean \T\ dry. Gauge \T\ fc site: 20 gauge to left hand. 05:40 Missed attempt(s): 20 gauge in right upper arm. Bleeding controlled, band aid applied, aa1 catheter tip intact. 05:42 Patient arrived in ED. rg2 05:45 Initial lab(s) drawn, by fl, sent to lab. EKG done, by ED staff, reviewed by Easton Villar MD. Inserted saline lock: 22 gauge in right forearm, using aseptic technique. Blood collected. 05:47 Easton Villar MD is Attending Physician. antoni 05:49 Triage completed. fc 05:50 Patient has correct armband on for positive identification. Placed in gown. Bed in low fc position. Call light in reach. Side rails up X2. 05:51 No provider procedures requiring assistance completed. fc 05:53 Solo Velazquez RN is Primary Nurse. ao 06:30 X-ray completed. Portable x-ray completed in exam room. Patient tolerated procedure kw well. 07:00 Jace Chand MD is Hospitalizing Provider. antoni 07:04 Report given to Natan TROY. ao 07:05 XRAY Chest (1 view) In Process Unspecified. EDMS 07:12 Primary Nurse role handed off by Solo Velazquez, SYDNI sv 07:12 Julianne Horn RN is Primary Nurse. sv 07:25 T\T\S collected, blood band applied to patient. sv 07:48 Patient admitted, IV remains in place. intact. sv Administered Medications: 06:02 Drug: Zofran 4 mg Route: IVP; Site: left forearm; ao 06:02 Drug: NS 0.9% 1000 ml Route: IV; Rate: 125 ml/hr; Site: left hand; ao 07:51 Follow up: Response: No adverse reaction; IV Status: Infusion continued upon admission sv 06:03 Drug: morphine 2 mg Route: IVP; Site: left forearm; ao 07:38 Drug: Coumadin 2.5 mg Route: PO; sv 07:51 Follow up: Response: No adverse reaction sv 07:38 Drug: Lasix 20 mg Route: IVP; Site: right forearm; sv 07:51 Follow up: Response: No adverse reaction sv 07:53 CANCELLED (unable to give d/t BP): morphine 2 mg IVP once sv Outcome: 07:01 Decision to Hospitalize by Provider. antoni 07:48 Admitted to Tele accompanied by tech, via stretcher, room 223, with chart, Report sv called to Magui TROY 07:48 Condition: stable 07:48 Instructed on the need for admit. 08:00 Patient left the ED. sv Signatures: Dispatcher [employer] EDMS Elizabeth Morataya rg2 Julianne Horn RN RN sv Ana María Caba, RN RN aa1 Easton Villar MD MD cha Chretien, Felicia, RN Gia Vang Alex, RN RN julien
[2018-04-05] MEDS ORDERED: WARFARIN SODIUM 5 MG TAB ONE (07:20)
[2018-04-05] MEDS ORDERED: FUROSEMIDE 20 MG/ 2ML VIAL ONE (07:20)
[2018-04-05 08:20] LABS: Urine Blood NEGATIVE (NEG); Urine Glucose NEGATIVE (NEG); Urine Protein NEGATIVE (NEG); Urine Specific Gravity 1.005 (1.005-1.030); Urine pH 6.5 (5.0-7.0)
[2018-04-05] MEDS ORDERED: ONDANSETRON 4 MG/2 ML VIAL IV PRN (08:21)
--- NOTE | 2018-04-05 08:36 | EKG ---
Test Date: 2018-04-05 Test Time: 05:43:50 Waste Reduction Coordinator: FAUSTO MEASUREMENT RESULTS: Intervals: Rate: 108 AR: 152 QRSD: 92 QT: 330 QTc: 442 [place]: P: 63 AR: 152 QRS: -32 T: 34 INTERPRETIVE STATEMENTS: Sinus tachycardia Left axis deviation Anterior infarct, age undetermined Abnormal ECG Compared to ECG 03/11/2018 15:39:04 Left-axis deviation now present Left anterior fascicular block no longer present Myocardial infarct finding still present Electronically Signed On 04-05-18 08:35:03 CDT by Tomás Rivera
[2018-04-05 08:40] LABS: Barbiturates NEGATIVE (NEGATIVE); Benzodiazepines POSITIVE (NEGATIVE); Cocaine NEGATIVE (NEGATIVE); METHAMPHETAM NEGATIVE (NEGATIVE); Methadone NEGATIVE (NEGATIVE); Opiates NEGATIVE (NEGATIVE); Phencyclidine NEGATIVE (NEGATIVE); THC Cannibis NEGATIVE (NEGATIVE)
[2018-04-05 08:57] LABS: ALT/SGPT 21 U/L (12-78); AST/SGOT 21 U/L (15-37); Albumin 3.5 g/dL (3.4-5.0); Alkaline Phosphatase 95 U/L (45-117); BUN Blood Urea Nitrogen 6 mg/dL (7-18); Bicarbonate 20 mmol/L (21-32); Bilirubin Direct 0.1 mg/dL (0-0.2); Bilirubin Total 0.4 mg/dL (0.2-1.0); CKMB Creatine Kinase MB 2.1 ng/mL (0.3-3.6); Creatine Phosphokinase 63 U/L (26-192); Glucose Level 106 mg/dL (74-106); Lipase 296 U/L (73-393); Magnesium 1.9 mg/dL (1.8-2.4); NT PRO-BNP 4667 pg/mL (<125); Protein, Total 7.6 g/dL (6.4-8.2); Sodium Level 142 mmol/L (136-145)
[2018-04-05] MEDS ORDERED: LISINOPRIL 10 MG TAB PO SCH ×2 (09:00→10:45)
[2018-04-05] MEDS ORDERED: FUROSEMIDE 40 MG/4 ML VIAL IV SCH (09:00)
--- NOTE | 2018-04-05 09:03 | RAD REPORT ---
EXAM DESCRIPTION: RAD - Chest Single View - 04/05/2018 7:06 am CLINICAL HISTORY: CHEST PAIN Chest pain. COMPARISON: Chest Single View dated 03/11/2018; Chest Single View dated 03/06/2018; Chest Single View dated 02/16/2018; Chest Single View dated 12/31/2017 FINDINGS: Portable technique limits examination quality. The lungs are grossly clear. The heart is normal in size. Single lead pacer/defibrillator device note d.No fracture seen. IMPRESSION: No acute intrathoracic process suspected.
[2018-04-05] MEDS: ACETAMINOPHEN 500 MG TAB PO PRN (09:28)
[2018-04-05] MEDS ORDERED: PROMETHAZINE 25 MG TABLET PO PRN (09:38)
[2018-04-05 09:47] VITALS: BMI 25.3
[2018-04-05 11:47] LABS: Urine Appearance CLEAR; Urine Bilirubin NEGATIVE (NEG); Urine Blood NEGATIVE (NEG); Urine Color YELLOW; Urine Glucose NEGATIVE (NEG); Urine Protein NEGATIVE (NEG); Urine Specific Gravity <=1.005 (1.005-1.030); Urine Urobilinogen 0.2 mg/dL (0.2-1.0); Urine pH 5.5 (5.0-7.0)
[2018-04-05 11:48] LABS: Urine Microscopic Reflex NO UMIC
[2018-04-05] MEDS ORDERED: POTASSIUM 25 MEQ EFFERV TAB PO ONE (13:19)
[2018-04-05] MEDS ORDERED: VANCOMYCIN 1.25 GM in NA CHLORIDE 0.9% 250 ML IVPB SCH (13:30)
[2018-04-05] MEDS ORDERED: WARFARIN SODIUM 2 MG TAB PO SCH (17:00)
[2018-04-05] MEDS: FUROSEMIDE 40 MG/4 ML VIAL IV SCH (17:00)
[2018-04-05] MEDS: CARVEDILOL 12.5 MG TAB PO SCH (17:08)
[2018-04-05] MEDS ORDERED: CARVEDILOL 12.5 MG TAB PO SCH (18:00)
[2018-04-05] MEDS ORDERED: FLUOXETINE 10 MG CAP PO SCH (21:00)
[2018-04-05] MEDS ORDERED: ATORVASTATIN 40 MG TAB PO SCH (21:00)
--- NOTE | 2018-04-06 02:44 | HP ---
Date of Admission: 04/05/2018 Processing Mgr: Dr. Rivera with Cardiology. Chief Complaint: Shortness of breath. History Of Present Illness: The patient is a 37-year-old female with past medical history of signifi cant heart conditions including congestive heart failure with very low ejection fraction around 20% a long with coronary artery disease status post UT, stent x2, history of DVTs on Coumadin, hypertension , ulcerative colitis, GERD. The patient comes in with complaints of shortness of breath and some juan st tightness. The patient's symptoms are constant, moderate, progressively worsening. The patient d id take some antacids, which improved her symptoms. The patient has had similar episodes in the past . The patient came in for further evaluation. Her workup revealed normal WBC count. Her troponin l evel was 0.06. Her UDS was positive for benzodiazepines and serum alcohol level was elevated at 83. Her EKG did not show any acute changes. The patient was then referred for admission. When seen in the ER, she was awake, alert, oriented x3, in some mild distress. Past Medical History: Congestive heart failure, status post defibrillator, hiatal hernia, ulcerative colitis, GERD, history of DVTs in lower extremity in 2010 on chronic anticoagulation, hypertension, history of complications in . Past Surgical History: Cardiac stents x2, x2, removal of blood clots, defibrillator placem ent. Allergies: NO KNOWN DRUG ALLERGIES. Medications: List reviewed. Social History: The patient was a heavy cigarette smoker; however, states that she has quit since he r heart attack last year. Denies any alcohol use; however, her alcohol level was elevated and admitt ed to drinking Dilma; otherwise used to be a very heavy daily drinker before her recent cardiac i ssues. The patient is for 15+ years. Has 2 children. Does not work. Review of Systems: An 11-point system reviewed, negative except as per HPI. Family History: No history of premature coronary artery disease or blood clots. Physical Examination: Vital Signs: Temperature 97.8, heart rate 97, blood pressure 98/57, respirations 16, O2 98% on room air. General: Awake, alert, oriented x3, in some mild distress, appears older than stated age. HEENT: Normocephalic, atraumatic. PERRLA. EOMI. Moist mucous membranes. Oropharynx is clear. Po or dentition. Conjunctiva anicteric. Neck: Supple. No JVD. Trachea midline. CV: S1, S2. Sinus tachycardia. Peripheral pulses are present. No murmurs. Respiratory: Diminished breath sounds. Some crackles heard. No wheezing. Gastrointestinal: Abdomen is soft, nontender, nondistended. Positive bowel sounds. No guarding or rigidity. Extremities: No clubbing, cyanosis. Trace pedal edema. Neurologic: Cranial nerves 2 through 12 intact grossly. No focal neurological deficit. Speech is n ormal. Strength is 5/5 bilateral lower extremities. Skin: No rashes. Normal skin turgor. Psych: Mood is dysphoric. Affect is congruent with mood. Insight and judgment are poor. Laboratory Data: INR 1.96, WBC 7.1, H and H 7.4 and 28.2, platelets 527. Sodium 142, potassium 3, c hloride 110, CO2 20, BUN 6, creatinine 0.7, glucose 106, calcium 8.5, magnesium 1.9. Troponin 0.06. BNP 4667. Serum test is negative. UA is negative. UDS shows positive for benzodiazepine . Serum alcohol level is 83. EKG shows sinus tachycardia, rate of 108, left axis deviation. Chest x-ray personally reviewed, shows no acute intrathoracic process suspected. Single lead pacer d efibrillator device noted. Assessment And Plan: A 37-year-old female with, 1.Acute congestive heart failure, systolic dysfunction. We will start on congestive heart failure g uidelines. Consult Cardiology. The patient just had echocardiogram done last week. 2.Elevated troponin level, likely secondary to above. 3.Alcohol abuse. 4.Anemia, normocytic normochromic, likely anemia of chronic disease. 5.Hypokalemia. We will replace and monitor. 6.Hypertension, currently hypotensive. 7.Gastroesophageal reflux disease. Continue with PPI. 8.History of ulcerative colitis. 9.Hiatal hernia. 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 We will co ntinue Coumadin and monitor INR. 11.Gastrointestinal and deep venous thrombosis prophylaxis with PPI and the patient is already on Co umadin. /MODAlonzo Voice ID: [id number]
[2018-04-06] MEDS: ACETAMINOPHEN 500 MG TAB PO PRN (04:38)
[2018-04-06 05:26] LABS: Absolute Lymphocytes (CBC) 2.4 K/uL (0.7-4.9); Absolute Monocytes 0.5 K/uL (0.1-1.3); Absolute Neutrophil 4.6 K/uL (1.8-8.0); Basophils % 0.5 % (0-1.3); Eosinophils % 2.7 % (0-4.4); Hematocrit 27.9 % (36.0-45.0); Lymphocytes % 30.7 % (15.3-44.8); MCH 30.4 pg (27.0-35.0); MCV 91.5 fL (80-100); Monocytes % 6.3 % (3.3-12.3); RBC Red Blood Cell Count 3.05 M/uL (3.86-4.86)
[2018-04-06] MEDS: CARVEDILOL 12.5 MG TAB PO SCH (05:36)
[2018-04-06 05:37] LABS: ALT/SGPT 18 U/L (12-78); AST/SGOT 17 U/L (15-37); Alkaline Phosphatase 88 U/L (45-117); BUN Blood Urea Nitrogen 19 mg/dL (7-18); Bicarbonate 27 mmol/L (21-32); Bilirubin Total 0.6 mg/dL (0.2-1.0); Glucose Level 90 mg/dL (74-106); Protein, Total 6.8 g/dL (6.4-8.2); Sodium Level 144 mmol/L (136-145)
[2018-04-06 05:51] LABS: Protime INR 2.51
[2018-04-06] MEDS ORDERED: LEVOTHYROXINE SOD 0.1 MG TAB PO SCH (06:00)
[2018-04-06] MEDS ORDERED: NA CHLORIDE 0.9% 1,000 ML IV ONE (08:00)
[2018-04-06] MEDS: FUROSEMIDE 40 MG/4 ML VIAL IV SCH (08:21)
[2018-04-06 08:23] VITALS: BP 84/56
[2018-04-06 08:32] VITALS: O2SAT 98
[2018-04-06 08:49] VITALS: TEMP 97.3
[2018-04-06] MEDS ORDERED: CLOPIDOGREL 75 MG TABLET PO SCH (09:00)
[2018-04-06] MEDS ORDERED: AMIODARONE HCL 200 MG TAB PO SCH (09:00)
[2018-04-06] MEDS ORDERED: FOLIC ACID 1 MG TABLET PO SCH (09:00)
--- NOTE | 2018-04-06 14:06 | CON ---
Date of Consultation: 04/05/2018 Ms. Smith is 37 years old. She was admitted to Dr. Chand's service. I saw her on 04/05/2018. Reason For Consultation: Shortness of breath, chest pain, congestive heart failure. History Of Present Illness: Ms. Smith is an unfortunate 37-year-old woman, who has a history of alc ohol abuse, has a history of idiopathic cardiomyopathy and maybe ischemic cardiomyopathy. She stated that she has had multiple stents before. She has a history of chronic systolic congestive heart albina lure with an ejection fraction of 20%-25% about two weeks ago. Denies history of depression. Has a history of deep venous thrombosis, for which she takes Coumadin chronically. She is supposed to get her defibrillator check tomorrow. at the [facility], I am not so sure how comp liant with her regimen, she came in with basically congestive heart failure exacerbation. Past Medical History: As stated earlier. Allergies: NONE. Review of Systems: Negative. Social History: Positive for alcohol. Family History: Positive for coronary artery disease. Medications: At home include amiodarone, Lasix, BiDil, Lipitor, Plavix and Coumadin. Physical Examination: General: The patient is edentulous but no acute distress. Vital signs: Stable. Cardiac Exam: Revealed a regular rhythm and rate without any murmurs, gallops, or rubs. HEENT: Negative. Abdomen: Benign. Extremities: Revealed no clubbing, cyanosis, or edema. Diagnostic Data: Her hemoglobin is 9.4. EKG showed sinus tachycardia with left axis deviation and p ossible old anterior SD. Ejection fraction is 20%-25%. Impression And Plan: 1.Acute exacerbation of chronic systolic congestive heart failure. Echocardiogram is pending. She has received an IV Lasix and kind of very surprised on her medical regimen, she is really not taking any cardiomyopathy medication. She is not on Entresto or Coumadin at home. She is not on CATE inhibi tors or angiotensin receptor blockers. I am not so sure if this is because of noncompliance or she follows up with her doctor in [place] to get her defibrillator checked [QAMARKER] resolved . 2.Atrial fibrillation, it has resolved on amiodarone. 3.History of deep venous thrombosis, on Coumadin. 4.Dyslipidemia, on Lipitor. 5. antibiotics. 6. medications. There is certainly no need to do any further cardiac workup regimen. 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 She stated that candy trujillo has a defibrillator that needs to be checked tomorrow . STEPHANIE/CESIA Voice ID: [id number] Report ID: [id number]
--- NOTE | 2018-04-07 10:43 | DS ---
Date of Discharge: 04/06/2018 Consultants: Dr. Rivera with Cardiology. Admitting Diagnoses: 1.Acute congestive heart failure, systolic dysfunction. 2.Elevated troponin level. 3.Alcohol abuse. 4.Normocytic normochromic anemia, likely anemia of chronic disease. 5.Hypokalemia. 6.Hypertension. 7.History of essential hypertension. 8.Gastroesophageal reflux disease. 9.History of ulcerative colitis. 10.Hiatal hernia. 11.History of deep venous thrombosis of the lower extremities, on anticoagulation. Discharge Diagnoses: 1.Acute congestive heart failure, systolic dysfunction, ejection fraction of 20%-25% from 03/14/2018 , improved. 2.Elevated troponin level secondary to above. 3.Alcohol abuse, counseled. 4.Normocytic normochromic anemia, likely anemia of chronic disease. 5.Hypokalemia, replaced. 6.Hypotension. 7.Gastroesophageal reflux disease, proton pump inhibitor. 8.History of ulcerative colitis. 9.History of hiatal hernia. 10.History of deep venous thrombosis, on Coumadin with therapeutic INR. Hospital Course: The patient is a 37-year-old female with significant comorbid conditions including cardio, congestive heart failure with EF of around 20%, coronary artery disease status post stent, hi story of DVTs, on Coumadin, along with other illnesses, who comes in with shortness of breath. The p atient was found to have clear lungs. Her labs showed elevated BNP and elevated troponin level, like ly secondary to the CHF. The patient was started on diuresis. Of note, the patient was not taking a ny heart medications including beta theresa or CATE inhibitor or Aldactone given her low ejection frac tion. The patient is on Plavix and Coumadin. The patient was seen by Cardiology, Dr. Rivera. Echo cardiogram was not repeated as the last echocardiogram was in February. The patient diuresed well. Her shortness of breath resolved. She was counseled extensively on abstaining from alcohol, which will w orsen her cardiomyopathy and congestive heart failure. The patient was then cleared for discharge fr om Cardiology standpoint. She did have some low blood pressure 80s/50s. She was bolused. She usual ly runs in the 90s systolic at home. The patient was asymptomatic. The patient was able to tolerate her diet. She was ambulating well without any difficulty. No further shortness of breath. The pat ient was sent home in a stable condition. Activity: As tolerated. Medications: As per medication reconciliation list. Diet: Low-sodium, fluid-restricted diet. Followup: Follow up with PCP in 2-3 days. Follow up with primary developing machine tender in [place]. The [facility] ient has an appointment on 16. Return to ER for worsening condition. Physical Examination: General: Awake, alert, oriented, no acute distress. CV: S1, S2. No murmurs. Respiratory: Moving air well bilaterally. No wheezing. Gastrointestinal: Abdomen is soft, nontender, nondistended. Positive bowel sounds. Extremities: No clubbing, cyanosis, edema. Neurologic: Nonfocal. SA/MODL Voice ID: [id number] Report ID: [id number]
--- NOTE | 2018-04-11 08:53 | CON ---
Date of Consultation: 04/05/2018 Ms. Smith is 37 years old. She was admitted to Dr. Chand's service. I saw her on 04/05/2018. Reason For Consultation: Shortness of breath, chest pain, congestive heart failure. History Of Present Illness: Ms. Smith is an unfortunate 37-year-old woman, who has a history of alc ohol abuse, has a history of idiopathic cardiomyopathy and maybe ischemic cardiomyopathy. She stated that she has had multiple stents before. She has a history of chronic systolic congestive heart albina lure with an ejection fraction of 20%-25% about two weeks ago. Denies history of depression. Has a history of deep venous thrombosis, for which she takes Coumadin chronically. She is supposed to get her defibrillator check tomorrow. She has been seeing Dr. Chopra at the [facility], I am not so sure how compliant with her regimen, she came in with basically congestive heart failure exacerba tion. Past Medical History: As stated earlier. Allergies: NONE. Review of Systems: Negative. Social History: Positive for alcohol. Family History: Positive for coronary artery disease. Medications: At home include amiodarone, Lasix, BiDil, Lipitor, Plavix and Coumadin. Physical Examination: General: The patient is edentulous but no acute distress. Vital signs: Stable. HEENT Exam: Negative. Neck: Supple. No bruit, lymphadenopathy, JVD, or thyromegaly. Chest: Clear to auscultation and percussion. Cardiac Exam: Revealed a regular rhythm and rate without any murmurs, gallops, or rubs. HEENT: Negative. Abdomen: Benign. Extremities: Revealed no clubbing, cyanosis, or edema. Diagnostic Data: Her hemoglobin is 9.4. EKG showed sinus tachycardia with left axis deviation and p ossible old anterior CO. Ejection fraction is 20%-25%. Impression And Plan: 1.Acute exacerbation of chronic systolic congestive heart failure. Echocardiogram is pending. She has received an IV Lasix and kind of very surprised on her medical regimen, she is really not taking any cardiomyopathy medication. She is not on Entresto or Coumadin at home. She is not on CATE inhibi tors or angiotensin receptor blockers. I am not so sure if this is because of noncompliance or she follows up with her doctor in [place] to get her defibrillator checked [QAMARKER] resolved . 2.Atrial fibrillation, it has resolved on amiodarone. 3.History of deep venous thrombosis, on Coumadin. 4.Dyslipidemia, on Lipitor. 5. antibiotics. 6. medications. There is certainly no need to do any further cardiac workup regimen. 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 She stated that candy trujillo has a defibrillator that needs to be checked tomorrow . STEPHANIE/CESIA Voice ID: [id number] Report ID: [id number]
== END 2018-04-06 12:00 | disposition home or self-care (01) ==
LOC: ER 05:39 → ERHOLD 07:03 → 2ND 07:48
PROVIDERS: ADMIT Family Medicine; ATTEND Family Medicine
DX: I11.0 Hypertensive heart disease with heart failure (principal); I50.23 Acute on chronic systolic (congestive) heart failure; I95.9 Hypotension, unspecified; F10.10 Alcohol abuse, uncomplicated; D64.9 Anemia, unspecified; E87.6 Hypokalemia; K21.9 Gastro-esophageal reflux disease without esophagitis; R79.9 Abnormal finding of blood chemistry, unspecified; I48.91 Unspecified atrial fibrillation; E78.5 Hyperlipidemia, unspecified; I25.10 Atherosclerotic heart disease of native coronary artery without angina pectoris; Z95.5 Presence of coronary angioplasty implant and graft; Z95.810 Presence of automatic (implantable) cardiac defibrillator; Z86.718 Personal history of other venous thrombosis and embolism; Z79.01 Long term (current) use of anticoagulants
CPT/HCPCS: 36415; 71045; 80048; 80053; 80076; 80307; 80320; 81003; 82550; 82553; 83690; 83735; 83880; 84132; 84484; 84703; 85025; 85610; 85730; 86850; 86900; 86901; 93005; 94760; 99285; G0378; J1940; J2405; J7030